=== PATIENT | male | born 1985 | race Caucasian/White ===

== ENCOUNTER 2016-07-24 19:09 | Inpatient (IN) | payer OTHER ==
[~2016-07-24] VITALS: Ht 180.3 cm; Wt 58.0 kg
[2016-07-24] MEDS ORDERED: SODIUM CHLORIDE 0.9% 1000ML 1,000 ML IV STA (19:40)
[2016-07-24] MEDS ORDERED: SODIUM CHLORIDE 0.9% 500ML 500 ML IV STA (19:40)
--- NOTE | 2016-07-24 20:02 | EMERGENCY ROOM VISIT NOTE ---
History Report prepared by Frandy: Karen Reyes Under the Supervision of: Dr. Katelyn Dave M.D. First contact with patient: 19:29 Chief Complaint: WEAKNESS Stated Complaint: COUGH,NO ENERGY,WEAK History of Present Illness The patient is a 31 year old male who presents to the Emergency Room with complaints of worsening weakness over the past several weeks. The patient notes that initially 3 weeks ago he developed head cold symptoms including post nasal drip which developed into a worse chest cold. He saw his PCP initially and was prescribed codeine cough syrup. His cough continued to worsen so he saw his PCP again and was put on an antibiotic, which he finished yesterday. Since then, he has continued to cough and bring up sputum. He also has developed chills, shortness of breath, and significantly worsened weakness. He can barely stand up over the past day or two and he states it takes him about an hour to get himself out of bed. The patient has baseline balance issues and weakness as he has a history of MS, but it is never this bad. He is unsure if he has had any fevers. The patient has not been eating much and has been trying to drink Gatorade because he has been feeling dehydrated. He self catheterizes and has not noticed any urinary symptoms. The patient typically moves around throughout the day but since he has been sick he has been fairly immobile. He developed a bedsore on his left hip since becoming ill, but it does not hurt. He has lost only a few pounds in the past week but does report losing about 30 pounds in the past year. He was diagnosed with MS 6-7 years ago. The patient does not have a history of blood clots. 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 A total of 10 systems reviewed and were otherwise negative. Past Medical & Surgical Medical Problems: (1) Cavitary lesion of lung (2) Multiple sclerosis (3) Multiple sclerosis Family History Cancer Diabetes mellitus Hypertension Lung disease Social History Smoking Status: Never Smoker Smokeless Tobacco Use: No Alcohol Use: none Housing Status: lives with family Occupation Status: unemployed Current/Historical Medications Scheduled Amantadine Hcl (Symmetrel), 100 MG PO BID Bupropion (Wellbutrin Sr), 100 MG PO QAM Bupropion (Wellbutrin Sr), 100 MG PO AFTERNOON Cholecalciferol (Vitamin D), 5,000 UNIT PO DAILY Coenzyme [id number] (Coenzyme Q10), 1 CAP PO DAILY Multivitamin (Multivitamin), 1 TAB PO DAILY Nutritional Supplements (Dhea), 1 CAP PO DAILY Oxybutynin Chloride (Oxybutynin Chloride ER), 10 MG PO BID Teriflunomide (Aubagio), 14 MG PO DAILY Trazodone Hcl (Desyrel), 150-300 MG PO HS Scheduled PRN Meclizine HCl (Meclizine 25), 25 MG PO TID PRN for Nausea or Vomiting Allergies Coded Allergies: Sulfanilamide (Verified Allergy, Severe, Neck pain; hives, 07/24/16) Clindamycin (Verified Allergy, Mild, Rash, 07/24/16) Physical Exam Vital Signs Date Time Temp Pulse Resp B/P Pulse Ox O2 Delivery O2 Flow Rate FiO2 07/24/16 21:45 97 18 105/57 97 Room Air 07/24/16 20:52 107 07/24/16 20:24 101 07/24/16 19:17 36.3 92 18 108/78 93 Room Air Physical Exam Vital signs reviewed. General: Chronically ill-appearing 31 year old male, cachectic, in no significant distress. HEENT: No scleral icterus, PERRLA, neck supple. Atraumatic. Cardiovascular: Regular rate and rhythm, no extra sounds. Pulmonary: Diminished right upper breath sounds to auscultation, normal work of breathing. Abdomen: Soft, nontender, nondistended, positive bowel sounds. Musculoskeletal: Atraumatic, no peripheral edema. Neurologic: Patient awake alert and oriented x 3, equal strength in all 4 extremities although generally weak. Cranial nerves 2 through 12 grossly intact. Skin: Warm, dry, no rash Medical Decision & Procedures ER Provider Diagnostic Interpretation: X-ray results as stated below per interpretation by me and the radiologist: CHEST ONE VIEW PORTABLE HISTORY: Short of breath. COMPARISON: None. FINDINGS: The left lung is clear. No pleural effusions. No pneumothorax. The heart is normal in size. There is a large air-fluid level within the right upper lobe consistent with a cavitary lesion. This measures 8 cm. IMPRESSION: An 8 cm right upper lobe cavitary lesion. Given the patient's age this favors an infectious process such as tuberculosis. A neoplastic process is considered less likely but not entirely excluded. Pulmonary consultation is recommended. Electronically signed by: Emmanuel Vega M.D. 07/24/2016 8:24 PM Dictated Date/Time: 07/24/2016 8:19 PM Laboratory Results 07/24/16 20:58 Red Blood Count 4.02, Mean Corpuscular Volume 85.1, Mean Corpuscular Hemoglobin 28.4, Mean Corpuscular Hemoglobin Concent 33.3, Mean Platelet Volume 9.6, Neutrophils (%) (Auto) 81.5, Lymphocytes (%) (Auto) 8.0, Monocytes (%) (Auto) 8.8, Eosinophils (%) (Auto) 1.0, Basophils (%) (Auto) 0.2, Neutrophils # (Auto) 14.04, Lymphocytes # (Auto) 1.37, Monocytes # (Auto) 1.52, Eosinophils # (Auto) 0.17, Basophils # (Auto) 0.03 07/24/16 20:58 Test 07/24/16 20:58 07/24/16 22:09 White Blood Count 17.22 K/uL (4.8-10.8) Red Blood Count 4.02 M/uL (4.7-6.1) Hemoglobin 11.4 g/dL (14.0-18.0) Hematocrit 34.2 % (42-52) Mean Corpuscular Volume 85.1 fL (80-100) Mean Corpuscular Hemoglobin 28.4 pg (25-34) Mean Corpuscular Hemoglobin Concent 33.3 g/dl (32-36) Platelet Count 371 K/uL (130-400) Mean Platelet Volume 9.6 fL (7.4-10.4) Neutrophils (%) (Auto) 81.5 % Lymphocytes (%) (Auto) 8.0 % Monocytes (%) (Auto) 8.8 % Eosinophils (%) (Auto) 1.0 % Basophils (%) (Auto) 0.2 % Neutrophils # (Auto) 14.04 K/uL (1.4-6.5) Lymphocytes # (Auto) 1.37 K/uL (1.2-3.4) Monocytes # (Auto) 1.52 K/uL (0.11-0.59) Eosinophils # (Auto) 0.17 K/uL (0-0.5) Basophils # (Auto) 0.03 K/uL (0-0.2) RDW Standard Deviation 42.2 fL (36.4-46.3) RDW Coefficient of Variation 13.6 % (11.5-14.5) Immature Granulocyte % (Auto) 0.5 % Immature Granulocyte # (Auto) 0.09 K/uL (0.00-0.02) Toxic Granulation 1+ D-Dimer 1080 ug/L FEU (0-500) Anion Gap 9.0 mmol/L (3-11) Est Creatinine Clear Calc Drug Dose 135.3 ml/min Estimated GFR () > 150.0 Estimated GFR (Non- 129.6 BUN/Creatinine Ratio 20.6 (10-20) Calcium Level 8.2 mg/dl (8.5-10.1) Magnesium Level 1.6 mg/dl (1.8-2.4) Total Bilirubin 0.6 mg/dl (0.2-1) Direct Bilirubin 0.3 mg/dl (0-0.2) Aspartate Amino Transf (AST/SGOT) 56 U/L (15-37) Alanine Aminotransferase (ALT/SGPT) 35 U/L (12-78) Alkaline Phosphatase 148 U/L (45-117) Total Creatine Kinase 639 U/L (39-308) Creatine Kinase MB 2.5 ng/ml (0.5-3.6) Creatine Kinase MB Ratio 0.4 (0-3.0) Troponin I < 0.015 ng/ml (0-0.045) Total Protein 6.4 gm/dl (6.4-8.2) Albumin 2.0 gm/dl (3.4-5.0) Lipase 130 U/L (73-393) Influenza Type A Antigen Neg for Influ A (NEG) Influenza Type B Antigen Neg for Influ B (NEG) Laboratory results per my review. Medications Administered Medications (Trade) Dose Ordered Sig/Camilo Route Start Time Stop Time Status Last Admin Dose Admin Sodium Chloride 500 ml @ 999 mls/hr Q31M STAT IV 07/24/16 19:40 07/24/16 20:10 DC 07/24/16 21:45 999 MLS/HR Sodium Chloride (Nss 1000ml) 1,000 ml @ 125 mls/hr Q8H STAT IV 07/24/16 19:40 07/25/16 03:39 07/24/16 21:45 125 MLS/HR Piperacillin Sod/ Tazobactam Sod (Zosyn Iv) 4.5 gm NOW STAT IV 07/24/16 21:21 07/24/16 21:23 DC 07/24/16 21:45 4.5 GM Levofloxacin (Levaquin / D5W) 750 mg NOW ONCE IV 07/24/16 21:30 07/24/16 21:31 DC 07/24/16 21:45 750 MG ECG Indication: weakness Rate (beats per minute): 106 Rhythm: sinus tachycardia Findings: no ectopy, other (poor quality baseline for interpretation) ED Course 1938: The patient was evaluated in room B3. A complete history and physical examination was performed. Ordered NSS 1000 ml @ 125 mls/hr IV, NSS 500 ml @ 999 mls/hr IV. 2021: I discussed the chest x-ray results with Dr. Baez - Radiology. 2031: Upon reevaluation, the patient is resting comfortably. I discussed laboratory and radiographic results with the patient. He verbalized agreement of the treatment plan. 2034: I discussed the case with Dr. Olivarez - Infectious Disease. He said that TB is pretty unlikely given our location here and that the patient has had no travel outside of the country. He recommended isolation for 24 hours and a work- up. 2041: I spoke with Dr. Chun of the [facility]. The patient will be evaluated for further management and care. 2120: Ordered Zosyn 4.5 gm IV. 2129: Ordered Levofloxacin 750 mg IV. Medical Decision Differential diagnosis: Etiologies such as sepsis, UTI, pneumonia, metabolic, electrolyte abnormalities , cardiac sources, intracerebral event, toxicologic, neurologic, as well as others were entertained. This patient was evaluated and appeared to be in no significant distress. He does appear to be chronically ill on exam. Per family members he has lost a significant amount of weight over the last year. The patient has been on antibiotics, he believes it was amoxicillin, for a cough. Chest x-ray was performed and reveals a large 8 cm right sided cavitary lesion. Per radiology there is a concern for TB given the patient's immunocompromised state. I did speak with Dr. Olivarez of infectious disease who feels that given the patient's lack of travel and location [place] that TB is less likely. He has recommended AFB smears. The patient remained on precautions. Patient was given IV Zosyn IV Levaquin and hydrated with normal saline solution. The case was discussed with Dr. Chun of the hospitalist service who will evaluate the patient for further management. Patient and family are aware of the plan and agree. Consults Time Called: -- Consulting Physician: Dr. Baez - Radiology Returned Call: 2021 I discussed the chest x-ray results with Dr. Baez - Radiology. Additional Consults: Time Called: 2029 Consulted Physician: Dr. Olivarez - Infectious Disease Returned Call: 2034 Additional Comments: I discussed the case with Dr. Olivarez - [facility]. He said that TB is pretty unlikely given our location here and that the patient has had no travel outside of the country. He recommended isolation for 24 hours and a work-up. Time Called: 2029 Consulted Physician: Dr. Chun of the [facility] Returned Call: 2041 Additional Comments: I spoke with Dr. Chun of the [facility]. The patient will be evaluated for further management and care. Impression Primary Impression: Cavitary pneumonia Additional Impressions: Multiple sclerosis, Cachexia Scribe Attestation The scribe's documentation has been prepared under my direction and personally reviewed by me in its entirety. I confirm that the note above accurately reflects all work, treatment, procedures, and medical decision making performed by me. Departure Information Dispostion Being Evaluated By Hospitalist Referrals Mani Chao M.D. (PCP) Patient Instructions A Signature Page, My [facility]
--- NOTE | 2016-07-24 20:26 | DIAGNOSTIC IMAGING REPORT ---
CHEST ONE VIEW PORTABLE HISTORY: Short of breath. COMPARISON: None. FINDINGS: The left lung is clear. No pleural effusions. No pneumothorax. The heart is normal in size. There is a large air-fluid level within the right upper lobe consistent with a cavitary lesion. This measures 8 cm. IMPRESSION: An 8 cm right upper lobe cavitary lesion. Given the patient's age this favors an infectious process such as tuberculosis. A neoplastic process is considered less likely but not entirely excluded. Pulmonary consultation is recommended. Electronically signed by: Emmanuel Vega M.D. 07/24/2016 8:24 PM Dictated Date/Time: 07/24/2016 8:19 PM
[2016-07-24] MEDS ORDERED: COENCAP8 PO (20:38)
[2016-07-24] MEDS ORDERED: AMAN100T PO (20:38)
[2016-07-24] MEDS ORDERED: [UNRECOGNIZED DRUG - CODE] PO (20:38)
[2016-07-24] MEDS ORDERED: DTRSR/10 PO (20:38)
[2016-07-24] MEDS ORDERED: MECL-91 PO (20:38)
[2016-07-24] MEDS ORDERED: BUPR100T8 PO ×2 (20:38)
[2016-07-24] MEDS ORDERED: NUTR50CA PO (20:38)
[2016-07-24] MEDS ORDERED: TRAZ1TAB52 PO (20:38)
[2016-07-24] MEDS ORDERED: MULT-506 PO (20:38)
[2016-07-24] MEDS ORDERED: CHOL1TAB42 PO (20:38)
[2016-07-24 21:18] LABS: HEMATOCRIT 34.2 % (42-52); MEAN CELL VOLUME 85.1 fL (80-100); MEAN CORPUSCULAR HEMOGLOBIN 28.4 pg (25-34); MEAN CORPUSCULAR HGB CONC 33.3 g/dl (32-36); MEAN PLATELET VOLUME 9.6 fL (7.4-10.4); PLATELET COUNT 371 K/uL (130-400); RED BLOOD COUNT 4.02 M/uL (4.7-6.1); WHITE BLOOD COUNT 17.22 K/uL (4.8-10.8)
[2016-07-24] MEDS ORDERED: PIPERACILLIN/TAZOBACTAM 4.5 GM/100ML D5W IV STA (21:21)
[2016-07-24] MEDS ORDERED: LEVAQUIN 750MG / 150ML D5W IV ONE (21:30)
[2016-07-24 21:35] LABS: ALT/SGPT 35 U/L (12-78); BLOOD UREA NITROGEN 13 mg/dl (7-18); BUN/CREATININE RATIO 20.6 (10-20); CALCIUM 8.2 mg/dl (8.5-10.1); CARBON DIOXIDE 28 mmol/L (21-32); CHLORIDE 100 mmol/L (98-107); CREATININE 0.65 mg/dl (0.60-1.40); GLUCOSE 88 mg/dl (70-99); MAGNESIUM 1.6 mg/dl (1.8-2.4); POTASSIUM 3.6 mmol/L (3.5-5.1); SODIUM 137 mmol/L (136-145)
[2016-07-24 21:40] LABS: ALKALINE PHOSPHATASE 148 U/L (45-117); AST/SGOT 56 U/L (15-37); CKMB/CK RATIO 0.4 (0-3.0)
[2016-07-24 21:44] LABS: BASO % 0.2 %; BASO ABS # 0.03 K/uL (0-0.2); COMPLETE YES; IG% 0.5 %; LYMPH ABS # 1.37 K/uL (1.2-3.4); MONO % 8.8 %; NEUT % 81.5 %; TOXIC GRANULATION 1+
[2016-07-24] MEDS ORDERED: MAGNESIUM HYDROXIDE SUSP 30 ML UDC PO PRN (21:45)
[2016-07-24] MEDS ORDERED: CASPOFUNGIN INJ 70 MG in SODIUM CHLORIDE 0.9% 250ML 250 ML IV SCH (21:45)
[2016-07-24] MEDS ORDERED: ACETAMINOPHEN 325 MG TAB PO PRN (21:45)
[2016-07-24] MEDS ORDERED: ONDANSETRON INJ 2 MG/ML 2 ML VIAL IV PRN (21:45)
[2016-07-24] MEDS ORDERED: ALUMINUM/MAGNESIUM/SIMETH (MAALOX MAX) 30 ML UDC PO PRN (21:45)
[2016-07-24] MEDS ORDERED: POLYETHYLENE (MIRALAX) 17 GM PACK PO PRN (22:00)
[2016-07-24] MEDS ORDERED: MECLIZINE HCL 25 MG TAB PO PRN (22:30)
[2016-07-24] MEDS ORDERED: BISACODYL 5 MG TABEC PO PRN (22:30)
[2016-07-24] MEDS ORDERED: OPTIRAY 320 IV PRN (22:45)
[2016-07-24] MEDS: SODIUM CHLORIDE 0.9% 1000ML 1,000 ML IV SCH (22:45)
--- NOTE | 2016-07-24 22:49 | History and Physical ---
History & Physical Date & Time of Service: Jul 24, 2016 at 22:33 Chief Complaint: Cough,No Energy,Weak Primary Care Physician: Mani Chao M.D. History of Present Illness Source: patient, family, clinic records This is a 31 year old male with PMH of MS, neurogenic bladder requiring intermittent self catheterizations - presented here secondary to productive cough for the past few days, weakness and a significant weight loss in the past year - as per the father, he has lost around 25-30 lbs. in the past year. He has been having upper respiratory problems for a few weeks now and has seen his PCP for this. He was given Augmentin for 10 days and he had finished the course of antibiotics, but the cough and sputum production persisted and worsened. He presented to the ER and had an CXR done showing a cavitary lesion in the right upper lobe. He has no travel history outside of [facility]. He denies chest pain/denies shortness of breath. Past Medical/Surgical History Medical Problems: (1) Multiple sclerosis Status: Chronic Family History Cancer Diabetes mellitus Hypertension Lung disease Social History Smoking Status: Never Smoker Smokeless Tobacco Use: No Occupational Status: unemployed Allergies Coded Allergies: Sulfanilamide (Verified Allergy, Severe, Neck pain; hives, 07/24/16) Clindamycin (Verified Allergy, Mild, Rash, 07/24/16) Home Medications Scheduled Amantadine Hcl (Symmetrel), 100 MG PO BID Bupropion (Wellbutrin Sr), 100 MG PO QAM Bupropion (Wellbutrin Sr), 100 MG PO AFTERNOON Cholecalciferol (Vitamin D), 5,000 UNIT PO DAILY Coenzyme [id number] (Coenzyme Q10), 1 CAP PO DAILY Multivitamin (Multivitamin), 1 TAB PO DAILY Nutritional Supplements (Dhea), 1 CAP PO DAILY Oxybutynin Chloride (Oxybutynin Chloride ER), 10 MG PO BID Teriflunomide (Aubagio), 14 MG PO DAILY Trazodone Hcl (Desyrel), 150-300 MG PO HS Scheduled PRN Meclizine HCl (Meclizine 25), 25 MG PO TID PRN for Nausea or Vomiting Review of Systems Constitutional: + fatigue, + weakness, + weight loss, No chills, No fever, No sweats ENT: No hearing loss Respiratory: + cough, + sputum, No dyspnea at rest, No dyspnea on exertion, No hemoptysis, No shortness of breath, No wheezing Cardiovascular: No chest pain, No edema, No palpitations Abdomen: No diarrhea, No nausea, No pain, No vomiting Musculoskeletal: No joint pain, No muscle pain Genitourinary - Male: + urinary retention (chronic) Neurologic: No memory loss Psychiatric: + anxiety, + depression symptoms (controlled with medications), + insomnia Hematologic / Lymphatic: No abnormal bleeding/bruising Integumentary: No rash Allergic / Immunologic: No environmental allergies, No seasonal allergies Physical Exam Vital Signs Date Time Temp Pulse Resp B/P Pulse Ox O2 Delivery O2 Flow Rate FiO2 07/24/16 21:45 97 18 105/57 97 Room Air 07/24/16 20:52 107 07/24/16 20:24 101 07/24/16 19:17 36.3 92 18 108/78 93 Room Air General Appearance: no apparent distress, + cachetic, + thin Head: normocephalic, atraumatic ENT: + pertinent finding (temporal wasting) Respiratory/Chest: no respiratory distress, no accessory muscle use, + decreased breath sounds Cardiovascular: regular rate, rhythm, no edema, no murmur Abdomen/GI: normal bowel sounds, non tender, soft Extremities/Musculoskelatal: no calf tenderness, normal capillary refill, no pedal edema Neurologic/Psych: no motor/sensory deficits, alert, normal mood/affect Skin: normal color Lymphatic: no adenopathy Diagnostics Laboratory Results Results Past 24 Hours Test 07/24/16 20:58 07/24/16 22:09 Range/Units White Blood Count 17.22 4.8-10.8 K/uL Red Blood Count 4.02 4.7-6.1 M/uL Hemoglobin 11.4 14.0-18.0 g/dL Hematocrit 34.2 42-52 % Mean Corpuscular Volume 85.1 80-100 fL Mean Corpuscular Hemoglobin 28.4 25-34 pg Mean Corpuscular Hemoglobin Concent 33.3 32-36 g/dl Platelet Count 371 130-400 K/uL Mean Platelet Volume 9.6 7.4-10.4 fL Neutrophils (%) (Auto) 81.5 % Lymphocytes (%) (Auto) 8.0 % Monocytes (%) (Auto) 8.8 % Eosinophils (%) (Auto) 1.0 % Basophils (%) (Auto) 0.2 % Neutrophils # (Auto) 14.04 1.4-6.5 K/uL Lymphocytes # (Auto) 1.37 1.2-3.4 K/uL Monocytes # (Auto) 1.52 0.11-0.59 K/uL Eosinophils # (Auto) 0.17 0-0.5 K/uL Basophils # (Auto) 0.03 0-0.2 K/uL RDW Standard Deviation 42.2 36.4-46.3 fL RDW Coefficient of Variation 13.6 11.5-14.5 % Immature Granulocyte % (Auto) 0.5 % Immature Granulocyte # (Auto) 0.09 0.00-0.02 K/uL Toxic Granulation 1+ D-Dimer 1080 0-500 ug/L FEU Sodium Level 137 136-145 mmol/L Potassium Level 3.6 3.5-5.1 mmol/L Chloride Level 100 98-107 mmol/L Carbon Dioxide Level 28 21-32 mmol/L Anion Gap 9.0 3-11 mmol/L Blood Urea Nitrogen 13 7-18 mg/dl Creatinine 0.65 0.60-1.40 mg/dl Est Creatinine Clear Calc Drug Dose 135.3 ml/min Estimated GFR () > 150.0 Estimated GFR (Non- 129.6 BUN/Creatinine Ratio 20.6 10-20 Random Glucose 88 70-99 mg/dl Calcium Level 8.2 8.5-10.1 mg/dl Magnesium Level 1.6 1.8-2.4 mg/dl Total Bilirubin 0.6 0.2-1 mg/dl Direct Bilirubin 0.3 0-0.2 mg/dl Aspartate Amino Transf (AST/SGOT) 56 15-37 U/L Alanine Aminotransferase (ALT/SGPT) 35 12-78 U/L Alkaline Phosphatase 148 45-117 U/L Total Creatine Kinase 639 39-308 U/L Creatine Kinase MB 2.5 0.5-3.6 ng/ml Creatine Kinase MB Ratio 0.4 0-3.0 Troponin I < 0.015 0-0.045 ng/ml Total Protein 6.4 6.4-8.2 gm/dl Albumin 2.0 3.4-5.0 gm/dl Lipase 130 73-393 U/L Microbiology Results 07/24/16 Blood Culture, Received Pending 07/24/16 Blood Culture, Received Pending Diagnostic Radiology CHEST ONE VIEW PORTABLE HISTORY: Short of breath. COMPARISON: None. FINDINGS: The left lung is clear. No pleural effusions. No pneumothorax. The heart is normal in size. There is a large air-fluid level within the right upper lobe consistent with a cavitary lesion. This measures 8 cm. IMPRESSION: An 8 cm right upper lobe cavitary lesion. Given the patient's age this favors an infectious process such as tuberculosis. A neoplastic process is considered less likely but not entirely excluded. Pulmonary consultation is recommended. Impression Assessment and Plan This is a 31 year old male with PMH of MS, neurogenic bladder requiring intermittent self catheterizations - presented here secondary to productive cough Cavitary Lung Lesion -->right upper lobe cavitary lung lesion -->patient with significant cough/sputum production for 3 weeks -->weight loss for one year -->no smoking history -->denies significant lung infections; hx. of MS -->concerning for TB - though no travel history -->+leukocytosis, +tachycardia -->added Zosyn + Levaquin -->caspofungin x 1 -->blood cultures + sputum cultures are pending -->AFB + Quantiferon gold pending -->currently in negative pressure/isolation precautions -->Pulmonary and ID consultations placed Elevated D-dimer -->with tachycardia, mild hypoxia as well -->will obtain CT chest for PE as well as further evaluation of cavitary lung lesion Neurogenic Bladder -->patient with hx. of urethral strictures -->intermittently self catheterizes -->will place Andino catheter for convenience here -->UA pending + culture pending DVT ppx -->subq lovenox FULL CODE VTE Prophylaxis VTE Risk Assessment Done? Y/N: Yes Risk Level: Moderate
[2016-07-25] VITALS: O2SAT 100
[2016-07-25] MEDS: MAGNESIUM SULFATE 1GM / D5W 1 GM in PREMIXED IN D5W 100 ML IV SCH ×2 (00:30→01:30)
[2016-07-25] MEDS: OXYBUTYNIN CHLORIDE 5 MG TABCR PO SCH ×3 (02:20→20:33)
[2016-07-25] MEDS: TRAZODONE HCL 50 MG TAB PO SCH ×2 (02:21→20:34)
[2016-07-25] MEDS: AMANTADINE HCL 100 MG CAP PO SCH ×3 (02:21→20:33)
[2016-07-25] MEDS: BuPROPion SR 100 MG TABCR PO SCH ×3 (02:22→17:34)
[2016-07-25 03:59] LABS: URINE APPEARANCE CLEAR (CLEAR); URINE COLOR DK YELLOW; URINE EPITHELIAL CELL AUTO >30 /lpf (0-5); URINE NITRITE NEG (NEG); URINE PH 5.5 (4.5-7.5); URINE SPECIFIC GRAVITY 1.041 (1.000-1.030); UROBILINOGEN POS (NEG); ZZURINE CULT IF INDIC CATH NO
[2016-07-25 04:00] LABS: MANUAL MICROSCOPIC REQUIRED? NO; REVIEW REQ? YES
[2016-07-25 04:02] LABS: URINE BILIRUBIN NEG (NEG)
[2016-07-25 04:11] LABS: URINE MUCUS PRESENT (NONE PRSENT)
[2016-07-25] MEDS: CHLORASEPTIC 1.4% SOLN 180 ML BTL MT PRN ×2 (05:12→18:43)
[2016-07-25 05:49] VITALS: BP 98/61; PULSE 98; TEMP 37.4; O2SAT 100; Ht 180.3 cm; Wt 58.0 kg
[2016-07-25 05:59] LABS: BASO % 0.3 %; BASO ABS # 0.03 K/uL (0-0.2); COMPLETE YES; EOS % 1.6 %; IG% 0.7 %; LYMPH % 14.8 %; LYMPH ABS # 1.48 K/uL (1.2-3.4); MEAN CORPUSCULAR HEMOGLOBIN 28.7 pg (25-34); MEAN CORPUSCULAR HGB CONC 33.8 g/dl (32-36); MEAN PLATELET VOLUME 9.5 fL (7.4-10.4); MONO % 13.7 %; NEUT % 68.9 %; PLATELET COUNT 317 K/uL (130-400); RED BLOOD COUNT 3.41 M/uL (4.7-6.1)
[2016-07-25 06:05] LABS: INR 1.4 (0.9-1.1); PROTHROMBIN TIME (PATIENT) 15.5 SECONDS (9.0-12.0)
[2016-07-25 06:32] LABS: BUN/CREATININE RATIO 15.8 (10-20); CALCIUM 7.5 mg/dl (8.5-10.1); CARBON DIOXIDE 25 mmol/L (21-32); CHLORIDE 106 mmol/L (98-107); CREATININE 0.53 mg/dl (0.60-1.40); GLUCOSE 87 mg/dl (70-99); MAGNESIUM 2.2 mg/dl (1.8-2.4); POTASSIUM 3.6 mmol/L (3.5-5.1); SODIUM 140 mmol/L (136-145)
[2016-07-25 06:50] LABS: BLOOD UREA NITROGEN 8 mg/dl (7-18)
--- NOTE | 2016-07-25 07:19 | DIAGNOSTIC IMAGING REPORT ---
CHEST CTA for PULMONARY ARTERIES CT DOSE: 304.41 mGy.cm HISTORY: Elevated d-dimer. Cough. TECHNIQUE: Multiaxial CT images of the chest were performed following the intravenous administration of contrast to evaluate the pulmonary arteries. Maximal intensity projection images were also obtained. COMPARISON STUDY: Chest 07/24/2016. FINDINGS: Normal caliber thoracic aorta with no evidence for dissection. Small pericardial effusion. Mild thickening at the gastroesophageal junction. No pleural effusions. There are few scattered filling defects seen within the bilateral lower lobe subsegmental pulmonary arteries and the left lower lobe segmental pulmonary arteries consistent with pulmonary embolus. The main pulmonary arteries are patent. The visualized liver, spleen, and adrenal glands are unremarkable. Mild right hilar lymphadenopathy. No significant mediastinal or left hilar lymphadenopathy. The central airways are patent. No pneumothorax. A few tiny scattered patchy ground glass densities within the left mid to lower lung zone. The large right upper lobe cavitary lesion is again noted. This contains a fluid level. This measures 10 cm in size. This demonstrates a slightly thickened and irregular wall. Multiple additional scattered patchy groundglass airspace opacities within the right lung. There are also a few nodular densities within the right upper lobe with the largest on image 176 measuring 1 cm. These are consistent with small satellite nodules. IMPRESSION: 1. A few segmental/subsegmental pulmonary emboli within the bilateral lower lobes. 2. A 10 cm cavitary lesion within the right upper lobe with an air-fluid level and scattered patchy groundglass airspace opacities within the lungs, right greater than left. There are also a few satellite nodules within the right upper lobe as described above. This most likely represents an infectious process such as tuberculosis. A neoplastic process is considered less likely given the patient's age but not entirely excluded. Recommend follow-up to complete resolution. 3. Small pericardial effusion. 4. Mild right hilar lymphadenopathy. This may be reactive. 5. Mild thickening at the gastroesophageal junction. Electronically signed by: Emmanuel Vega M.D. 07/25/2016 7:17 AM Dictated Date/Time: 07/25/2016 7:07 AM
[2016-07-25 07:55] VITALS: BP 92/55; PULSE 94; TEMP 36.7; O2SAT 96
[2016-07-25] MEDS ORDERED: COENZYME Q10 VITAMIN E PO SCH (08:00)
[2016-07-25] MEDS ORDERED: ENOXAPARIN 40 MG/0.4 ML SYR SQ SCH (08:00)
[2016-07-25] MEDS ORDERED: OXYBUTYNIN CHLORIDE 5 MG TAB PO SCH (08:00)
[2016-07-25] MEDS ORDERED: NUTRITIONAL SUPPLEMENTS PO SCH (08:00)
[2016-07-25] MEDS: DOCUSATE SODIUM 100 MG CAP PO SCH ×2 (08:08→20:33)
[2016-07-25] MEDS: CHOLECALCIFEROL 1000 INTER.UNIT TAB PO SCH (08:08)
[2016-07-25] MEDS: SENNA 8.6 MG TAB PO SCH (08:08)
[2016-07-25] MEDS: MULTIVITAMIN TAB PO SCH (08:08)
[2016-07-25] MEDS: SODIUM CHLORIDE 0.9% 1000ML 1,000 ML IV SCH ×2 (08:09→18:33)
[2016-07-25] MEDS: GUAIFENESIN 600 MG TABCR PO SCH ×2 (08:09→20:34)
--- NOTE | 2016-07-25 09:18 | PULMONARY CONSULTATION ---
DATE OF CONSULTATION: 07/25/2016 TIME: 07:50 a.m. HISTORY OF PRESENT ILLNESS: The patient was seen in room 400, bed 1. He is a 31-year-old male with a history of multiple sclerosis since age 24. He has been acutely ill for about the past month. He has been feeling very weak. At first, he had a head cold. He had some postnasal drip. Subsequently, it went into his chest. He began coughing. He has had a cough on a regular basis, productive of thick yellow sputum. He does not notice that it tastes or smells terribly bad. He has not expectorated any blood at any time. The cough does not awaken him at night. He has had some shortness of breath more than normal. He has had some chills, but no sweats. He is not aware of any fevers. He had a very low grade fever upon admission. He denies having any vomiting. He had a history of reflux in the past, but he has not had any for quite a while. He denies any regurgitation. He denies any episodes of being unconscious. He denies any significant alcohol use at all and he denies having any alcohol abuse at any time. He is not immunosuppressed as far as he knows. He denies a history of drug use. He denies blood transfusions. He denies having had any homosexual contacts. He has had diarrhea for about a week. This probably occurred after he was given some antibiotics. He did see his primary doctor, who had given him an antibiotic that may have been Augmentin. He has had severe weakness. It has been so bad that he has not been getting off of the bed or couch much at all. His appetite has decreased. He has lost weight. Reportedly, there is a 30-pound weight loss in about a year. The patient reportedly has been trying to drink Gatorade to keep hydrated because he has not been very hungry at all. He has a history of urinary problems related to MS. He self catheterizes between 6 and 8 times per day. He has not had any urinary symptoms. The patient has developed a bed sore on the left hip since he has been ill. PAST SURGICAL HISTORY: He had an urologic surgery for an urethral stricture, where they utilized some mucosa from his mouth. PAST MEDICAL HISTORY: Positive only for the MS and the complications related to MS. SOCIAL HISTORY: Tobacco never. ETOH -- rare. ALLERGIES: LISTED ALLERGIES TO SULFA, WHICH CAUSED A PRETTY SEVERE REACTION ACCORDING TO THE PATIENT. THIS WAS A RASH AND ALSO SOME PAIN IN HIS NECK. CLINDAMYCIN ALSO GAVE A MILD RASH. FAMILY HISTORY: Father living, age 63, diabetes. Mother living, age 58, COPD. One brother alive and well. OCCUPATIONAL HISTORY: He is disabled. 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 The patient denies having any family members with tuberculosis. He denies any exposure history to tuberculosis. MEDICATIONS: At home, 1. Amantadine 100 mg b.i.d. 2. Bupropion 100 mg in the morning and in the afternoon. 3. Vitamin D 1 daily. 4. CoQ10 one daily. 5. Meclizine 25 mg t.i.d. p.r.n. 6. Multivitamin. 7. Oxybutynin 10 mg b.i.d. 8. Teriflunomide 14 mg daily. 9. Trazodone 150 mg 1-2 tabs at bedtime. REVIEW OF SYSTEMS: Essentially negative except for the above-mentioned complaints. Ten systems were reviewed. PHYSICAL EXAMINATION: GENERAL: The patient is a 31-year-old male who was cooperative, alert and oriented. He was in no distress. He appears emaciated. Weight is 58 kilograms and his BMI is 17.6. His hair is very thin. HEENT: His pupils were reactive. Nares were unremarkable. Mouth exam showed some phlegm in the posterior pharynx. NECK: Palpation of the neck reveals no lymph nodes. CHEST: Showing normal expansion. The breath sounds seem diminished throughout. Some of this seemed related to the patient's weakness. Very mild rhonchi were heard in the right chest posteriorly. Respiratory rate was 20 breaths per minute. VITAL SIGNS: Heart rate was 98 beats per minute and regular. Blood pressure 98/61. Temperature today 37.4. Oxygen saturation 100% on room air. ABDOMEN: Soft. Again, he appears cachectic. Bowel sounds were well heard. There was no tenderness to palpation or masses. Andino catheter is in place. EXTREMITIES: Showed no cyanosis, clubbing or edema. All extremities were generally weak. He has some spasticity, especially of the left leg. Chest x-ray showed a large cavity, which is containing an air-fluid level in the right upper lobe and it measures 8 cm. CAT scan of the chest showed a few scattered filling defects within the lower lobe subsegmental arteries, consistent with pulmonary embolus. There is a large right upper lobe cavity, measuring 10 cm. Patchy infiltrates are also noted in the right middle lobe and right lower lobe. These appear slightly nodular. There was mild right hilar lymphadenopathy. There was mild thickening at the GE junction. CBC showed a white count of 17.22. Repeat this morning shows a white count of 10. Hemoglobin last evening was 11.4 and this morning is 9.8. Platelets are 371,000. The differential count showed 81.5 neutrophils, 8 lymphocytes, 8.8 monocytes, 1.0 eosinophils and 0.2 basophils. D-dimer was elevated at 1080. INR was 1.4. Urinalysis showed trace ketones, positive urobilinogen, 5-10 WBCs, 0-4 RBCs, and negative for bacteria. Electrolytes show sodium 140, potassium 3.6, chloride 106, and bicarbonate 25. The BUN is 8 with a creatinine of 0.53. Calcium is 7.5 and magnesium 2.2. AST was elevated at 56, ALT was normal at 35, and alkaline phosphatase was elevated at 148. CPK was elevated at 639. Flu test was negative. IMPRESSION: 1. Large fluid filled cavity, right upper lobe. 2. Acute pulmonary embolism. 3. Multiple sclerosis. 4. Elevated liver function tests. COMMENTS AND RECOMMENDATIONS: The patient has cavitary lung disease. Differential diagnosis would involve infectious disease. This would include both tuberculous and non-tuberculous. He has no history of tuberculosis or exposure to tuberculosis. There is no history of immunosuppression. Lung abscess would be another consideration. He denies swallowing dysfunction or problems with aspiration. Nonetheless, a lung abscess could have these findings. The possibility of neoplasm seems less likely in light of the patient's age. It is not entirely excluded, but I believe that is less likely. Unusual causes of cavitary lung disease such as Iman's would be less likely considering the clinical course and an absence of hematuria, etc. Complicating all of this is that the patient has pulmonary embolism, likely related to his being essentially at bed rest. Multiple sputum samples are being obtained. This should be for both routine culture as well as acid fast smear and culture. If they are entirely nondiagnostic, the patient may need bronchoscopy. In light of that possibility, I believe treating the pulmonary embolism might best be accomplished for now with intravenous heparin. That would allow stopping the heparin fairly abruptly if the procedure were necessary. He has already received a dose of levofloxacin and Zosyn. Infectious disease is consulted and we will defer to them regarding the antibiotic of choice for now. He should have venous Dopplers done of the lower extremities. Thank you very much for asking me to assist in his care. Dr. Waddell will be seeing the patient as of tomorrow.
--- NOTE | 2016-07-25 09:44 | Progress Note ---
Medicine Progress Note Date & Time of Visit: Jul 25, 2016 at 09:36. Subjective seen resting in bed, comfortable, appears somewhat weak states he is still having productive cough, yellow and thick phlegm, no hemoptysis, no dyspnea denies chest pain, palpitations, dizziness, nausea no abdominal pain, signs of bleeding appetite poor Objective Last 8 Hrs Date Time Temp Pulse Resp B/P Pulse Ox O2 Delivery O2 Flow Rate FiO2 07/25/16 07:55 36.7 94 16 92/55 96 Room Air 07/25/16 05:49 37.4 98 20 98/61 100 Room Air Physical Exam: General- oriented x 3, not in distress, cachectic, speaks in sentences with no effort Head- atraumatic Eyes-EOMI, anicteric ENT- oropharynx clear Neck- supple, no JVD, no adenopathy, no thyromegaly Lungs- clear to auscultation bilaterally Heart- normal rate, regular rhythm; no murmurs Abdomen- normal bowel sounds, soft, nontender Extremities- no pretibial edema, no calf tenderness; peripheral pulses intact Neuro- alert, oriented x 3; no gross focal deficits Skin- warm & dry Laboratory Results: Last 24 Hours Test 07/24/16 20:58 07/24/16 22:09 07/25/16 02:30 07/25/16 05:15 White Blood Count 17.22 K/uL 10.00 K/uL Red Blood Count 4.02 M/uL 3.41 M/uL Hemoglobin 11.4 g/dL 9.8 g/dL Hematocrit 34.2 % 29.0 % Mean Corpuscular Volume 85.1 fL 85.0 fL Mean Corpuscular Hemoglobin 28.4 pg 28.7 pg Mean Corpuscular Hemoglobin Concent 33.3 g/dl 33.8 g/dl Platelet Count 371 K/uL 317 K/uL Mean Platelet Volume 9.6 fL 9.5 fL Neutrophils (%) (Auto) 81.5 % 68.9 % Lymphocytes (%) (Auto) 8.0 % 14.8 % Monocytes (%) (Auto) 8.8 % 13.7 % Eosinophils (%) (Auto) 1.0 % 1.6 % Basophils (%) (Auto) 0.2 % 0.3 % Neutrophils # (Auto) 14.04 K/uL 6.89 K/uL Lymphocytes # (Auto) 1.37 K/uL 1.48 K/uL Monocytes # (Auto) 1.52 K/uL 1.37 K/uL Eosinophils # (Auto) 0.17 K/uL 0.16 K/uL Basophils # (Auto) 0.03 K/uL 0.03 K/uL RDW Standard Deviation 42.2 fL 42.2 fL RDW Coefficient of Variation 13.6 % 13.6 % Immature Granulocyte % (Auto) 0.5 % 0.7 % Immature Granulocyte # (Auto) 0.09 K/uL 0.07 K/uL Toxic Granulation 1+ D-Dimer 1080 ug/L FEU Sodium Level 137 mmol/L 140 mmol/L Potassium Level 3.6 mmol/L 3.6 mmol/L Chloride Level 100 mmol/L 106 mmol/L Carbon Dioxide Level 28 mmol/L 25 mmol/L Anion Gap 9.0 mmol/L 9.0 mmol/L Blood Urea Nitrogen 13 mg/dl 8 mg/dl Creatinine 0.65 mg/dl 0.53 mg/dl Est Creatinine Clear Calc Drug Dose 135.3 ml/min 165.7 ml/min Estimated GFR () > 150.0 > 150.0 Estimated GFR (Non- 129.6 141.0 BUN/Creatinine Ratio 20.6 15.8 Random Glucose 88 mg/dl 87 mg/dl Calcium Level 8.2 mg/dl 7.5 mg/dl Magnesium Level 1.6 mg/dl 2.2 mg/dl Total Bilirubin 0.6 mg/dl Direct Bilirubin 0.3 mg/dl Aspartate Amino Transf (AST/SGOT) 56 U/L Alanine Aminotransferase (ALT/SGPT) 35 U/L Alkaline Phosphatase 148 U/L Total Creatine Kinase 639 U/L Creatine Kinase MB 2.5 ng/ml Creatine Kinase MB Ratio 0.4 Troponin I < 0.015 ng/ml Total Protein 6.4 gm/dl Albumin 2.0 gm/dl Lipase 130 U/L Influenza Type A Antigen Neg for Influ A Influenza Type B Antigen Neg for Influ B Urine Color DK YELLOW Urine Appearance CLEAR Urine pH 5.5 Urine Specific [place] 1.041 Urine Protein NEG Urine Glucose (UA) NEG Urine Ketones TRACE Urine Occult Blood NEG Urine Nitrite NEG Urine Bilirubin NEG Urine Urobilinogen POS Urine Leukocyte Esterase SMALL Urine WBC (Auto) 5-10 /hpf Urine RBC (Auto) 0-4 /hpf Urine Hyaline Casts (Auto) 5-10 /lpf Urine Epithelial Cells (Auto) >30 /lpf Urine Bacteria (Auto) NEG Urine Renal Epithelial Cells /lpf Urine Mucus PRESENT Prothrombin Time 15.5 SECONDS Prothromb Time International Ratio 1.4 Date/Time Source Procedure Growth Status 07/25/16 02:30 Blood Acid Fast Stain Pending Received 07/25/16 02:30 Blood Mycobacterial Culture Pending Received 07/24/16 20:58 Blood Blood Culture Pending Received 07/24/16 20:02 Blood Blood Culture Pending Received 07/25/16 07:45 Sputum Expectorated Sputum Gram Stain Pending Received 07/25/16 07:45 Sputum Expectorated Sputum Sputum Culture Pending Received 07/24/16 23:00 Sputum Expectorated Sputum Gram Stain - Final Complete 07/24/16 23:00 Sputum Expectorated Sputum Sputum Culture - Final Complete Assessment & Plan This is a 31 year old male with PMH of MS, neurogenic bladder requiring intermittent self catheterizations - presented here secondary to productive cough CAVITARY LUNG LESION, POSSIBLE LUNG ABSCESS, r/o TB - 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? (taken since 2013, MS controlled) - afebrile, tachycardia improving, leukocytosis improved - blood, sputum cultures pending AFB pending - given Zosyn, Levaquin, Caspofungin - will start Vancomycin, continue Zosyn until ID evaluation Airborne precautions will consult Neurology re: possibly holding Aubagio for now - appreciate Pulm and ID input BILATERAL LOWER LOBE PULMONARY EMBOLI - risk factor: underlying illness, sedentary - Heparin IV standard dose with bolus ordered ANEMIA check anemia panel MILD INR ELEVATION check Liver US MULTIPLE SCLEROSIS controlled symptoms with Aubagio, may be causing immunocompromised state, will consult Neurology Neurogenic Bladder -->patient with hx. of urethral strictures -->intermittently self catheterizes -->will place Andino catheter for convenience here -->UA pending + culture pending CACHEXIA likely from underlying infection Nutrition consult DVT ppx will be on heparin FULL CODE Current Inpatient Medications: Current Inpatient Medications Medications (Trade) Dose Ordered Sig/Camilo Route Start Time Stop Time Status Last Admin Dose Admin Acetaminophen (Tylenol Tab) 650 mg Q4H PRN PO 07/24/16 21:45 08/23/16 21:44 Al Hydrox/Mg Hydrox/Simethicone (Maalox Max Susp) 15 ml Q4H PRN PO 07/24/16 21:45 08/23/16 21:44 Magnesium Hydroxide (Milk Of Magnesia Susp) 30 ml Q6H PRN PO 07/24/16 21:45 08/23/16 21:44 Polyethylene (Miralax Powder Packet) 17 gm DAILY PRN PO 07/24/16 22:00 08/23/16 21:59 Ondansetron HCl (Zofran Inj) 4 mg Q6H PRN IV 07/24/16 21:45 08/23/16 21:44 Amantadine HCl (Symmetrel Cap) 100 mg BID PO 07/25/16 08:00 08/24/16 08:59 07/25/16 08:08 100 MG Bupropion HCl (Wellbutrin-Sr Tab) 100 mg DAILY@1500 PO 07/25/16 15:00 08/24/16 14:59 Bupropion HCl (Wellbutrin-Sr Tab) 100 mg QAM PO 07/25/16 08:00 08/24/16 08:59 07/25/16 02:22 100 MG Meclizine HCl (Antivert Tab) 25 mg TID PRN PO 07/24/16 22:30 08/23/16 22:29 Multivitamins (Multivitamin Tab) 1 tab DAILY PO 07/25/16 08:00 08/24/16 08:59 07/25/16 08:08 1 TAB Trazodone HCl (Desyrel Tab) 150 mg HS PO 07/25/16 21:00 08/24/16 20:59 07/25/16 02:21 150 MG Cholecalciferol (Vitamin D Tab) 5,000 inter.unit DAILY PO 07/25/16 08:00 08/24/16 08:59 07/25/16 08:08 5,000 INTER.UNIT Miscellaneous Information (Order Awaiting Action) 1 ea QS N/A 07/25/16 08:00 08/24/16 07:59 Docusate Sodium (coLACE CAP) 100 mg BID PO 07/25/16 08:00 08/24/16 08:59 07/25/16 08:08 100 MG Senna (Senokot Tab) 8.6 mg QAM PO 07/25/16 08:00 08/24/16 08:59 1/8/17 08:08 8.6 MG Bisacodyl 5 mg 5 mg DAILY PRN PO 07/24/16 22:30 08/23/16 22:29 Sodium Chloride (Nss 1000ml) 1,000 ml @ 100 mls/hr Q10H IV 07/24/16 22:45 08/23/16 22:44 07/25/16 08:09 100 MLS/HR Guaifenesin (Mucinex Contr Rel Tab) 600 mg Q12H PO 07/25/16 09:00 08/24/16 08:59 07/25/16 08:09 600 MG Phenol (Chloraseptic 1.4% Rosalie) 1 sprays BID PRN MT 07/24/16 22:45 08/23/16 22:44 07/25/16 05:12 1 SPRAYS Ioversol (Optiray 320) 100 ml UD PRN IV 07/24/16 22:45 07/28/16 22:44 Enoxaparin Sodium (Lovenox Inj) 40 mg QAM SQ 07/25/16 08:00 08/24/16 08:59 07/25/16 08:08 40 MG Oxybutynin Chloride (Ditropan-Xl Tab) 10 mg BID PO 07/25/16 08:00 08/24/16 07:59 07/25/16 02:20 10 MG Miscellaneous Information (Pharmacy Consult) 1 ea NOW STAT N/A 07/25/16 09:27 07/25/16 09:28 UNV Heparin Sodium/ Dextrose 1 ea NOW STAT N/A 07/25/16 09:27 07/25/16 09:28 UNV
[2016-07-25] MEDS ORDERED: PIPERACILL/TAZOBAC CONSULT ACTIVE PRN (10:07)
[2016-07-25] MEDS ORDERED: VANCOMYCIN CONSULT ACTIVE PRN (10:15)
[2016-07-25] MEDS ORDERED: VANCOMYCIN INJ 1,450 MG in SODIUM CHLORIDE 0.9% 500ML 500 ML IV ONE (10:15)
--- NOTE | 2016-07-25 10:29 | Pharmacy Progress Note ---
Pharmacy Antibiotic Consult Date of Service: Jul 25, 2016. Pharmacy Dosing Scope Pharmacy is consulted to initiate vancomycin and zosyn IV dosing therapy, order appropriate labs and adjust drug dose/frequency. Subjective The patient is a 31 year old male admitted on Jul 24, 2016 at 21:44. Objective Height (Feet): 5 Height (Inches): 11.50 Weight (Kilograms): 58.000 Lab Results (24hrs): Laboratory Tests Test 07/24/16 20:58 07/25/16 05:15 BUN/Creatinine Ratio 20.6 15.8 Blood Urea Nitrogen 13 mg/dl 8 mg/dl Creatinine 0.65 mg/dl 0.53 mg/dl White Blood Count 17.22 K/uL 10.00 K/uL Red Blood Count 4.02 M/uL 3.41 M/uL Hemoglobin 11.4 g/dL 9.8 g/dL Hematocrit 34.2 % 29.0 % Mean Corpuscular Volume 85.1 fL 85.0 fL Mean Corpuscular Hemoglobin 28.4 pg 28.7 pg Mean Corpuscular Hemoglobin Concent 33.3 g/dl 33.8 g/dl Platelet Count 371 K/uL 317 K/uL Mean Platelet Volume 9.6 fL 9.5 fL Neutrophils (%) (Auto) 81.5 % 68.9 % Lymphocytes (%) (Auto) 8.0 % 14.8 % Monocytes (%) (Auto) 8.8 % 13.7 % Eosinophils (%) (Auto) 1.0 % 1.6 % Basophils (%) (Auto) 0.2 % 0.3 % Neutrophils # (Auto) 14.04 K/uL 6.89 K/uL Lymphocytes # (Auto) 1.37 K/uL 1.48 K/uL Monocytes # (Auto) 1.52 K/uL 1.37 K/uL Eosinophils # (Auto) 0.17 K/uL 0.16 K/uL Basophils # (Auto) 0.03 K/uL 0.03 K/uL Assessment & Plan Patient started on vancomycin and zosyn for possible lung abscess. Tachycardic improving, leukocytosis improved. ID is consulted to follow patient. In ED 07/24 received one time doses of zosyn, levaquin and caspofungin. Concern for immunosupression, hx of MS on medications at home. BC x 2 are ordered and sputum is ordered. Vancomycin: * Will give LD [place] 1450 mg (~25 mg/kg) iv x 1 * Will order MD of 900 mg (~16mg/kg) iv q 8 hrs to achieve an estimated trough ~ 15-20 mcg/ml (goal for PNA/abscess) * Estimated kinetics: t1/2~6.4 hrs, ke~0.108 hr-1 (based upon max CrCl~125 ml/ min) * Will obtain a trough prior to the 1000 dose on 07-26 to ensure therapeutic; note it will be before steady state, but want to ensure trough >15 mcg/ml Zosyn: * dosed 4.5 gm iv q 8 hrs (appropriate for CrCl >20 ml/min; actual CrCl ~165 ml/ min; went with more aggressive dosing due to nature of infection) Pharmacy will continue to follow and will adjust dose/frequency as necessary. Thank you
[2016-07-25] MEDS ORDERED: PIPERACILL/TAZOBAC IV 4.5 GM in DEXTROSE 5% 100ML IV ONE (10:30)
[2016-07-25 10:59] LABS: BASO % 0.2 %; BASO ABS # 0.02 K/uL (0-0.2); HEMATOCRIT 32.6 % (42-52); IG% 0.9 %; LYMPH % 10.1 %; LYMPH ABS # 1.02 K/uL (1.2-3.4); MEAN CELL VOLUME 86.2 fL (80-100); MEAN CORPUSCULAR HEMOGLOBIN 28.8 pg (25-34); MEAN PLATELET VOLUME 9.3 fL (7.4-10.4); NEUT % 76.8 %; PLATELET COUNT 323 K/uL (130-400); RED BLOOD COUNT 3.78 M/uL (4.7-6.1); WHITE BLOOD COUNT 10.08 K/uL (4.8-10.8)
[2016-07-25 11:01] LABS: COMPLETE YES; MEAN CORPUSCULAR HGB CONC 33.4 g/dl (32-36)
[2016-07-25 11:08] LABS: INR 1.4 (0.9-1.1); PARTIAL THROMBOPLASTIN RATIO 1.2; PROTHROMBIN TIME (PATIENT) 14.9 SECONDS (9.0-12.0)
[2016-07-25] MEDS: HEPARIN 25,000 UNIT/500ML D5W 500 ML IV PRN (11:08)
[2016-07-25] MEDS ORDERED: BOOST VANILLA PO SCH ×2 (14:00)
[2016-07-25 15:01] VITALS: BP 90/48; PULSE 101; TEMP 36.9; O2SAT 91
[2016-07-25] MEDS: PIPERACILL/TAZOBAC IV 4.5 GM in DEXTROSE 5% 100ML IV SCH ×2 (16:30→23:36)
--- NOTE | 2016-07-25 17:07 | DIAGNOSTIC IMAGING REPORT ---
ABDOMINAL ULTRASOUND, RIGHT UPPER QUADRANT HISTORY: Elevated liver function tests. COMPARISON: None. FINDINGS: Mild hepatomegaly is noted. No hepatic lesions are identified. There is no biliary ductal dilatation. There are no gallstones. The pancreas is sonographically normal although the tail is obscured by overlying bowel gas. There is no right hydronephrosis. IMPRESSION: 1. No gallstones or biliary ductal dilatation. 2. Mild hepatomegaly. Normal liver morphology. Electronically signed by: Yoni Fung M.D. 07/25/2016 5:05 PM Dictated Date/Time: 07/25/2016 5:04 PM
[2016-07-25] MEDS: BOOST PLUS VANILLA PO SCH ×2 (17:30)
[2016-07-25 17:40] LABS: PARTIAL THROMBOPLASTIN RATIO 1.5
[2016-07-25] MEDS ORDERED: HEPARIN IV BOLUS 5,000 UNIT in SYRINGE 0 ML IV SCH (18:15)
--- NOTE | 2016-07-25 18:17 | Medical Consult ---
Consultation Date of Consultation: Jul 25, 2016. Attending Physician: Danielito Acosta MD Reason for Consultation: cavitary lung lesion History of Present Illness 31-year-old male with long-standing multiple sclerosis, with neurogenic bladder requiring intermittent catheterization, apparently with nonspecific symptoms with weakness and fatigue over the last year with some weight loss, now with 3- 4 weeks of progressively worsening cough, some purulent sputum production, without any obvious response to course of oral Augmentin therapy. He came to the hospital where chest x-ray and CT scan, read by me, show evidence of right upper lobe cavitary type lesion. Sputum studies, cultures, and AFB smears are all pending. Patient currently on airborne precaution. Was started empirically on vancomycin, levofloxacin, and Zosyn. Influenza smear negative. Patient denies any significant travel or exposure history. No contact with tuberculosis. Has been on immunosuppressive therapy for his MS. Past Medical/Surgical History Medical Problems: (1) Cachexia Status: Acute (2) Cavitary pneumonia Status: Acute Medical Problems: (1) Cavitary lesion of lung (2) Multiple sclerosis (3) Multiple sclerosis Family History Cancer Diabetes mellitus Hypertension Lung disease Social History Smoking Status: Never Smoker Smokeless Tobacco Use: No Housing Status: lives with family Occupation Status: unemployed Allergies Coded Allergies: Sulfanilamide (Verified Allergy, Severe, Neck pain; hives, 07/24/16) Clindamycin (Verified Allergy, Mild, Rash, 07/24/16) Current Inpatient Medications Current Inpatient Medications Medications (Trade) Dose Ordered Sig/Acmilo Route Start Time Stop Time Status Last Admin Dose Admin Acetaminophen (Tylenol Tab) 650 mg Q4H PRN PO 07/24/16 21:45 08/23/16 21:44 Al Hydrox/Mg Hydrox/Simethicone (Maalox Max Susp) 15 ml Q4H PRN PO 07/24/16 21:45 08/23/16 21:44 Magnesium Hydroxide (Milk Of Magnesia Susp) 30 ml Q6H PRN PO 07/24/16 21:45 08/23/16 21:44 Polyethylene (Miralax Powder Packet) 17 gm DAILY PRN PO 07/24/16 22:00 08/23/16 21:59 Ondansetron HCl (Zofran Inj) 4 mg Q6H PRN IV 07/24/16 21:45 08/23/16 21:44 Amantadine HCl (Symmetrel Cap) 100 mg BID PO 07/25/16 08:00 08/24/16 08:59 07/25/16 08:08 100 MG Bupropion HCl (Wellbutrin-Sr Tab) 100 mg DAILY@1500 PO 07/25/16 15:00 08/24/16 14:59 07/25/16 17:34 100 MG Bupropion HCl (Wellbutrin-Sr Tab) 100 mg QAM PO 07/25/16 08:00 08/24/16 08:59 07/25/16 10:49 100 MG Meclizine HCl (Antivert Tab) 25 mg TID PRN PO 07/24/16 22:30 08/23/16 22:29 Multivitamins (Multivitamin Tab) 1 tab DAILY PO 07/25/16 08:00 08/24/16 08:59 07/25/16 08:08 1 TAB Trazodone HCl (Desyrel Tab) 150 mg HS PO 07/25/16 21:00 08/24/16 20:59 07/25/16 02:21 150 MG Cholecalciferol (Vitamin D Tab) 5,000 inter.unit DAILY PO 07/25/16 08:00 08/24/16 08:59 07/25/16 08:08 5,000 INTER.UNIT Miscellaneous Information (Order Awaiting Action) 1 ea QS N/A 07/25/16 08:00 08/24/16 07:59 Docusate Sodium (coLACE CAP) 100 mg BID PO 07/25/16 08:00 08/24/16 08:59 07/25/16 08:08 100 MG Senna (Senokot Tab) 8.6 mg QAM PO 07/25/16 08:00 08/24/16 08:59 07/25/16 08:08 8.6 MG Bisacodyl 5 mg 5 mg DAILY PRN PO 07/24/16 22:30 08/23/16 22:29 Sodium Chloride (Nss 1000ml) 1,000 ml @ 100 mls/hr Q10H IV 07/24/16 22:45 08/23/16 22:44 07/25/16 08:09 100 MLS/HR Guaifenesin (Mucinex Contr Rel Tab) 600 mg Q12H PO 07/25/16 09:00 08/24/16 08:59 07/25/16 08:09 600 MG Phenol (Chloraseptic 1.4% [place]) 1 sprays BID PRN MT 07/24/16 22:45 08/23/16 22:44 07/25/16 05:12 1 SPRAYS Ioversol (Optiray 320) 100 ml UD PRN IV 07/24/16 22:45 07/28/16 22:44 Oxybutynin Chloride (Ditropan-Xl Tab) 10 mg BID PO 07/25/16 08:00 08/24/16 07:59 07/25/16 10:49 10 MG Piperacillin Sod/ Tazobactam Sod 1 ea 1 ea UD PRN N/A 07/25/16 10:07 08/24/16 10:06 Piperacillin Sod/ Tazobactam Sod/ Dextrose (Zosyn Iv/D5 100ml) 120 ml @ 30 mls/hr Q8H IV 07/25/16 16:00 08/01/16 15:59 07/25/16 16:30 30 MLS/HR Vancomycin HCl 1 ea 1 ea UD PRN N/A 07/25/16 10:15 08/24/16 10:14 Vancomycin HCl 900 mg/Sodium Chloride 268 ml @ 125 mls/hr Q8H IV 07/25/16 18:00 08/01/16 17:59 Heparin Sodium/ Dextrose (Heparin 25,000 Unit/500ml D5W) 500 ml @ 26 mls/hr [id number] PRN IV 07/25/16 10:45 08/24/16 10:44 07/25/16 11:08 21 MLS/HR Enteral Nutritional Formula (Boost Plus Vanilla) 1 can TIDM PO 07/25/16 17:00 08/24/16 16:59 07/25/16 17:30 1 CAN Miscellaneous Information (Nursing Heparin Iv Rate Change) 1 ea ONE ONCE N/A 07/25/16 18:00 07/25/16 18:01 UNV Review of Systems Constitutional: + fatigue, + fever, + weakness Eyes: No problem reported ENT: No problem reported Respiratory: + cough, + shortness of breath, + sputum, No hemoptysis Cardiovascular: No problem reported Abdomen: No problem reported Musculoskeletal: No problem reported Genitourinary - Male: No problem reported Neurologic: + weakness Psychiatric: No problem reported Endocrine: No problem reported Hematologic / Lymphatic: No problem reported Integumentary: No problem reported Allergic / Immunologic: No problem reported Physical Exam Date Time Temp Pulse Resp B/P Pulse Ox O2 Delivery O2 Flow Rate FiO2 07/25/16 15:01 36.9 101 16 90/48 91 Room Air 07/25/16 11:03 Room Air 07/25/16 07:55 36.7 94 16 92/55 96 Room Air 07/25/16 05:49 37.4 98 20 98/61 100 Room Air 07/25/16 00:00 100 Room Air 07/24/16 22:49 99 18 101/57 98 07/24/16 21:45 97 18 105/57 97 Room Air 07/24/16 20:52 107 07/24/16 20:24 101 07/24/16 19:17 36.3 92 18 108/78 93 Room Air General Appearance: WD/WN, no apparent distress Head: normocephalic, atraumatic Eyes: normal inspection, sclerae normal ENT: normal ENT inspection, hearing grossly normal, pharynx normal Neck: supple, no adenopathy, thyroid normal, trachea midline Respiratory/Chest: chest non-tender, no respiratory distress, no accessory muscle use, + rhonchi (Right upper lobe) Cardiovascular: regular rate, rhythm, no gallop, no murmur Abdomen/GI: normal bowel sounds, non tender, soft, no organomegaly Back: normal inspection, no CVA tenderness Extremities/Musculoskelatal: no calf tenderness, normal capillary refill, non- tender Neurologic/Psych: alert, oriented x 3 Skin: normal color, warm/dry, no rash Lymphatic: no adenopathy Laboratory Results Date/Time Source Procedure Growth Status 07/25/16 17:20 Blood Acid Fast Stain Pending Received 07/25/16 17:20 Blood Mycobacterial Culture Pending Received 07/24/16 20:58 Blood Blood Culture Pending Received 07/24/16 20:02 Blood Blood Culture Pending Received 07/25/16 15:00 Nasal MRSA DNA Surveillance Screen - Final Specimen Negative for MRSA by DNA Probe Complete 07/25/16 07:45 Sputum Expectorated Sputum Acid Fast Stain Pending Received 07/25/16 07:45 Sputum Expectorated Sputum Mycobacterial Culture Pending Received 07/25/16 07:45 Sputum Expectorated Sputum Gram Stain - Final Resulted 07/25/16 07:45 Sputum Expectorated Sputum Sputum Culture Pending Resulted 07/24/16 23:00 Sputum Expectorated Sputum Gram Stain - Final Complete 07/24/16 23:00 Sputum Expectorated Sputum Sputum Culture - Final Complete Last 24 Hours Test 07/24/16 20:58 07/24/16 22:09 07/25/16 02:30 07/25/16 05:15 White Blood Count 17.22 K/uL 10.00 K/uL Red Blood Count 4.02 M/uL 3.41 M/uL Hemoglobin 11.4 g/dL 9.8 g/dL Hematocrit 34.2 % 29.0 % Mean Corpuscular Volume 85.1 fL 85.0 fL Mean Corpuscular Hemoglobin 28.4 pg 28.7 pg Mean Corpuscular Hemoglobin Concent 33.3 g/dl 33.8 g/dl Platelet Count 371 K/uL 317 K/uL Mean Platelet Volume 9.6 fL 9.5 fL Neutrophils (%) (Auto) 81.5 % 68.9 % Lymphocytes (%) (Auto) 8.0 % 14.8 % Monocytes (%) (Auto) 8.8 % 13.7 % Eosinophils (%) (Auto) 1.0 % 1.6 % Basophils (%) (Auto) 0.2 % 0.3 % Neutrophils # (Auto) 14.04 K/uL 6.89 K/uL Lymphocytes # (Auto) 1.37 K/uL 1.48 K/uL Monocytes # (Auto) 1.52 K/uL 1.37 K/uL Eosinophils # (Auto) 0.17 K/uL 0.16 K/uL Basophils # (Auto) 0.03 K/uL 0.03 K/uL RDW Standard Deviation 42.2 fL 42.2 fL RDW Coefficient of Variation 13.6 % 13.6 % Immature Granulocyte % (Auto) 0.5 % 0.7 % Immature Granulocyte # (Auto) 0.09 K/uL 0.07 K/uL Toxic Granulation 1+ D-Dimer 1080 ug/L FEU Sodium Level 137 mmol/L 140 mmol/L Potassium Level 3.6 mmol/L 3.6 mmol/L Chloride Level 100 mmol/L 106 mmol/L Carbon Dioxide Level 28 mmol/L 25 mmol/L Anion Gap 9.0 mmol/L 9.0 mmol/L Blood Urea Nitrogen 13 mg/dl 8 mg/dl Creatinine 0.65 mg/dl 0.53 mg/dl Est Creatinine Clear Calc Drug Dose 135.3 ml/min 165.7 ml/min Estimated GFR () > 150.0 > 150.0 Estimated GFR (Non- 129.6 141.0 BUN/Creatinine Ratio 20.6 15.8 Random Glucose 88 mg/dl 87 mg/dl Calcium Level 8.2 mg/dl 7.5 mg/dl Magnesium Level 1.6 mg/dl 2.2 mg/dl Total Bilirubin 0.6 mg/dl Direct Bilirubin 0.3 mg/dl Aspartate Amino Transf (AST/SGOT) 56 U/L Alanine Aminotransferase (ALT/SGPT) 35 U/L Alkaline Phosphatase 148 U/L Total Creatine Kinase 639 U/L Creatine Kinase MB 2.5 ng/ml Creatine Kinase MB Ratio 0.4 Troponin I < 0.015 ng/ml Total Protein 6.4 gm/dl Albumin 2.0 gm/dl Lipase 130 U/L Influenza Type A Antigen Neg for Influ A Influenza Type B Antigen Neg for Influ B Urine Color DK YELLOW Urine Appearance CLEAR Urine pH 5.5 Urine Specific [place] 1.041 Urine Protein NEG Urine Glucose (UA) NEG Urine Ketones TRACE Urine Occult Blood NEG Urine Nitrite NEG Urine Bilirubin NEG Urine Urobilinogen POS Urine Leukocyte Esterase SMALL Urine WBC (Auto) 5-10 /hpf Urine RBC (Auto) 0-4 /hpf Urine Hyaline Casts (Auto) 5-10 /lpf Urine Epithelial Cells (Auto) >30 /lpf Urine Bacteria (Auto) NEG Urine Renal Epithelial Cells /lpf Urine Mucus PRESENT Prothrombin Time 15.5 SECONDS Prothromb Time International Ratio 1.4 Test 07/25/16 10:55 07/25/16 17:20 White Blood Count 10.08 K/uL Red Blood Count 3.78 M/uL Hemoglobin 10.9 g/dL Hematocrit 32.6 % Mean Corpuscular Volume 86.2 fL Mean Corpuscular Hemoglobin 28.8 pg Mean Corpuscular Hemoglobin Concent 33.4 g/dl Platelet Count 323 K/uL Mean Platelet Volume 9.3 fL Neutrophils (%) (Auto) 76.8 % Lymphocytes (%) (Auto) 10.1 % Monocytes (%) (Auto) 11.0 % Eosinophils (%) (Auto) 1.0 % Basophils (%) (Auto) 0.2 % Neutrophils # (Auto) 7.74 K/uL Lymphocytes # (Auto) 1.02 K/uL Monocytes # (Auto) 1.11 K/uL Eosinophils # (Auto) 0.10 K/uL Basophils # (Auto) 0.02 K/uL RDW Standard Deviation 43.2 fL RDW Coefficient of Variation 13.7 % Immature Granulocyte % (Auto) 0.9 % Immature Granulocyte # (Auto) 0.09 K/uL Prothrombin Time 14.9 SECONDS Prothromb Time International Ratio 1.4 Activated Partial Thromboplast Time 31.7 SECONDS 40.2 SECONDS Partial Thromboplastin Ratio 1.2 1.5 Patient Name: REILLY SKAGGS Unit Number: [id number] Dictated: 07/25/16706 Transcribed: 07/25/16706 [employer] Printed Date/Time: [~ rep prt dt]/[~ rep prt tm] [~ rep ct labl] - [~ rep ct ivnm] [facility] [place] [address] Dictated: 07/25/16706 Transcribed: 07/25/16706 [employer] Printed Date/Time: [~ rep prt dt]/[~ rep prt tm] [~ rep ct labl] - [~ rep ct ivnm] CHEST CTA for PULMONARY ARTERIES CT DOSE: 304.41 mGy.cm HISTORY: Elevated d-dimer. Cough. TECHNIQUE: Multiaxial CT images of the chest were performed following the intravenous administration of contrast to evaluate the pulmonary arteries. Maximal intensity projection images were also obtained. COMPARISON STUDY: Chest 07/24/2016. FINDINGS: Normal caliber thoracic aorta with no evidence for dissection. Small pericardial effusion. Mild thickening at the gastroesophageal junction. No pleural effusions. There are few scattered filling defects seen within the bilateral lower lobe subsegmental pulmonary arteries and the left lower lobe segmental pulmonary arteries consistent with pulmonary embolus. The main pulmonary arteries are patent. The visualized liver, spleen, and adrenal glands are unremarkable. Mild right hilar lymphadenopathy. No significant mediastinal or left hilar lymphadenopathy. The central airways are patent. No pneumothorax. A few tiny scattered patchy ground glass densities within the left mid to lower lung zone. The large right upper lobe cavitary lesion is again noted. This contains a fluid level. This measures 10 cm in size. This demonstrates a slightly thickened and irregular wall. Multiple additional scattered patchy groundglass airspace opacities within the right lung. There are also a few nodular densities within the right upper lobe with the largest on image 176 measuring 1 cm. These are consistent with small satellite nodules. IMPRESSION: 1. A few segmental/subsegmental pulmonary emboli within the bilateral lower lobes. 2. A 10 cm cavitary lesion within the right upper lobe with an air-fluid level and scattered patchy groundglass airspace opacities within the lungs, right greater than left. There are also a few satellite nodules within the right upper lobe as described above. This most likely represents an infectious process such as tuberculosis. A neoplastic process is considered less likely given the patient's age but not entirely excluded. Recommend follow-up to complete resolution. 3. Small pericardial effusion. 4. Mild right hilar lymphadenopathy. This may be reactive. 5. Mild thickening at the gastroesophageal junction. Electronically signed by: Emmanuel Vega M.D. 07/25/2016 7:17 AM Dictated Date/Time: 07/25/2016 7:07 AM The status of this report is Signed. Draft = Not yet reviewed or approved by Radiologist. Signed = Reviewed and approved by Radiologist. <AttendingPhy>Danielito Acosta MD</AttendingPhy> <FamilyPhy>Mani Chao M.D.</FamilyPhy> <PrimaryPhy>Mani Chao M.D.</PrimaryPhy> <UnitNumber >[id number]</UnitNumber> <VisitNumber>[id number]</VisitNumber> <PatientName> REILLY SKAGGS</PatientName> <DateOfBirth>1985</DateOfBirth> <Location> C[facility]</Location> <ServiceDate>07/24/16</ServiceDate> <MNE>ESINDI</MNE> < OrderingPhy>Rayo Chun DO</OrderingPhy> <OrderingPhyMNE>f rep ord dr bryant</ OrderingPhyMNE> <DictatingPhyMNE>f rep dict dr bryant</DictatingPhyMNE> <CCListMNE> f rep ct mne</CCListMNE> <AdmittingPhyMNE>f pt admit dr bryant</AdmittingPhyMNE> < AttendingPhyMNE>f pt attend dr bryant</AttendingPhyMNE> <ConsultingPhyMNE>f pt consult dr bryant</ConsultingPhyMNE> <FamilyPhyMNE>f pt fam dr bryant</FamilyPhyMNE> <OtherPhyMNE>f pt other dr bryant</OtherPhyMNE> < PrimaryPhyMNE>f pt prim care dr bryant</PrimaryPhyMNE> <ReferringPhyMNE>f pt referring dr bryant</ReferringPhyMNE> Assessment & Plan right upper lobe cavitary lesion in patient on immunosuppressive therapy for multiple sclerosis. Extensive differential diagnosis including bacterial infections such as Staph, Pseudomonas, Klebsiella, potential aspiration pneumonia, tuberculosis, fungal infection including Aspergillus and endemic fungi, and Nocardia. Pending cultures and sensitivities, current combination of vancomycin and Zosyn appropriate. Would continue patient on isolation for now. Have ordered additional fungal serology some and antigens. Will follow.
[2016-07-25] MEDS: VANCOMYCIN INJ 900 MG in SODIUM CHLORIDE 0.9% 250ML 250 ML IV SCH (18:57)
[2016-07-25 23:50] VITALS: BP 91/51; PULSE 85; TEMP 36.9; O2SAT 92
[2016-07-26] MEDS: VANCOMYCIN INJ 900 MG in SODIUM CHLORIDE 0.9% 250ML 250 ML IV SCH ×2 (02:12→10:37)
[2016-07-26] MEDS: SODIUM CHLORIDE 0.9% 1000ML 1,000 ML IV SCH ×3 (05:17→23:35)
--- NOTE | 2016-07-26 07:12 | PROGRESS NOTE ---
DATE: 07/25/2016 I just received a notification of consult on Yves and made a brief visit to his room. He is a 31-year-old man with known MS, followed by Ema Thacker at [facility] in [place] and apparently has never seen either Dr. Donald or myself or Dr. Menon. He is on Aubagio and has been on it for 2 years. He now presents with cough and an apparent cavitary lesion and there is a question of whether he has been immunocompromised significantly by the Aubagio but as yet as I understand there is no official diagnosis on the chart, although tuberculosis is in the running. At this time, we are going to check with Ema Thacker regarding what studies have been done in the past and I concur with probably holding the Aubagio at present until the workup is complete and making a decision about continuing long-term after we know the official diagnosis. Shannan Alvarez will be by to see him tomorrow as will I after she looks him over, but for now, the decision regarding Aubagio long-term is on the back burner. MTDJacob
[2016-07-26] MEDS: MULTIVITAMIN TAB PO SCH (07:55)
[2016-07-26] MEDS: DOCUSATE SODIUM 100 MG CAP PO SCH ×2 (07:55→20:11)
[2016-07-26] MEDS: PIPERACILL/TAZOBAC IV 4.5 GM in DEXTROSE 5% 100ML IV SCH ×3 (07:55→23:36)
[2016-07-26] MEDS: OXYBUTYNIN CHLORIDE 5 MG TABCR PO SCH ×2 (07:55→20:12)
[2016-07-26] MEDS: AMANTADINE HCL 100 MG CAP PO SCH ×2 (07:56→20:12)
[2016-07-26] MEDS: SENNA 8.6 MG TAB PO SCH (07:56)
[2016-07-26] MEDS: BuPROPion SR 100 MG TABCR PO SCH ×2 (07:56→17:09)
[2016-07-26] MEDS: CHOLECALCIFEROL 1000 INTER.UNIT TAB PO SCH (07:56)
[2016-07-26] MEDS: GUAIFENESIN 600 MG TABCR PO SCH ×2 (07:57→20:13)
[2016-07-26 08:01] LABS: BASO % 0.3 %; BASO ABS # 0.02 K/uL (0-0.2); HEMATOCRIT 26.9 % (42-52); IG% 0.7 %; LYMPH % 15.7 %; LYMPH ABS # 1.09 K/uL (1.2-3.4); MEAN CELL VOLUME 86.8 fL (80-100); MEAN CORPUSCULAR HEMOGLOBIN 28.7 pg (25-34); MEAN CORPUSCULAR HGB CONC 33.1 g/dl (32-36); MEAN PLATELET VOLUME 9.4 fL (7.4-10.4); MONO % 11.3 %; PLATELET COUNT 269 K/uL (130-400); WHITE BLOOD COUNT 6.93 K/uL (4.8-10.8)
[2016-07-26] MEDS: BOOST PLUS VANILLA PO SCH ×6 (08:04→17:09)
[2016-07-26 08:15] LABS: INR 1.3 (0.9-1.1); PARTIAL THROMBOPLASTIN RATIO 1.9
[2016-07-26] MEDS: HEPARIN 25,000 UNIT/500ML D5W 500 ML IV PRN (08:15)
[2016-07-26 08:20] LABS: COMPLETE YES
[2016-07-26 08:25] VITALS: BP 102/64; PULSE 62; TEMP 36.7; O2SAT 96
[2016-07-26 08:32] LABS: FERRITIN 627.3 ng/ml (8.0-388.0)
[2016-07-26] MEDS ORDERED: VANCOMYCIN TROUGH ONE (09:30)
[2016-07-26 09:46] LABS: BLOOD UREA NITROGEN 5 mg/dl (7-18); BUN/CREATININE RATIO 9.6 (10-20); CALCIUM 7.7 mg/dl (8.5-10.1); CARBON DIOXIDE 26 mmol/L (21-32); CHLORIDE 111 mmol/L (98-107); CREATININE 0.54 mg/dl (0.60-1.40); GLUCOSE 80 mg/dl (70-99); POTASSIUM 3.6 mmol/L (3.5-5.1); SODIUM 145 mmol/L (136-145)
--- NOTE | 2016-07-26 11:14 | Pulmonology Progress Note ---
Pulmonary Progress Note Date of Service Jul 26, 2016. Attending Dr. Hayder Waddell Subjective Patient still fatigued and notes mucous obstruction/difficulty clearing but little coughing and no notable fevers or chills at this time. He does note mild increase in his pulmonary functioning with the mild decrease in his dyspnea on exertion Objective Severely cachectic male able to complete full sentences while lying in bed no signs of increased respiratory/work of breathing. Vital signs: Reviewed and stable RESP: Decreased breath sounds minimal rhonchi appreciated right hemithorax posterior with increased rhonchi apical anterior the right hemithorax Cardiac: S1-S2 no notable murmurs rubs or gallops. Extremities: No signs of septic emboli ENT: Oropharynx within normal limits Influenza A/influenza B: Negative QuantiFERON Gold, pending Expectorated sputum (07/25/16) staph aureus/sensitivities pending AFB: AFB stain negative/cultures pending Assessment & Plan 1) pulmonary: Patient has a large necrotizing lesion of the right upper lobe with cavity wall at almost 8 mm as well as multiple nodules in the right lower, diffuse tree-in-bud and groundglass nodules diffusely along the right hemithorax. Highly suggestive of infectious etiology. Currently being treated with vancomycin/Zosyn. Agree with these initial interventions as well as isolation for ruling out TB. At this time we'll send off for serum fungal evaluation as well as expectorated sputum for CHARLI stain. Data Medications: Current Inpatient Medications Medications (Trade) Dose Ordered Sig/Camilo Route Start Time Stop Time Status Last Admin Dose Admin Acetaminophen (Tylenol Tab) 650 mg Q4H PRN PO 07/24/16 21:45 08/23/16 21:44 07/25/16 20:51 650 MG Al Hydrox/Mg Hydrox/Simethicone (Maalox Max Susp) 15 ml Q4H PRN PO 07/24/16 21:45 08/23/16 21:44 Magnesium Hydroxide (Milk Of Magnesia Susp) 30 ml Q6H PRN PO 07/24/16 21:45 08/23/16 21:44 Polyethylene (Miralax Powder Packet) 17 gm DAILY PRN PO 07/24/16 22:00 08/23/16 21:59 Ondansetron HCl (Zofran Inj) 4 mg Q6H PRN IV 07/24/16 21:45 08/23/16 21:44 Amantadine HCl (Symmetrel Cap) 100 mg BID PO 07/25/16 08:00 08/24/16 08:59 07/26/16 07:56 100 MG Bupropion HCl (Wellbutrin-Sr Tab) 100 mg DAILY@1500 PO 07/25/16 15:00 08/24/16 14:59 07/25/16 17:34 100 MG Bupropion HCl (Wellbutrin-Sr Tab) 100 mg QAM PO 07/25/16 08:00 08/24/16 08:59 07/26/16 07:56 100 MG Meclizine HCl (Antivert Tab) 25 mg TID PRN PO 07/24/16 22:30 08/23/16 22:29 Multivitamins (Multivitamin Tab) 1 tab DAILY PO 07/25/16 08:00 08/24/16 08:59 07/26/16 07:55 1 TAB Trazodone HCl (Desyrel Tab) 150 mg HS PO 07/25/16 21:00 08/24/16 20:59 07/25/16 20:34 150 MG Cholecalciferol (Vitamin D Tab) 5,000 inter.unit DAILY PO 07/25/16 08:00 08/24/16 08:59 07/26/16 07:56 5,000 INTER.UNIT Miscellaneous Information (Order Awaiting Action) 1 ea QS N/A 07/25/16 08:00 08/24/16 07:59 Docusate Sodium (coLACE CAP) 100 mg BID PO 07/25/16 08:00 08/24/16 08:59 07/26/16 07:55 100 MG Senna (Senokot Tab) 8.6 mg QAM PO 07/25/16 08:00 08/24/16 08:59 07/26/16 07:56 8.6 MG Bisacodyl 5 mg 5 mg DAILY PRN PO 07/24/16 22:30 08/23/16 22:29 Sodium Chloride (Nss 1000ml) 1,000 ml @ 100 mls/hr Q10H IV 07/24/16 22:45 08/23/16 22:44 07/26/16 05:17 100 MLS/HR Guaifenesin (Mucinex Contr Rel Tab) 600 mg Q12H PO 07/25/16 09:00 08/24/16 08:59 07/26/16 07:57 600 MG Phenol (Chloraseptic 1.4% [place]) 1 sprays BID PRN MT 07/24/16 22:45 08/23/16 22:44 07/25/16 18:43 1 SPRAYS Ioversol (Optiray 320) 100 ml UD PRN IV 07/24/16 22:45 07/28/16 22:44 Oxybutynin Chloride (Ditropan-Xl Tab) 10 mg BID PO 07/25/16 08:00 08/24/16 07:59 07/26/16 07:55 10 MG Piperacillin Sod/ Tazobactam Sod 1 ea 1 ea UD PRN N/A 07/25/16 10:07 08/24/16 10:06 Piperacillin Sod/ Tazobactam Sod/ Dextrose (Zosyn Iv/D5 100ml) 120 ml @ 30 mls/hr Q8H IV 07/25/16 16:00 08/01/16 15:59 07/26/16 07:55 30 MLS/HR Vancomycin HCl 1 ea 1 ea UD PRN N/A 07/25/16 10:15 08/24/16 10:14 Vancomycin HCl 900 mg/Sodium Chloride 268 ml @ 125 mls/hr Q8H IV 07/25/16 18:00 08/01/16 17:59 07/26/16 10:37 125 MLS/HR Heparin Sodium/ Dextrose (Heparin 25,000 Unit/500ml D5W) 500 ml @ 26 mls/hr [id number] PRN IV 07/25/16 10:45 08/24/16 10:44 07/26/16 08:15 26 MLS/HR Enteral Nutritional Formula (Boost Plus Vanilla) 1 can TIDM PO 07/25/16 17:00 08/24/16 16:59 07/26/16 08:04 1 CAN I & O: 24-Hour Column 07/26/16 08:00 Intake Total 3939 ml Output Total 2100 ml Balance 1839 ml Vital Signs: Date Time Temp Pulse Resp B/P Pulse Ox O2 Delivery O2 Flow Rate FiO2 07/26/16 10:12 Room Air 07/26/16 08:25 36.7 62 16 102/64 96 Room Air 07/26/16 00:00 Room Air 07/25/16 23:50 36.9 85 20 91/51 92 Room Air 07/25/16 16:30 Room Air 07/25/16 15:01 36.9 101 16 90/48 91 Room Air Laboratory Results: Last 24 Hours Test 07/25/16 17:20 07/25/16 20:53 07/26/16 00:33 07/26/16 07:39 Activated Partial Thromboplast Time 40.2 SECONDS 52.3 SECONDS 48.4 SECONDS Partial Thromboplastin Ratio 1.5 2.0 1.9 White Blood Count 6.93 K/uL Red Blood Count 3.10 M/uL Hemoglobin 8.9 g/dL Hematocrit 26.9 % Mean Corpuscular Volume 86.8 fL Mean Corpuscular Hemoglobin 28.7 pg Mean Corpuscular Hemoglobin Concent 33.1 g/dl Platelet Count 269 K/uL Mean Platelet Volume 9.4 fL Neutrophils (%) (Auto) 70.0 % Lymphocytes (%) (Auto) 15.7 % Monocytes (%) (Auto) 11.3 % Eosinophils (%) (Auto) 2.0 % Basophils (%) (Auto) 0.3 % Neutrophils # (Auto) 4.85 K/uL Lymphocytes # (Auto) 1.09 K/uL Monocytes # (Auto) 0.78 K/uL Eosinophils # (Auto) 0.14 K/uL Basophils # (Auto) 0.02 K/uL RDW Standard Deviation 44.4 fL RDW Coefficient of Variation 14.0 % Immature Granulocyte % (Auto) 0.7 % Immature Granulocyte # (Auto) 0.05 K/uL Red Blood Cell Morphology Unremarkable Prothrombin Time 14.0 SECONDS Prothromb Time International Ratio 1.3 Sodium Level 145 mmol/L Potassium Level 3.6 mmol/L Chloride Level 111 mmol/L Carbon Dioxide Level 26 mmol/L Anion Gap 8.0 mmol/L Blood Urea Nitrogen 5 mg/dl Creatinine 0.54 mg/dl Est Creatinine Clear Calc Drug Dose 162.6 ml/min Estimated GFR () > 150.0 Estimated GFR (Non- 139.9 BUN/Creatinine Ratio 9.6 Random Glucose 80 mg/dl Calcium Level 7.7 mg/dl Iron Level 15 mcg/dl Total Iron Binding Capacity 82 mcg/dl Transferrin 68 mg/dl Transferrin % Saturation 16 % Ferritin 627.3 ng/ml Vitamin B12 Level 1190 pg/mL Folate 8.19 ng/mL Test 07/26/16 09:14 Vancomycin Level Trough 14.1 mcg/ml
--- NOTE | 2016-07-26 12:34 | Pharmacy Progress Note ---
Pharmacy Antibiotic Prog Note Date of Service: Jul 26, 2016. Subjective: The patient is currently receiving vancomycin 900mg IV q8h and pip/tazo 4.5g IV q8h. The patient is currently on day #3 of vancomycin IV and pip/tazo IV therapies. Objective: Height (Feet): 5 Height (Inches): 11.00 Weight (Kilograms): 58.000 Levels: Item Value Date Time Vancomycin Level Trough 14.1 mcg/ml 07/26/16 0914 Lab Results (24hrs): Laboratory Tests Test 07/26/16 07:39 BUN/Creatinine Ratio 9.6 Blood Urea Nitrogen 5 mg/dl Creatinine 0.54 mg/dl White Blood Count 6.93 K/uL Red Blood Count 3.10 M/uL Hemoglobin 8.9 g/dL Hematocrit 26.9 % Mean Corpuscular Volume 86.8 fL Mean Corpuscular Hemoglobin 28.7 pg Mean Corpuscular Hemoglobin Concent 33.1 g/dl Platelet Count 269 K/uL Mean Platelet Volume 9.4 fL Neutrophils (%) (Auto) 70.0 % Lymphocytes (%) (Auto) 15.7 % Monocytes (%) (Auto) 11.3 % Eosinophils (%) (Auto) 2.0 % Basophils (%) (Auto) 0.3 % Neutrophils # (Auto) 4.85 K/uL Lymphocytes # (Auto) 1.09 K/uL Monocytes # (Auto) 0.78 K/uL Eosinophils # (Auto) 0.14 K/uL Basophils # (Auto) 0.02 K/uL Micro Results: Item Value Date Time Blood Culture - Preliminary Resulted 07/24/16 2002 Blood NO GROWTH TO DATE. Blood Culture - Preliminary Resulted 07/24/16 2058 Blood NO GROWTH TO DATE. Gram Stain - Final Complete 07/24/16 2300 Sputum Expectorated Sputum Gram Stain - Final Resulted 07/25/16 0745 Sputum Expectorated Sputum Acid Fast Stain - Final Resulted 07/25/16 0745 Sputum Expectorated Sputum MRSA DNA Surveillance Screen - Final Complete 07/25/16 1500 Nasal Specimen Negative for MRSA by DNA Probe Acid Fast Stain Received 07/25/16 1720 Blood Pending Assessment & Plan: ASSESSMENT: * Patient is a 31 year-old male admitted with a lung abscess/pneumonia. * Pharmacy was consulted to dose the vancomycin IV and pip/tazo IV therapies. * Goal trough for vancomycin is 15-20mcg/ml. * Calculated half-life to be 5hrs and Vd to be 0.86L/kg. * ID was consulted on the patient. * Sputum grew Staph aureus with sensitivities to follow despite MRSA nasal swab being negative. BCsx2 show NGTD, PLAN: VANCOMYCIN: * Patient is on 900mg IV q8hr (~16mg/kg). * Steady-state trough came back at 14.1mcg/ml, which is slightly subtherapeutic. * Will slightly increase dose to 1000mg IV q8hr (~17mg/kg). * Will get a trough level on 07/27 @0930 before the 3rd maintenance dose. * Once the level comes back, will adjust the dosing regimen accordingly. PIP/TAZO: * Will continue the patient on the maintenance dosing of 4.5g IV q8h of pip/ tazo due to nature of infection and because CrCl is >20ml/min. Pharmacy will continue to follow and will adjust dose/frequency as necessary. Thank you
--- NOTE | 2016-07-26 13:18 | Clinical Documentation Query ---
QUERY 1 OF 3 CLINICAL DOCUMENTATION QUERY , In your clinical opinion is this patient being managed for: ( ) Pneumonia due to Staphylococcus aureus ( ) Other explanation of clinical findings (Please Explain) ( ) Unable to determine (Please Define) ( x ) Need to Discuss ( ) Not Agree The medical record reflects the following clinical findings, treatment, and risk factors. Clinical Indicators: 31 yo male presenting with cough and yellow sputum production associated with chills, dyspnea and weakness. Prelim Sputum cx with many S aureus. Final culture is still pending. Documented as having a cavitary lung lesion. Treatment: IV zosyn, IV vancomycin, IV fluids, ID consult, Risk Factors: immunocompromised QUERY 2 OF 3 In your clinical opinion is this patient being managed for: ( x ) Severe protein-calorie malnutrition; chronic ( ) Other explanation of clinical findings (Please Explain) ( ) Unable to determine (Please Define) ( ) Need to Discuss ( ) Not Agree The medical record reflects the following clinical findings, treatment, and risk factors. Clinical Indicators: Dietary consult indicates pt has had a 30 lb wt loss (19%). Described as being cachectic, thin, with temporal wasting and also a documented stage II pressure ulcer. Treatment: dietary consult, boost plus TID, daily wts, I/O, daily MVI Risk Factors: MS Energy intake: <75% of estimated energy requirement for > 1 month Wt loss: >5% in 1 month, > 7.5% in 3 months, >10% in 6 months, >20% in 1 year Body fat: severe loss of SQ fat from the orbits, triceps or fat overlying the ribs Muscle mass: severe muscle wasting at the temples, clavicles, shoulders, interosseous spaces, scapula, thigh, calf Fluid accumulation: severe localized or generalized edema of the extremities, vulva, scrotum-wt loss may be masked by edema Otr Driver strength: measurably decreased per the devices standards QUERY 3 OF 3 In your clinical opinion is this patient being managed for: ( x ) L hip Pressure ulcer, stage 2, POA ( ) Other explanation of clinical findings (Please Explain) ( ) Unable to determine (Please Define) ( ) Need to Discuss ( ) Not Agree The medical record reflects the following clinical findings, treatment, and risk factors. Clinical Indicators: WOCN consult noted for "wound". Physician progress notes do not reflect that pt has a wound. Treatment: WOCN consult aquacel AG and optifoam dressing QOD Risk Factors: MS, increased weakness with significant decrease in activity level Please clarify and document your clinical opinion in the progress notes and discharge summary. Terms such as "probable", "suspected", "likely", "questionable", "possible", or "still to be ruled out" are acceptable. IF IN AGREEMENT, YOU MUST DOCUMENT ABOVE DIAGNOSTIC STATEMENT IN DAILY PROGRESS NOTES AND DISCHARGE SUMMARY. This document is not part of the patient's record. Thank You, Cait Agrawal, RN [phone]
--- NOTE | 2016-07-26 14:40 | Neurology Consultation ---
Neurology Consultation Date of Consultation: Jul 26, 2016. Attending Physician: Danielito Acosta MD Primary Care Physician: Mani Chao M.D. Reason for Consultation: MS with pulmonary lesion History of Present Illness Yves is a 31 year old male with PMH of MS, neurogenic bladder requiring intermittent self catheterizations, who has been treated by PCP for productive cough for the past few days, weakness and a significant weight loss in the past year. He has been having upper respiratory problems for a few weeks now and has seen his PCP for this. He was given Augmentin for 10 days and he had finished the course of antibiotics, but the cough and sputum production persisted and worsened. He denies any travel out of the country or sick exposure. He states he has had 2 episodes of exacerbation of his MS in the past. The first one left him with weakness in his legs and the second one with vision changes and balance issues. At baseline he walks with a walker. He sees neurology in [place] for his MS and was on Copaxone previously and in the last 2 years has been taking Aubagio. denies fevers, night sweats, headache, decreased vision, falls, abdominal pain, Lhermitte sign or pain in neck with movement . +weakness , cough, sputum production. Past Medical/Surgical History Medical Problems: (1) Cachexia Status: Acute (2) Cavitary pneumonia Status: Acute Social History Smokeless Tobacco Use: No Housing Status: lives with family Occupation Status: unemployed Allergies Coded Allergies: Sulfanilamide (Verified Allergy, Severe, Neck pain; hives, 07/24/16) Clindamycin (Verified Allergy, Mild, Rash, 07/24/16) Current Inpatient Medications Current Inpatient Medications Medications (Trade) Dose Ordered Sig/Camilo Route Start Time Stop Time Status Last Admin Dose Admin Acetaminophen (Tylenol Tab) 650 mg Q4H PRN PO 07/24/16 21:45 08/23/16 21:44 07/25/16 20:51 650 MG Al Hydrox/Mg Hydrox/Simethicone (Maalox Max Susp) 15 ml Q4H PRN PO 07/24/16 21:45 08/23/16 21:44 Magnesium Hydroxide (Milk Of Magnesia Susp) 30 ml Q6H PRN PO 07/24/16 21:45 08/23/16 21:44 Polyethylene (Miralax Powder Packet) 17 gm DAILY PRN PO 07/24/16 22:00 08/23/16 21:59 Ondansetron HCl (Zofran Inj) 4 mg Q6H PRN IV 07/24/16 21:45 08/23/16 21:44 Amantadine HCl (Symmetrel Cap) 100 mg BID PO 07/25/16 08:00 08/24/16 08:59 07/26/16 07:56 100 MG Bupropion HCl (Wellbutrin-Sr Tab) 100 mg DAILY@1500 PO 07/25/16 15:00 08/24/16 14:59 07/25/16 17:34 100 MG Bupropion HCl (Wellbutrin-Sr Tab) 100 mg QAM PO 07/25/16 08:00 08/24/16 08:59 07/26/16 07:56 100 MG Meclizine HCl (Antivert Tab) 25 mg TID PRN PO 07/24/16 22:30 08/23/16 22:29 Multivitamins (Multivitamin Tab) 1 tab DAILY PO 07/25/16 08:00 08/24/16 08:59 07/26/16 07:55 1 TAB Trazodone HCl (Desyrel Tab) 150 mg HS PO 07/25/16 21:00 08/24/16 20:59 07/25/16 20:34 150 MG Cholecalciferol (Vitamin D Tab) 5,000 inter.unit DAILY PO 07/25/16 08:00 08/24/16 08:59 07/26/16 07:56 5,000 INTER.UNIT Miscellaneous Information (Order Awaiting Action) 1 ea QS N/A 07/25/16 08:00 08/24/16 07:59 Docusate Sodium (coLACE CAP) 100 mg BID PO 07/25/16 08:00 08/24/16 08:59 07/26/16 07:55 100 MG Senna (Senokot Tab) 8.6 mg QAM PO 07/25/16 08:00 08/24/16 08:59 07/26/16 07:56 8.6 MG Bisacodyl 5 mg 5 mg DAILY PRN PO 07/24/16 22:30 08/23/16 22:29 Sodium Chloride (Nss 1000ml) 1,000 ml @ 100 mls/hr Q10H IV 07/24/16 22:45 08/23/16 22:44 07/26/16 05:17 100 MLS/HR Guaifenesin (Mucinex Contr Rel Tab) 600 mg Q12H PO 07/25/16 09:00 08/24/16 08:59 07/26/16 07:57 600 MG Phenol (Chloraseptic 1.4% Notrees) 1 sprays BID PRN MT 07/24/16 22:45 08/23/16 22:44 07/25/16 18:43 1 SPRAYS Ioversol (Optiray 320) 100 ml UD PRN IV 07/24/16 22:45 07/28/16 22:44 Oxybutynin Chloride (Ditropan-Xl Tab) 10 mg BID PO 07/25/16 08:00 08/24/16 07:59 07/26/16 07:55 10 MG Piperacillin Sod/ Tazobactam Sod 1 ea 1 ea UD PRN N/A 07/25/16 10:07 08/24/16 10:06 Piperacillin Sod/ Tazobactam Sod/ Dextrose (Zosyn Iv/D5 100ml) 120 ml @ 30 mls/hr Q8H IV 07/25/16 16:00 08/01/16 15:59 07/26/16 07:55 30 MLS/HR Vancomycin HCl 1 ea 1 ea UD PRN N/A 07/25/16 10:15 08/24/16 10:14 Heparin Sodium/ Dextrose (Heparin 25,000 Unit/500ml D5W) 500 ml @ 26 mls/hr [id number] PRN IV 07/25/16 10:45 08/24/16 10:44 07/26/16 08:15 26 MLS/HR Enteral Nutritional Formula 1 can 1 can TIDM PO 07/25/16 17:00 08/24/16 16:59 07/26/16 08:04 1 CAN Vancomycin HCl/ Sodium Chloride (Vancomycin Inj/ Nss 250ml) 270 ml @ 125 mls/hr Q8H IV 07/26/16 18:00 08/01/16 17:59 Physical Exam Vital Signs (Past 24 Hrs): Date Time Temp Pulse Resp B/P Pulse Ox O2 Delivery O2 Flow Rate FiO2 07/26/16 10:12 Room Air 07/26/16 08:25 36.7 62 16 102/64 96 Room Air 07/26/16 00:00 Room Air 07/25/16 23:50 36.9 85 20 91/51 92 Room Air 07/25/16 16:30 Room Air 07/25/16 15:01 36.9 101 16 90/48 91 Room Air Physical Exam: Constitutional: appearance pale frail Ears, Nose, Mouth and Throat: mucous membranes moist, no injection and skin normal, eyes normal Cardiovascular: normal S-1 and S-2 and regular rate and rhythm Respiratory: decreased BS right UL Musculoskeletal: no peripheral edema and good distal pulses Skin: no stigmata of neurocutaneous disease noted and normal and intact Eyes: extraocular muscles intact (EOMI) and pupils equal, round and reactive to light (PERRL) unable to visualize optic disc NEUROLOGIC EXAMINATION: Mental status: Alert and interactive Oriented to person Speech fluent with no evidence of aphasia, dysarthric Cranial Nerves smile and eye brow raise symmetric, tongue midline Reflexes: LLE clonus non sustained Sensory: light touch Gait/Stance: Posture normal. 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93 K/uL (4.8-10.8) Red Blood Count 3.10 M/uL (4.7-6.1) Hemoglobin 8.9 g/dL (14.0-18.0) Hematocrit 26.9 % (42-52) Mean Corpuscular Volume 86.8 fL (80-100) Mean Corpuscular Hemoglobin 28.7 pg (25-34) Mean Corpuscular Hemoglobin Concent 33.1 g/dl (32-36) Platelet Count 269 K/uL (130-400) Mean Platelet Volume 9.4 fL (7.4-10.4) Neutrophils (%) (Auto) 70.0 % Lymphocytes (%) (Auto) 15.7 % Monocytes (%) (Auto) 11.3 % Eosinophils (%) (Auto) 2.0 % Basophils (%) (Auto) 0.3 % Neutrophils # (Auto) 4.85 K/uL (1.4-6.5) Lymphocytes # (Auto) 1.09 K/uL (1.2-3.4) Monocytes # (Auto) 0.78 K/uL (0.11-0.59) Eosinophils # (Auto) 0.14 K/uL (0-0.5) Basophils # (Auto) 0.02 K/uL (0-0.2) RDW Standard Deviation 44.4 fL (36.4-46.3) RDW Coefficient of Variation 14.0 % (11.5-14.5) Immature Granulocyte % (Auto) 0.7 % Immature Granulocyte # (Auto) 0.05 K/uL (0.00-0.02) Red Blood Cell Morphology Unremarkable Prothrombin Time 14.0 SECONDS (9.0-12.0) Prothromb Time International Ratio 1.3 (0.9-1.1) Activated Partial Thromboplast Time 48.4 SECONDS (21.0-31.0) Partial Thromboplastin Ratio 1.9 Anion Gap 8.0 mmol/L (3-11) Est Creatinine Clear Calc Drug Dose 162.6 ml/min Estimated GFR () > 150.0 Estimated GFR (Non- 139.9 BUN/Creatinine Ratio 9.6 (10-20) Calcium Level 7.7 mg/dl (8.5-10.1) Iron Level 15 mcg/dl (35-175) Total Iron Binding Capacity 82 mcg/dl (250-450) Transferrin 68 mg/dl (200-360) Transferrin % Saturation 16 % (20-50) Ferritin 627.3 ng/ml (8.0-388.0) Vitamin B12 Level 1190 pg/mL (211-911) Folate 8.19 ng/mL (>5.38) Vancomycin Level Trough 14.1 mcg/ml (SEE COMMENT) Test 07/26/16 13:50 Date/Time Source Procedure Growth Status 07/25/16 15:00 Nasal MRSA DNA Surveillance Screen - Final Specimen Negative for MRSA by DNA Probe Complete Imaging CTA thoracic chest-A few segmental/subsegmental pulmonary emboli within the bilateral lower lobes. A 10 cm cavitary lesion within the right upper lobe with an air-fluid level and scattered patchy groundglass airspace opacities within the lungs, right greater than left. There are also a few satellite nodules within the right upper lobe as described above. This most likely represents an infectious process such as tuberculosis. A neoplastic process is considered less likely given the patient's age but not entirely excluded. Recommend follow-up to complete resolution. Small pericardial effusion. Mild right hilar lymphadenopathy. This may be reactive. Mild thickening at the gastroesophageal junction. Impression 31 year old with MS and cavernous lung lesion Plan 1. Aubagio -discussed with neurology in [place] that follow Yves. He is to stop for now and will restart at a later date. no need to reverse 2. pulmonary for evaluation of lesion 3. ID for treatment of lesion 4. nutritionally depleted and significant weight loss - nutrition for recommendations 5. continue to straight cath for urinary retention issues-chronic 6. call with questions concerns will be available as needed 7. echo pending read 8. sign off for now I have seen and discussed above patient with Dr Cedric Clark, neurology Agree with the above Patient seen and previously the situation was reviewd with [facility] Neurology/MS [facility] Stop Aubagio for now as the likelihood of its contributing significantly to his immunosuppression is low but not zero and there is no need for an accelerated elimination program here unless the elevation of the LFTs is felt to be secondary to it ( probability very low as he has been on it for over two years and lfts in [facility] were normal ) If cultures etc do show tb then the situation may be different and a cholestyramine. activated charcoal accelerated elimination program may be considered ( see Aubagio web site for details ) We will sign off for now as the ms is clinically stable but feel free to reconsult in the event cultures esther shoe evidenced for tb Cedric Clark MD
[2016-07-26 14:57] VITALS: BP 101/62; PULSE 63; TEMP 36.6; O2SAT 90
[2016-07-26 16:05] VITALS: O2SAT 90
[2016-07-26] MEDS: VANCOMYCIN INJ 1,000 MG in SODIUM CHLORIDE 0.9% 250ML 250 ML IV SCH (17:09)
--- NOTE | 2016-07-26 19:12 | Infectious Disease Progress Nt ---
Progress Note Date of Service Jul 26, 2016. Subjective Pt evaluation today including: conversation w/ patient, physical exam, chart review, lab review, review of studies, conversation w/ behavioral health consultant, review of inpatient medication list cough and sputum production improved. Remains afebrile. Hemodynamically stable. Sputum culture growing Staph aureus. All other cultures negative, AFB smears negative. All Other Systems: Reviewed and Negative Medications Current Inpatient Medications Medications (Trade) Dose Ordered Sig/Camilo Route Start Time Stop Time Status Last Admin Dose Admin Acetaminophen (Tylenol Tab) 650 mg Q4H PRN PO 07/24/16 21:45 08/23/16 21:44 07/25/16 20:51 650 MG Al Hydrox/Mg Hydrox/Simethicone (Maalox Max Susp) 15 ml Q4H PRN PO 07/24/16 21:45 08/23/16 21:44 Magnesium Hydroxide (Milk Of Magnesia Susp) 30 ml Q6H PRN PO 07/24/16 21:45 08/23/16 21:44 Polyethylene (Miralax Powder Packet) 17 gm DAILY PRN PO 07/24/16 22:00 08/23/16 21:59 Ondansetron HCl (Zofran Inj) 4 mg Q6H PRN IV 07/24/16 21:45 08/23/16 21:44 Amantadine HCl (Symmetrel Cap) 100 mg BID PO 07/25/16 08:00 08/24/16 08:59 07/26/16 07:56 100 MG Bupropion HCl (Wellbutrin-Sr Tab) 100 mg DAILY@1500 PO 07/25/16 15:00 08/24/16 14:59 07/26/16 17:09 100 MG Bupropion HCl (Wellbutrin-Sr Tab) 100 mg QAM PO 07/25/16 08:00 08/24/16 08:59 07/26/16 07:56 100 MG Meclizine HCl (Antivert Tab) 25 mg TID PRN PO 07/24/16 22:30 08/23/16 22:29 Multivitamins (Multivitamin Tab) 1 tab DAILY PO 07/25/16 08:00 08/24/16 08:59 07/26/16 07:55 1 TAB Trazodone HCl (Desyrel Tab) 150 mg HS PO 07/25/16 21:00 08/24/16 20:59 07/25/16 20:34 150 MG Cholecalciferol (Vitamin D Tab) 5,000 inter.unit DAILY PO 07/25/16 08:00 08/24/16 08:59 07/26/16 07:56 5,000 INTER.UNIT Miscellaneous Information (Order Awaiting Action) 1 ea QS N/A 07/25/16 08:00 08/24/16 07:59 Docusate Sodium (coLACE CAP) 100 mg BID PO 07/25/16 08:00 08/24/16 08:59 07/26/16 07:55 100 MG Senna (Senokot Tab) 8.6 mg QAM PO 07/25/16 08:00 08/24/16 08:59 07/26/16 07:56 8.6 MG Bisacodyl 5 mg 5 mg DAILY PRN PO 07/24/16 22:30 08/23/16 22:29 Sodium Chloride (Nss 1000ml) 1,000 ml @ 100 mls/hr Q10H IV 07/24/16 22:45 08/23/16 22:44 07/26/16 05:17 100 MLS/HR Guaifenesin (Mucinex Contr Rel Tab) 600 mg Q12H PO 07/25/16 09:00 08/24/16 08:59 07/26/16 07:57 600 MG Phenol (Chloraseptic 1.4% Hecker) 1 sprays BID PRN MT 07/24/16 22:45 08/23/16 22:44 07/25/16 18:43 1 SPRAYS Ioversol (Optiray 320) 100 ml UD PRN IV 07/24/16 22:45 07/28/16 22:44 Oxybutynin Chloride (Ditropan-Xl Tab) 10 mg BID PO 07/25/16 08:00 08/24/16 07:59 07/26/16 07:55 10 MG Piperacillin Sod/ Tazobactam Sod 1 ea 1 ea UD PRN N/A 07/25/16 10:07 08/24/16 10:06 Piperacillin Sod/ Tazobactam Sod/ Dextrose (Zosyn Iv/D5 100ml) 120 ml @ 30 mls/hr Q8H IV 07/25/16 16:00 08/01/16 15:59 07/26/16 17:08 30 MLS/HR Vancomycin HCl 1 ea 1 ea UD PRN N/A 07/25/16 10:15 08/24/16 10:14 Heparin Sodium/ Dextrose (Heparin 25,000 Unit/500ml D5W) 500 ml @ 26 mls/hr [id number] PRN IV 07/25/16 10:45 08/24/16 10:44 07/26/16 08:15 26 MLS/HR Enteral Nutritional Formula 1 can 1 can TIDM PO 07/25/16 17:00 08/24/16 16:59 07/26/16 17:09 1 CAN Vancomycin HCl/ Sodium Chloride (Vancomycin Inj/ Nss 250ml) 270 ml @ 125 mls/hr Q8H IV 07/26/16 18:00 08/01/16 17:59 07/26/16 17:09 125 MLS/HR Objective Vital Signs Date Time Temp Pulse Resp B/P Pulse Ox O2 Delivery O2 Flow Rate FiO2 07/26/16 14:57 36.6 63 16 101/62 90 Room Air 07/26/16 10:12 Room Air 07/26/16 08:25 36.7 62 16 102/64 96 Room Air 07/26/16 00:00 Room Air 07/25/16 23:50 36.9 85 20 91/51 92 Room Air Physical Exam General Appearance: WD/WN, no apparent distress Eyes: normal inspection, EOMI, sclerae normal ENT: normal ENT inspection, pharynx normal Neck: supple, no adenopathy, trachea midline Respiratory/Chest: chest non-tender, no respiratory distress, no accessory muscle use, + rhonchi Cardiovascular: regular rate, rhythm, no gallop, no murmur Abdomen: normal bowel sounds, non tender, soft, no organomegaly Extremities: non-tender, no calf tenderness Neurologic/Psychiatric: alert, oriented x 3 Skin: normal color, warm/dry, no rash Lymphatic: no adenopathy Laboratory Results Last 24 Hours Test 07/25/16 20:53 07/26/16 00:33 07/26/16 07:39 07/26/16 09:14 Activated Partial Thromboplast Time 52.3 SECONDS 48.4 SECONDS Partial Thromboplastin Ratio 2.0 1.9 White Blood Count 6.93 K/uL Red Blood Count 3.10 M/uL Hemoglobin 8.9 g/dL Hematocrit 26.9 % Mean Corpuscular Volume 86.8 fL Mean Corpuscular Hemoglobin 28.7 pg Mean Corpuscular Hemoglobin Concent 33.1 g/dl Platelet Count 269 K/uL Mean Platelet Volume 9.4 fL Neutrophils (%) (Auto) 70.0 % Lymphocytes (%) (Auto) 15.7 % Monocytes (%) (Auto) 11.3 % Eosinophils (%) (Auto) 2.0 % Basophils (%) (Auto) 0.3 % Neutrophils # (Auto) 4.85 K/uL Lymphocytes # (Auto) 1.09 K/uL Monocytes # (Auto) 0.78 K/uL Eosinophils # (Auto) 0.14 K/uL Basophils # (Auto) 0.02 K/uL RDW Standard Deviation 44.4 fL RDW Coefficient of Variation 14.0 % Immature Granulocyte % (Auto) 0.7 % Immature Granulocyte # (Auto) 0.05 K/uL Red Blood Cell Morphology Unremarkable Prothrombin Time 14.0 SECONDS Prothromb Time International Ratio 1.3 Sodium Level 145 mmol/L Potassium Level 3.6 mmol/L Chloride Level 111 mmol/L Carbon Dioxide Level 26 mmol/L Anion Gap 8.0 mmol/L Blood Urea Nitrogen 5 mg/dl Creatinine 0.54 mg/dl Est Creatinine Clear Calc Drug Dose 162.6 ml/min Estimated GFR () > 150.0 Estimated GFR (Non- 139.9 BUN/Creatinine Ratio 9.6 Random Glucose 80 mg/dl Calcium Level 7.7 mg/dl Iron Level 15 mcg/dl Total Iron Binding Capacity 82 mcg/dl Transferrin 68 mg/dl Transferrin % Saturation 16 % Ferritin 627.3 ng/ml Vitamin B12 Level 1190 pg/mL Folate 8.19 ng/mL Vancomycin Level Trough 14.1 mcg/ml Test 07/26/16 12:05 07/26/16 13:50 07/26/16 14:23 Assessment and Plan right upper lobe cavitary lesion in patient on immunosuppressive therapy for multiple sclerosis. Has extensive differential diagnoses as discussed. Sputum with Staph aureus, certainly an important cause of cavitary pneumonia, rufina. associated with viral respiratory infection. Continue present antibiotics pending sensitivities.
[2016-07-26] MEDS: TRAZODONE HCL 50 MG TAB PO SCH (20:11)
--- NOTE | 2016-07-26 21:10 | Progress Note ---
Medicine Progress Note Date & Time of Visit: Jul 26, 2016 at 21:04. Subjective patient seen using laptop comfortable states he feels somewhat better today still with pain on inspiration occasional productive cough no other symptoms Objective Last 8 Hrs Date Time Temp Pulse Resp B/P Pulse Ox O2 Delivery O2 Flow Rate FiO2 07/26/16 16:05 90 Room Air 07/26/16 14:57 36.6 63 16 101/62 90 Room Air Physical Exam: General- oriented x 3, not in distress, cachectic, speaks in sentences with no effort Eyes anicteric Neck- no JVD Lungs- clear breath sounds bilaterally Heart- normal rate, regular rhythm; no murmurs Abdomen- normal bowel sounds, soft, nontender Extremities- no pretibial edema, no calf tenderness; peripheral pulses intact Neuro- alert, oriented x 3; no gross focal deficits Skin- warm & dry Laboratory Results: Last 24 Hours Test 07/26/16 00:33 07/26/16 07:39 07/26/16 09:14 07/26/16 12:05 Activated Partial Thromboplast Time 52.3 SECONDS 48.4 SECONDS Partial Thromboplastin Ratio 2.0 1.9 White Blood Count 6.93 K/uL Red Blood Count 3.10 M/uL Hemoglobin 8.9 g/dL Hematocrit 26.9 % Mean Corpuscular Volume 86.8 fL Mean Corpuscular Hemoglobin 28.7 pg Mean Corpuscular Hemoglobin Concent 33.1 g/dl Platelet Count 269 K/uL Mean Platelet Volume 9.4 fL Neutrophils (%) (Auto) 70.0 % Lymphocytes (%) (Auto) 15.7 % Monocytes (%) (Auto) 11.3 % Eosinophils (%) (Auto) 2.0 % Basophils (%) (Auto) 0.3 % Neutrophils # (Auto) 4.85 K/uL Lymphocytes # (Auto) 1.09 K/uL Monocytes # (Auto) 0.78 K/uL Eosinophils # (Auto) 0.14 K/uL Basophils # (Auto) 0.02 K/uL RDW Standard Deviation 44.4 fL RDW Coefficient of Variation 14.0 % Immature Granulocyte % (Auto) 0.7 % Immature Granulocyte # (Auto) 0.05 K/uL Red Blood Cell Morphology Unremarkable Prothrombin Time 14.0 SECONDS Prothromb Time International Ratio 1.3 Sodium Level 145 mmol/L Potassium Level 3.6 mmol/L Chloride Level 111 mmol/L Carbon Dioxide Level 26 mmol/L Anion Gap 8.0 mmol/L Blood Urea Nitrogen 5 mg/dl Creatinine 0.54 mg/dl Est Creatinine Clear Calc Drug Dose 162.6 ml/min Estimated GFR () > 150.0 Estimated GFR (Non- 139.9 BUN/Creatinine Ratio 9.6 Random Glucose 80 mg/dl Calcium Level 7.7 mg/dl Iron Level 15 mcg/dl Total Iron Binding Capacity 82 mcg/dl Transferrin 68 mg/dl Transferrin % Saturation 16 % Ferritin 627.3 ng/ml Vitamin B12 Level 1190 pg/mL Folate 8.19 ng/mL Vancomycin Level Trough 14.1 mcg/ml Test 07/26/16 13:50 07/26/16 14:23 Assessment & Plan This is a 31 year old male with PMH of MS, neurogenic bladder requiring intermittent self catheterizations - presented here secondary to productive cough CAVITARY LUNG LESION, POSSIBLE LUNG ABSCESS, r/o TB, 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 monitor MULTIPLE SCLEROSIS controlled symptoms with Aubagio, may be causing immunocompromised state Neurology consulted, recommend to hold Aubagio for now Neurogenic Bladder -->patient with hx. of urethral strictures -->intermittently self catheterizes -- continue Andino CACHEXIA likely from underlying infection Nutrition consult DVT ppx heparin FULL CODE Disposition pending lives with family attempted to call patient's father for update but not available Current Inpatient Medications: Current Inpatient Medications Medications (Trade) Dose Ordered Sig/Camilo Route Start Time Stop Time Status Last Admin Dose Admin Acetaminophen (Tylenol Tab) 650 mg Q4H PRN PO 07/24/16 21:45 08/23/16 21:44 07/25/16 20:51 650 MG Al Hydrox/Mg Hydrox/Simethicone (Maalox Max Susp) 15 ml Q4H PRN PO 07/24/16 21:45 08/23/16 21:44 Magnesium Hydroxide (Milk Of Magnesia Susp) 30 ml Q6H PRN PO 07/24/16 21:45 08/23/16 21:44 Polyethylene (Miralax Powder Packet) 17 gm DAILY PRN PO 07/24/16 22:00 08/23/16 21:59 07/26/16 20:10 17 GM Ondansetron HCl (Zofran Inj) 4 mg Q6H PRN IV 07/24/16 21:45 08/23/16 21:44 Amantadine HCl (Symmetrel Cap) 100 mg BID PO 07/25/16 08:00 08/24/16 08:59 07/26/16 20:12 100 MG Bupropion HCl (Wellbutrin-Sr Tab) 100 mg DAILY@1500 PO 07/25/16 15:00 08/24/16 14:59 07/26/16 17:09 100 MG Bupropion HCl (Wellbutrin-Sr Tab) 100 mg QAM PO 07/25/16 08:00 08/24/16 08:59 07/26/16 07:56 100 MG Meclizine HCl (Antivert Tab) 25 mg TID PRN PO 07/24/16 22:30 08/23/16 22:29 Multivitamins (Multivitamin Tab) 1 tab DAILY PO 07/25/16 08:00 08/24/16 08:59 07/26/16 07:55 1 TAB Trazodone HCl (Desyrel Tab) 150 mg HS PO 07/25/16 21:00 08/24/16 20:59 07/26/16 20:11 150 MG Cholecalciferol (Vitamin D Tab) 5,000 inter.unit DAILY PO 07/25/16 08:00 08/24/16 08:59 07/26/16 07:56 5,000 INTER.UNIT Miscellaneous Information (Order Awaiting Action) 1 ea QS N/A 07/25/16 08:00 08/24/16 07:59 Docusate Sodium (coLACE CAP) 100 mg BID PO 07/25/16 08:00 08/24/16 08:59 1/9/17 20:11 100 MG Senna (Senokot Tab) 8.6 mg QAM PO 07/25/16 08:00 08/24/16 08:59 07/26/16 07:56 8.6 MG Bisacodyl 5 mg 5 mg DAILY PRN PO 07/24/16 22:30 08/23/16 22:29 07/26/16 20:10 5 MG Sodium Chloride (Nss 1000ml) 1,000 ml @ 100 mls/hr Q10H IV 07/24/16 22:45 08/23/16 22:44 07/26/16 05:17 100 MLS/HR Guaifenesin (Mucinex Contr Rel Tab) 600 mg Q12H PO 07/25/16 09:00 08/24/16 08:59 07/26/16 20:13 600 MG Phenol (Chloraseptic 1.4% [place]) 1 sprays BID PRN MT 07/24/16 22:45 08/23/16 22:44 07/25/16 18:43 1 SPRAYS Ioversol (Optiray 320) 100 ml UD PRN IV 07/24/16 22:45 07/28/16 22:44 Oxybutynin Chloride (Ditropan-Xl Tab) 10 mg BID PO 07/25/16 08:00 08/24/16 07:59 07/26/16 20:12 10 MG Piperacillin Sod/ Tazobactam Sod 1 ea 1 ea UD PRN N/A 07/25/16 10:07 08/24/16 10:06 Piperacillin Sod/ Tazobactam Sod/ Dextrose (Zosyn Iv/D5 100ml) 120 ml @ 30 mls/hr Q8H IV 07/25/16 16:00 08/01/16 15:59 07/26/16 17:08 30 MLS/HR Vancomycin HCl 1 ea 1 ea UD PRN N/A 07/25/16 10:15 08/24/16 10:14 Heparin Sodium/ Dextrose (Heparin 25,000 Unit/500ml D5W) 500 ml @ 26 mls/hr [id number] PRN IV 07/25/16 10:45 08/24/16 10:44 07/26/16 08:15 26 MLS/HR Enteral Nutritional Formula 1 can 1 can TIDM PO 1/8/17 17:00 08/24/16 16:59 07/26/16 17:09 1 CAN Vancomycin HCl/ Sodium Chloride (Vancomycin Inj/ Nss 250ml) 270 ml @ 125 mls/hr Q8H IV 07/26/16 18:00 08/01/16 17:59 07/26/16 17:09 125 MLS/HR
[2016-07-27 00:28] VITALS: BP 92/55; PULSE 81; TEMP 37.5; O2SAT 94
[2016-07-27] MEDS: VANCOMYCIN INJ 1,000 MG in SODIUM CHLORIDE 0.9% 250ML 250 ML IV SCH ×2 (02:12→10:17)
[2016-07-27 04:10] VITALS: TEMP 37.1
[2016-07-27] MEDS: HEPARIN 25,000 UNIT/500ML D5W 500 ML IV PRN (04:16)
[2016-07-27 07:46] VITALS: BP 99/61; PULSE 65; TEMP 36.9; O2SAT 95
[2016-07-27 08:00] VITALS: O2SAT 95
[2016-07-27 08:15] LABS: BASO % 0.6 %; BASO ABS # 0.04 K/uL (0-0.2); EOS % 3.4 %; HEMATOCRIT 25.7 % (42-52); IG% 0.9 %; LYMPH % 21.6 %; LYMPH ABS # 1.41 K/uL (1.2-3.4); MEAN CELL VOLUME 86.8 fL (80-100); MEAN CORPUSCULAR HEMOGLOBIN 29.1 pg (25-34); MEAN CORPUSCULAR HGB CONC 33.5 g/dl (32-36); MEAN PLATELET VOLUME 9.1 fL (7.4-10.4); MONO % 14.4 %; NEUT % 59.1 %; PLATELET COUNT 276 K/uL (130-400); RED BLOOD COUNT 2.96 M/uL (4.7-6.1); WHITE BLOOD COUNT 6.52 K/uL (4.8-10.8)
[2016-07-27] MEDS: PIPERACILL/TAZOBAC IV 4.5 GM in DEXTROSE 5% 100ML IV SCH (08:16)
[2016-07-27] MEDS: SENNA 8.6 MG TAB PO SCH (08:17)
[2016-07-27] MEDS: BuPROPion SR 100 MG TABCR PO SCH ×2 (08:17→16:21)
[2016-07-27] MEDS: MULTIVITAMIN TAB PO SCH (08:17)
[2016-07-27] MEDS: AMANTADINE HCL 100 MG CAP PO SCH ×2 (08:17→21:50)
[2016-07-27] MEDS: GUAIFENESIN 600 MG TABCR PO SCH ×2 (08:17→21:50)
[2016-07-27] MEDS: OXYBUTYNIN CHLORIDE 5 MG TABCR PO SCH ×2 (08:17→21:49)
[2016-07-27] MEDS: DOCUSATE SODIUM 100 MG CAP PO SCH ×2 (08:17→21:48)
[2016-07-27] MEDS: BOOST PLUS VANILLA PO SCH ×6 (08:17→19:00)
[2016-07-27] MEDS: CHOLECALCIFEROL 1000 INTER.UNIT TAB PO SCH (08:18)
[2016-07-27 08:29] LABS: PARTIAL THROMBOPLASTIN RATIO 1.9
[2016-07-27 08:31] LABS: ANISOCYTOSIS PRESENT; COMPLETE YES; HYPOCHROMIA PRESENT; POIKILOCYTOSIS PRESENT
[2016-07-27 08:39] LABS: BLOOD UREA NITROGEN 4 mg/dl (7-18); BUN/CREATININE RATIO 8.3 (10-20); CALCIUM 7.5 mg/dl (8.5-10.1); CARBON DIOXIDE 24 mmol/L (21-32); CHLORIDE 112 mmol/L (98-107); CREATININE 0.46 mg/dl (0.60-1.40); GLUCOSE 86 mg/dl (70-99); POTASSIUM 3.7 mmol/L (3.5-5.1); SODIUM 144 mmol/L (136-145)
--- NOTE | 2016-07-27 09:01 | ECHOCARDIOGRAM REPORT ---
*NOTICE TO RECEIVING LIBERTARIAN AGENCY This information is strictly Confidential and protected under [place] law. [place] law prohibits you from making any further disclosure of this information unless further disclosure is expressly permitted by the written consent of the person to whom it pertains or is authorized by law. A general authorization for the release of medical or other information is not sufficient for this purpose. Hospital accepts no responsibility if the information is made available to any other person, INCLUDING THE PATIENT. Interpretation Summary * Name: REILLY SKAGGS Study Date: 07/26/2016 02:55 PM BP: 101/62 mmHg * Patient Location: C.4E\S\E400\S\1 HR: 79 * : 1985 (M/d/yyyy) Gender: Male Height: 71 in * Age: 31 yrs Ethnicity: CA Weight: 127 lb * Ordering Physician: Hayder Waddell * Referring Physician: Self, Referred * Performed By: Jeni Kaufman RDCS * * Reason For Study: ENDOCARDITIS * BSA: 1.7 m2 * History: ENDOCARDITIS * There is no evidence of a mass or vegetation. This does not rule out endocarditis. 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 * Left ventricular systolic function is normal. * Ejection Fraction = 50-55%. * The right ventricle is mildly dilated. * The right ventricular systolic function is mildly reduced. * There is no evidence of pulmonary hypertension. The PA systolic pressure is less than 36 mmHg. * There is no evidence of a mass or vegetation. This does not rule out endocarditis. Procedure Details * A complete two-dimensional transthoracic echocardiogram was performed (2D, M-mode, Doppler and color flow Doppler). Left Ventricle * The left ventricle is normal in size. * There is global thinning of the left ventricular ca. * Ejection Fraction = 50-55%. * Left ventricular systolic function is normal. Right Ventricle * The right ventricle is mildly dilated. * There is normal right ventricular wall thickness. * The right ventricular systolic function is mildly reduced. Atria * The left atrial size is normal. * Right atrial size is normal. * The interatrial septum is intact with no evidence for an atrial septal defect. Mitral Valve * The mitral valve is normal in structure and function. * There is no vegetation seen on the mitral valve. * There is no mitral valve stenosis. * There is no mitral regurgitation noted. Tricuspid Valve * The tricuspid valve is normal in structure and function. * There is no tricuspid valve vegetation. * There is trace tricuspid regurgitation. Aortic Valve * The aortic valve is normal in structure and function. * There is no aortic valvular vegetation. * No aortic regurgitation is present. Pulmonic Valve * The pulmonic valve is not well seen, but is grossly normal. * There is no pulmonic valvular regurgitation. Great Vessels * The aortic root is normal size. * No obvious dissection could be visualized. * The pulmonary artery is normal size. Pericardium/Pleural * There is no pericardial effusion. Great Vessels * There is no evidence of pulmonary hypertension. The PA systolic pressure is less than 36 mmHg. MMode 2D Measurements and Calculations IVSd 0.74 cm IVSs 1.0 cm LVIDd 3.9 cm LVIDs 2.8 cm LVPWd 1.2 cm LVPWs 1.8 cm IVS/LVPW 0.60 FS 29.0 % EDV(Teich) 67.4 ml ESV(Teich) 29.4 ml EF(Teich) 56.3 % EDV(cubed) 61.0 ml ESV(cubed) 21.9 ml EF(cubed) 64.1 % % IVS thick 38.4 % % LVPW thick 49.6 % LV mass(C)d 121.2 grams LV mass(C)dI 69.7 grams/m\S\2 LV mass(C)s 133.3 grams LV mass(C)sI 76.7 grams/m\S\2 SV(Teich) 37.9 ml SI(Teich) 21.8 ml/m\S\2 SV(cubed) 39.1 ml SI(cubed) 22.5 ml/m\S\2 Ao root diam 3.3 cm Ao root area 8.3 cm\S\2 LA dimension 2.6 cm LA/Ao 0.80 LVAd ap4 30.6 cm\S\2 LVLd ap4 8.6 cm EDV(MOD-sp4) 90.5 ml EDV(sp4-el) 92.9 ml LVAs ap4 19.9 cm\S\2 LVLs ap4 7.2 cm ESV(MOD-sp4) 45.6 ml ESV(sp4-el) 46.5 ml EF(MOD-sp4) 49.6 % EF(sp4-el) 50.0 % LVAd ap2 31.6 cm\S\2 LVLd ap2 8.4 cm EDV(MOD-sp2) 97.4 ml EDV(sp2-el) 100.9 ml LVAs ap2 18.6 cm\S\2 LVLs ap2 6.4 cm ESV(MOD-sp2) 45.7 ml ESV(sp2-el) 45.8 ml EF(MOD-sp2) 53.1 % EF(sp2-el) 54.6 % LVLd %diff -2.28 % EDV(MOD-bp) 93.9 ml LVLs %diff -13.14 % ESV(MOD-bp) 48.2 ml EF(MOD-bp) 48.7 % SV(MOD-sp4) 44.8 ml SI(MOD-sp4) 25.8 ml/m\S\2 SV(MOD-sp2) 51.8 ml SI(MOD-sp2) 29.8 ml/m\S\2 SV(MOD-bp) 45.7 ml SI(MOD-bp) 26.3 ml/m\S\2 SV(sp4-el) 46.4 ml SI(sp4-el) 26.7 ml/m\S\2 SV(sp2-el) 55.0 ml SI(sp2-el) 31.7 ml/m\S\2 Doppler Measurements and Calculations MV E max felix 89.2 cm/sec MV dec time 0.23 sec Ao V2 max 107.7 cm/sec Ao max PG 4.6 mmHg Ao max PG (full) 1.0 mmHg LV V1 max PG 3.6 mmHg LV V1 max 95.1 cm/sec TR max felix 226.2 cm/sec
[2016-07-27] MEDS ORDERED: VANCOMYCIN TROUGH ONE (09:30)
[2016-07-27] MEDS: SODIUM CHLORIDE 0.9% 1000ML 1,000 ML IV SCH ×2 (10:17→21:53)
--- NOTE | 2016-07-27 15:23 | Pulmonology Progress Note ---
Pulmonary Progress Note Date of Service Jul 27, 2016. Attending Dr. Hayder Waddell Subjective Patient feels like he has more energy today. He still notes continued yellow sputum production but denies fever or chills Objective Severely cachectic male able to complete full sentences while lying in bed no signs of increased respiratory/work of breathing. Vital signs: Reviewed and stable RESP: No breath sounds appreciated right upper anterior hemithorax otherwise within normal limits Cardiac: S1-S2 no notable murmurs rubs or gallops. ENT: Oropharynx within normal limits Sputum 07/25/2016: MSSA Sputum 07/25/2016: Final acid-fast culture pending QuantiFERON Gold, pending Cocci antibody: Pending Histoplasmosis antibody: Pending Galactomannan: Pending CTA 07/25/2016: Sagittal and axial recuperations performed. Suggest that large necrotizing cavity in the right upper lobe does not cross the major fissure. Echocardiogram: 07/27/16: Via transthoracic echocardiogram no signs or evidence at this time of mass/vegetation Assessment & Plan 31-year-old immunosuppressives male with right upper lobe cavitating lesion: 1) Pulmonary: Should note the patient not only has right upper lobe cavitary lesion with fluid collection but also multiple groundglass nodules in the right lower lobe and right middle lobe as well. Patient has grown out MSSA on his sputum 07/25/2016 which would be consistent with his current pulmonary findings. It also is reassuring that his current echocardiogram showed no signs of vegetation but it was limited as it was a transthoracic and not transesophageal. I will leave manipulation of the antibiotics to the infectious disease team at this time. Fungal urine and serum studies are currently pending as well as sputum CHARLI stain. QuantiFERON Gold is pending as well as final AFB cultures. Data Medications: Current Inpatient Medications Medications (Trade) Dose Ordered Sig/Camilo Route Start Time Stop Time Status Last Admin Dose Admin Acetaminophen (Tylenol Tab) 650 mg Q4H PRN PO 07/24/16 21:45 08/23/16 21:44 07/25/16 20:51 650 MG Al Hydrox/Mg Hydrox/Simethicone (Maalox Max Susp) 15 ml Q4H PRN PO 07/24/16 21:45 08/23/16 21:44 Magnesium Hydroxide (Milk Of Magnesia Susp) 30 ml Q6H PRN PO 07/24/16 21:45 08/23/16 21:44 Polyethylene (Miralax Powder Packet) 17 gm DAILY PRN PO 07/24/16 22:00 08/23/16 21:59 07/26/16 20:10 17 GM Ondansetron HCl (Zofran Inj) 4 mg Q6H PRN IV 07/24/16 21:45 08/23/16 21:44 Amantadine HCl (Symmetrel Cap) 100 mg BID PO 07/25/16 08:00 08/24/16 08:59 07/27/16 08:17 100 MG Bupropion HCl (Wellbutrin-Sr Tab) 100 mg DAILY@1500 PO 07/25/16 15:00 08/24/16 14:59 07/26/16 17:09 100 MG Bupropion HCl (Wellbutrin-Sr Tab) 100 mg QAM PO 07/25/16 08:00 08/24/16 08:59 07/27/16 08:17 100 MG Meclizine HCl (Antivert Tab) 25 mg TID PRN PO 07/24/16 22:30 08/23/16 22:29 Multivitamins (Multivitamin Tab) 1 tab DAILY PO 07/25/16 08:00 08/24/16 08:59 07/27/16 08:17 1 TAB Trazodone HCl (Desyrel Tab) 150 mg HS PO 07/25/16 21:00 08/24/16 20:59 07/26/16 20:11 150 MG Cholecalciferol (Vitamin D Tab) 5,000 inter.unit DAILY PO 07/25/16 08:00 08/24/16 08:59 07/27/16 08:18 5,000 INTER.UNIT Miscellaneous Information (Order Awaiting Action) 1 ea QS N/A 07/25/16 08:00 08/24/16 07:59 Docusate Sodium (coLACE CAP) 100 mg BID PO 07/25/16 08:00 08/24/16 08:59 07/27/16 08:17 100 MG Senna (Senokot Tab) 8.6 mg QAM PO 07/25/16 08:00 08/24/16 08:59 07/27/16 08:17 8.6 MG Bisacodyl 5 mg 5 mg DAILY PRN PO 07/24/16 22:30 2/6/17 22:29 07/26/16 20:10 5 MG Sodium Chloride (Nss 1000ml) 1,000 ml @ 100 mls/hr Q10H IV 07/24/16 22:45 08/23/16 22:44 07/27/16 10:17 100 MLS/HR Guaifenesin (Mucinex Contr Rel Tab) 600 mg Q12H PO 07/25/16 09:00 08/24/16 08:59 07/27/16 08:17 600 MG Phenol (Chloraseptic 1.4% [place]) 1 sprays BID PRN MT 07/24/16 22:45 08/23/16 22:44 07/25/16 18:43 1 SPRAYS Ioversol (Optiray 320) 100 ml UD PRN IV 07/24/16 22:45 07/28/16 22:44 Oxybutynin Chloride (Ditropan-Xl Tab) 10 mg BID PO 07/25/16 08:00 08/24/16 07:59 07/27/16 08:17 10 MG Piperacillin Sod/ Tazobactam Sod 1 ea 1 ea UD PRN N/A 07/25/16 10:07 08/24/16 10:06 Heparin Sodium/ Dextrose (Heparin 25,000 Unit/500ml D5W) 500 ml @ 26 mls/hr [id number] PRN IV 07/25/16 10:45 08/24/16 10:44 07/27/16 04:16 26 MLS/HR Enteral Nutritional Formula 1 can 1 can TIDM PO 07/25/16 17:00 08/24/16 16:59 07/27/16 11:25 1 CAN Piperacillin Sod/ Tazobactam Sod/ Dextrose (Zosyn Iv/D5 100ml) 115 ml @ 28.75 mls/ hr Q8H IV 07/27/16 16:00 07/31/16 23:59 I & O: 24-Hour Column 07/27/16 08:00 Intake Total 4399 ml Output Total 2075 ml Balance 2324 ml Vital Signs: Date Time Temp Pulse Resp B/P Pulse Ox O2 Delivery O2 Flow Rate FiO2 07/27/16 08:00 95 Room Air 07/27/16 07:46 36.9 65 18 99/61 95 Room Air 07/27/16 04:10 37.1 07/27/16 00:28 37.5 81 18 92/55 94 Room Air 07/27/16 00:00 Room Air 07/26/16 16:05 90 Room Air Laboratory Results: Last 24 Hours Test 07/27/16 07:56 07/27/16 09:23 White Blood Count 6.52 K/uL Red Blood Count 2.96 M/uL Hemoglobin 8.6 g/dL Hematocrit 25.7 % Mean Corpuscular Volume 86.8 fL Mean Corpuscular Hemoglobin 29.1 pg Mean Corpuscular Hemoglobin Concent 33.5 g/dl Platelet Count 276 K/uL Mean Platelet Volume 9.1 fL Neutrophils (%) (Auto) 59.1 % Lymphocytes (%) (Auto) 21.6 % Monocytes (%) (Auto) 14.4 % Eosinophils (%) (Auto) 3.4 % Basophils (%) (Auto) 0.6 % Neutrophils # (Auto) 3.85 K/uL Lymphocytes # (Auto) 1.41 K/uL Monocytes # (Auto) 0.94 K/uL Eosinophils # (Auto) 0.22 K/uL Basophils # (Auto) 0.04 K/uL RDW Standard Deviation 44.7 fL RDW Coefficient of Variation 14.2 % Immature Granulocyte % (Auto) 0.9 % Immature Granulocyte # (Auto) 0.06 K/uL Hypochromasia PRESENT Poikilocytosis PRESENT Anisocytosis PRESENT Activated Partial Thromboplast Time 48.1 SECONDS Partial Thromboplastin Ratio 1.9 Sodium Level 144 mmol/L Potassium Level 3.7 mmol/L Chloride Level 112 mmol/L Carbon Dioxide Level 24 mmol/L Anion Gap 8.0 mmol/L Blood Urea Nitrogen 4 mg/dl Creatinine 0.46 mg/dl Est Creatinine Clear Calc Drug Dose 190.9 ml/min Estimated GFR () > 150.0 Estimated GFR (Non- 149.4 BUN/Creatinine Ratio 8.3 Random Glucose 86 mg/dl Calcium Level 7.5 mg/dl Vancomycin Level Trough 13.6 mcg/ml
[2016-07-27 15:39] VITALS: BP 97/62; PULSE 69; TEMP 36.8; O2SAT 95
[2016-07-27] MEDS: PIPERACILL/TAZOBAC IV 3.375 GM in DEXTROSE 5% 100ML 100 ML IV SCH (16:20)
--- NOTE | 2016-07-27 19:19 | Infectious Disease Progress Nt ---
Progress Note Date of Service Jul 27, 2016. Subjective Pt evaluation today including: conversation w/ patient, physical exam, chart review, lab review, review of studies, conversation w/ weight loss consultant, review of inpatient medication list Still with cough but improving. No fever. Hemodynamically stable. Cultures growing staph. All Other Systems: Reviewed and Negative Medications Current Inpatient Medications Medications (Trade) Dose Ordered Sig/Camilo Route Start Time Stop Time Status Last Admin Dose Admin Acetaminophen (Tylenol Tab) 650 mg Q4H PRN PO 07/24/16 21:45 08/23/16 21:44 07/25/16 20:51 650 MG Al Hydrox/Mg Hydrox/Simethicone (Maalox Max Susp) 15 ml Q4H PRN PO 07/24/16 21:45 08/23/16 21:44 Magnesium Hydroxide (Milk Of Magnesia Susp) 30 ml Q6H PRN PO 07/24/16 21:45 08/23/16 21:44 Polyethylene (Miralax Powder Packet) 17 gm DAILY PRN PO 07/24/16 22:00 08/23/16 21:59 07/26/16 20:10 17 GM Ondansetron HCl (Zofran Inj) 4 mg Q6H PRN IV 07/24/16 21:45 08/23/16 21:44 Amantadine HCl (Symmetrel Cap) 100 mg BID PO 07/25/16 08:00 08/24/16 08:59 07/27/16 08:17 100 MG Bupropion HCl (Wellbutrin-Sr Tab) 100 mg DAILY@1500 PO 07/25/16 15:00 08/24/16 14:59 07/27/16 16:21 100 MG Bupropion HCl (Wellbutrin-Sr Tab) 100 mg QAM PO 07/25/16 08:00 08/24/16 08:59 07/27/16 08:17 100 MG Meclizine HCl (Antivert Tab) 25 mg TID PRN PO 07/24/16 22:30 08/23/16 22:29 Multivitamins (Multivitamin Tab) 1 tab DAILY PO 07/25/16 08:00 08/24/16 08:59 07/27/16 08:17 1 TAB Trazodone HCl (Desyrel Tab) 150 mg HS PO 07/25/16 21:00 08/24/16 20:59 07/26/16 20:11 150 MG Cholecalciferol (Vitamin D Tab) 5,000 inter.unit DAILY PO 07/25/16 08:00 08/24/16 08:59 07/27/16 08:18 5,000 INTER.UNIT Miscellaneous Information (Order Awaiting Action) 1 ea QS N/A 07/25/16 08:00 08/24/16 07:59 Docusate Sodium (coLACE CAP) 100 mg BID PO 07/25/16 08:00 08/24/16 08:59 07/27/16 08:17 100 MG Senna (Senokot Tab) 8.6 mg QAM PO 07/25/16 08:00 08/24/16 08:59 07/27/16 08:17 8.6 MG Bisacodyl 5 mg 5 mg DAILY PRN PO 07/24/16 22:30 08/23/16 22:29 07/26/16 20:10 5 MG Sodium Chloride (Nss 1000ml) 1,000 ml @ 100 mls/hr Q10H IV 07/24/16 22:45 08/23/16 22:44 07/27/16 10:17 100 MLS/HR Guaifenesin (Mucinex Contr Rel Tab) 600 mg Q12H PO 07/25/16 09:00 08/24/16 08:59 07/27/16 08:17 600 MG Phenol (Chloraseptic 1.4% [place]) 1 sprays BID PRN MT 07/24/16 22:45 08/23/16 22:44 07/25/16 18:43 1 SPRAYS Ioversol (Optiray 320) 100 ml UD PRN IV 07/24/16 22:45 07/28/16 22:44 Oxybutynin Chloride (Ditropan-Xl Tab) 10 mg BID PO 07/25/16 08:00 08/24/16 07:59 07/27/16 08:17 10 MG Piperacillin Sod/ Tazobactam Sod 1 ea 1 ea UD PRN N/A 07/25/16 10:07 08/24/16 10:06 Heparin Sodium/ Dextrose (Heparin 25,000 Unit/500ml D5W) 500 ml @ 26 mls/hr [id number] PRN IV 07/25/16 10:45 08/24/16 10:44 07/27/16 04:16 26 MLS/HR Enteral Nutritional Formula 1 can 1 can TIDM PO 07/25/16 17:00 08/24/16 16:59 07/27/16 11:25 1 CAN Piperacillin Sod/ Tazobactam Sod/ Dextrose (Zosyn Iv/D5 100ml) 115 ml @ 28.75 mls/ hr Q8H IV 07/27/16 16:00 07/31/16 23:59 07/27/16 16:20 28.75 MLS/HR Objective Vital Signs Date Time Temp Pulse Resp B/P Pulse Ox O2 Delivery O2 Flow Rate FiO2 07/27/16 16:00 Room Air 07/27/16 15:39 36.8 69 18 97/62 95 Room Air 07/27/16 08:00 95 Room Air 07/27/16 07:46 36.9 65 18 99/61 95 Room Air 07/27/16 04:10 37.1 07/27/16 00:28 37.5 81 18 92/55 94 Room Air 07/27/16 00:00 Room Air Physical Exam General Appearance: WD/WN, no apparent distress Eyes: normal inspection, sclerae normal ENT: normal ENT inspection, pharynx normal Neck: supple, no adenopathy, trachea midline Respiratory/Chest: chest non-tender ( you feel better), no respiratory distress , no accessory muscle use, + rales ( right upper lobe) Cardiovascular: regular rate, rhythm, no gallop, no murmur Abdomen: normal bowel sounds, non tender, soft, no organomegaly Extremities: non-tender, no calf tenderness Neurologic/Psychiatric: alert, oriented x 3 Skin: normal color, warm/dry, no rash Lymphatic: no adenopathy Laboratory Results Last 24 Hours Test 07/27/16 07:56 07/27/16 09:23 White Blood Count 6.52 K/uL Red Blood Count 2.96 M/uL Hemoglobin 8.6 g/dL Hematocrit 25.7 % Mean Corpuscular Volume 86.8 fL Mean Corpuscular Hemoglobin 29.1 pg Mean Corpuscular Hemoglobin Concent 33.5 g/dl Platelet Count 276 K/uL Mean Platelet Volume 9.1 fL Neutrophils (%) (Auto) 59.1 % Lymphocytes (%) (Auto) 21.6 % Monocytes (%) (Auto) 14.4 % Eosinophils (%) (Auto) 3.4 % Basophils (%) (Auto) 0.6 % Neutrophils # (Auto) 3.85 K/uL Lymphocytes # (Auto) 1.41 K/uL Monocytes # (Auto) 0.94 K/uL Eosinophils # (Auto) 0.22 K/uL Basophils # (Auto) 0.04 K/uL RDW Standard Deviation 44.7 fL RDW Coefficient of Variation 14.2 % Immature Granulocyte % (Auto) 0.9 % Immature Granulocyte # (Auto) 0.06 K/uL Hypochromasia PRESENT Poikilocytosis PRESENT Anisocytosis PRESENT Activated Partial Thromboplast Time 48.1 SECONDS Partial Thromboplastin Ratio 1.9 Sodium Level 144 mmol/L Potassium Level 3.7 mmol/L Chloride Level 112 mmol/L Carbon Dioxide Level 24 mmol/L Anion Gap 8.0 mmol/L Blood Urea Nitrogen 4 mg/dl Creatinine 0.46 mg/dl Est Creatinine Clear Calc Drug Dose 190.9 ml/min Estimated GFR () > 150.0 Estimated GFR (Non- 149.4 BUN/Creatinine Ratio 8.3 Random Glucose 86 mg/dl Calcium Level 7.5 mg/dl Vancomycin Level Trough 13.6 mcg/ml Assessment and Plan right upper lobe cavitary lesion in patient on immunosuppressive therapy for multiple sclerosis. sputum cultures growing methicillin sensitive Staph aureus , certainly could be cause cavitary lesion. Not clear whether this was responsible for other lung findings. For now, patient will be continued on IV Zosyn, with length of IV antibiotics to be determined by clinical response. We will follow.
--- NOTE | 2016-07-27 19:23 | Progress Note ---
Medicine Progress Note Date & Time of Visit: Jul 27, 2016 at 19:23. Subjective Patient continues to cough, mostly non-productive with occasional sputum. No overnight events noted. No new complaints. Patient requests any procedures to hasten his recovery from pneumonia. Patient's father Navdeep rain. Objective Last 8 Hrs Date Time Temp Pulse Resp B/P Pulse Ox O2 Delivery O2 Flow Rate FiO2 07/27/16 16:00 Room Air 07/27/16 15:39 36.8 69 18 97/62 95 Room Air Physical Exam: GENERAL: Patient is in no acute distress. Appears cachectic HEENT: No acute trauma, normocephalic, mucous membranes moist, no nasal congestion, no scleral icterus. NECK: No stridor, trachea is midline. LUNGS: Diminished bilaterally, coarse rhonchi, breath sounds equal. HEART: Without murmurs gallops or rubs, regular rate and rhythm. ABDOMEN: Soft, nontender, bowel sounds positive EXTREMITIES: No cyanosis or edema NEUROLOGIC: Oriented x 3, no acute motor or sensory deficits, no focal weakness. SKIN: No rash, no jaundice, no diaphoresis. Laboratory Results: Last 24 Hours Test 07/27/16 07:56 07/27/16 09:23 White Blood Count 6.52 K/uL Red Blood Count 2.96 M/uL Hemoglobin 8.6 g/dL Hematocrit 25.7 % Mean Corpuscular Volume 86.8 fL Mean Corpuscular Hemoglobin 29.1 pg Mean Corpuscular Hemoglobin Concent 33.5 g/dl Platelet Count 276 K/uL Mean Platelet Volume 9.1 fL Neutrophils (%) (Auto) 59.1 % Lymphocytes (%) (Auto) 21.6 % Monocytes (%) (Auto) 14.4 % Eosinophils (%) (Auto) 3.4 % Basophils (%) (Auto) 0.6 % Neutrophils # (Auto) 3.85 K/uL Lymphocytes # (Auto) 1.41 K/uL Monocytes # (Auto) 0.94 K/uL Eosinophils # (Auto) 0.22 K/uL Basophils # (Auto) 0.04 K/uL RDW Standard Deviation 44.7 fL RDW Coefficient of Variation 14.2 % Immature Granulocyte % (Auto) 0.9 % Immature Granulocyte # (Auto) 0.06 K/uL Hypochromasia PRESENT Poikilocytosis PRESENT Anisocytosis PRESENT Activated Partial Thromboplast Time 48.1 SECONDS Partial Thromboplastin Ratio 1.9 Sodium Level 144 mmol/L Potassium Level 3.7 mmol/L Chloride Level 112 mmol/L Carbon Dioxide Level 24 mmol/L Anion Gap 8.0 mmol/L Blood Urea Nitrogen 4 mg/dl Creatinine 0.46 mg/dl Est Creatinine Clear Calc Drug Dose 190.9 ml/min Estimated GFR () > 150.0 Estimated GFR (Non- 149.4 BUN/Creatinine Ratio 8.3 Random Glucose 86 mg/dl Calcium Level 7.5 mg/dl Vancomycin Level Trough 13.6 mcg/ml Assessment & Plan CAVITARY LUNG LESION, POSSIBLE LUNG ABSCESS, AND WORKUP TO RULE OUT TB -risk factors include 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 (taken since 2013, [place] controlled) -remains afebrile -sputum culture: MSSA -unclear etiology of pneumonia, whether this is from MSSA alone, or if there is concomitant fungal or TB infection -blood cultures: pending -AFB sputum negative x1 -Quantiferon gold pending -Serologic tests for Fungal infection pending -was on Vanco and Zosyn IV, due to staph being MSSA, vanco was stopped -maintain airborne precautions for now -Aubagio held for now -ID and Pulm consulted, appreciate recommendations BILATERAL LOWER LOBE PULMONARY EMBOLI: -risk factors: underlying illness, sedentary -on IV Heparin -add warfarin when ok with pulmonary ANEMIA: -has low iron, was started on Iron supplement -monitor -no bleeding noted MILD INR ELEVATION: -Liver US: no abnormalities -question if from Aubagio -monitor MULTIPLE SCLEROSIS: -controlled symptoms with Aubagio, but may be causing immunocompromised status -Neurology consulted, recommend to hold Aubagio for now 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 of urethral strictures -intermittently self catheterizes -continue Andino for now CACHEXIA/PROTEIN CALORIE MALNUTRITION: -likely from underlying infection -Nutrition consulted -BMI: 17.8 Current Inpatient Medications: Current Inpatient Medications Medications (Trade) Dose Ordered Sig/Camilo Route Start Time Stop Time Status Last Admin Dose Admin Acetaminophen (Tylenol Tab) 650 mg Q4H PRN PO 07/24/16 21:45 08/23/16 21:44 07/25/16 20:51 650 MG Al Hydrox/Mg Hydrox/Simethicone (Maalox Max Susp) 15 ml Q4H PRN PO 07/24/16 21:45 08/23/16 21:44 Magnesium Hydroxide (Milk Of Magnesia Susp) 30 ml Q6H PRN PO 07/24/16 21:45 08/23/16 21:44 Polyethylene (Miralax Powder Packet) 17 gm DAILY PRN PO 07/24/16 22:00 08/23/16 21:59 07/26/16 20:10 17 GM Ondansetron HCl (Zofran Inj) 4 mg Q6H PRN IV 07/24/16 21:45 08/23/16 21:44 Amantadine HCl (Symmetrel Cap) 100 mg BID PO 07/25/16 08:00 08/24/16 08:59 07/27/16 08:17 100 MG Bupropion HCl (Wellbutrin-Sr Tab) 100 mg DAILY@1500 PO 07/25/16 15:00 08/24/16 14:59 07/27/16 16:21 100 MG Bupropion HCl (Wellbutrin-Sr Tab) 100 mg QAM PO 07/25/16 08:00 08/24/16 08:59 07/27/16 08:17 100 MG Meclizine HCl (Antivert Tab) 25 mg TID PRN PO 07/24/16 22:30 08/23/16 22:29 Multivitamins (Multivitamin Tab) 1 tab DAILY PO 07/25/16 08:00 08/24/16 08:59 07/27/16 08:17 1 TAB Trazodone HCl (Desyrel Tab) 150 mg HS PO 07/25/16 21:00 08/24/16 20:59 07/26/16 20:11 150 MG Cholecalciferol (Vitamin D Tab) 5,000 inter.unit DAILY PO 07/25/16 08:00 08/24/16 08:59 07/27/16 08:18 5,000 INTER.UNIT Miscellaneous Information (Order Awaiting Action) 1 ea QS N/A 07/25/16 08:00 08/24/16 07:59 Docusate Sodium (coLACE CAP) 100 mg BID PO 07/25/16 08:00 08/24/16 08:59 07/27/16 08:17 100 MG Senna (Senokot Tab) 8.6 mg QAM PO 07/25/16 08:00 08/24/16 08:59 07/27/16 08:17 8.6 MG Bisacodyl 5 mg 5 mg DAILY PRN PO 07/24/16 22:30 08/23/16 22:29 07/26/16 20:10 5 MG Sodium Chloride (Nss 1000ml) 1,000 ml @ 100 mls/hr Q10H IV 07/24/16 22:45 08/23/16 22:44 07/27/16 10:17 100 MLS/HR Guaifenesin (Mucinex Contr Rel Tab) 600 mg Q12H PO 07/25/16 09:00 08/24/16 08:59 07/27/16 08:17 600 MG Phenol (Chloraseptic 1.4% [place]) 1 sprays BID PRN MT 07/24/16 22:45 08/23/16 22:44 07/25/16 18:43 1 SPRAYS Ioversol (Optiray 320) 100 ml UD PRN IV 07/24/16 22:45 07/28/16 22:44 Oxybutynin Chloride (Ditropan-Xl Tab) 10 mg BID PO 07/25/16 08:00 08/24/16 07:59 07/27/16 08:17 10 MG Piperacillin Sod/ Tazobactam Sod 1 ea 1 ea UD PRN N/A 07/25/16 10:07 08/24/16 10:06 Heparin Sodium/ Dextrose (Heparin 25,000 Unit/500ml D5W) 500 ml @ 26 mls/hr [id number] PRN IV 07/25/16 10:45 08/24/16 10:44 07/27/16 04:16 26 MLS/HR Enteral Nutritional Formula 1 can 1 can TIDM PO 07/25/16 17:00 08/24/16 16:59 07/27/16 11:25 1 CAN Piperacillin Sod/ Tazobactam Sod/ Dextrose (Zosyn Iv/D5 100ml) 115 ml @ 28.75 mls/ hr Q8H IV 07/27/16 16:00 07/31/16 23:59 07/27/16 16:20 28.75 MLS/HR
[2016-07-27 23:59] VITALS: BP 105/63; PULSE 72; TEMP 36.9; O2SAT 95
[2016-07-28] MEDS: TRAZODONE HCL 50 MG TAB PO SCH ×2 (00:09→22:13)
[2016-07-28] MEDS: PIPERACILL/TAZOBAC IV 3.375 GM in DEXTROSE 5% 100ML 100 ML IV SCH ×3 (00:17→17:35)
[2016-07-28] MEDS: HEPARIN 25,000 UNIT/500ML D5W 500 ML IV PRN ×3 (01:33→18:00)
[2016-07-28 06:15] LABS: BASO % 0.6 %; BASO ABS # 0.04 K/uL (0-0.2); EOS % 4.2 %; HEMATOCRIT 26.5 % (42-52); IG% 1.3 %; LYMPH % 25.6 %; LYMPH ABS # 1.58 K/uL (1.2-3.4); MEAN CORPUSCULAR HEMOGLOBIN 27.9 pg (25-34); MEAN CORPUSCULAR HGB CONC 32.5 g/dl (32-36); MEAN PLATELET VOLUME 9.3 fL (7.4-10.4); MONO % 15.7 %; NEUT % 52.6 %; PLATELET COUNT 297 K/uL (130-400); RED BLOOD COUNT 3.08 M/uL (4.7-6.1); WHITE BLOOD COUNT 6.16 K/uL (4.8-10.8)
[2016-07-28 06:23] LABS: PARTIAL THROMBOPLASTIN RATIO 1.6
[2016-07-28] MEDS ORDERED: HEPARIN IV BOLUS 2,000 UNIT in SYRINGE 0 ML IV STA (06:32)
[2016-07-28 06:40] LABS: COMPLETE YES
[2016-07-28] MEDS: SODIUM CHLORIDE 0.9% 1000ML 1,000 ML IV SCH ×2 (06:41→17:35)
[2016-07-28 06:51] LABS: BLOOD UREA NITROGEN 5 mg/dl (7-18); BUN/CREATININE RATIO 10.9 (10-20); CARBON DIOXIDE 26 mmol/L (21-32); CHLORIDE 109 mmol/L (98-107); CREATININE 0.46 mg/dl (0.60-1.40); GLUCOSE 91 mg/dl (70-99); POTASSIUM 3.9 mmol/L (3.5-5.1); SODIUM 145 mmol/L (136-145)
[2016-07-28 07:48] VITALS: BP 108/55; PULSE 56; TEMP 36.4; O2SAT 93
[2016-07-28] MEDS: BOOST PLUS VANILLA PO SCH ×6 (08:14→17:35)
[2016-07-28] MEDS: DOCUSATE SODIUM 100 MG CAP PO SCH ×2 (08:14→22:10)
[2016-07-28] MEDS: MULTIVITAMIN TAB PO SCH (08:15)
[2016-07-28] MEDS: OXYBUTYNIN CHLORIDE 5 MG TABCR PO SCH ×2 (08:15→22:11)
[2016-07-28] MEDS: GUAIFENESIN 600 MG TABCR PO SCH ×2 (08:15→22:11)
[2016-07-28] MEDS: AMANTADINE HCL 100 MG CAP PO SCH ×2 (08:15→22:10)
[2016-07-28] MEDS: SENNA 8.6 MG TAB PO SCH (08:15)
[2016-07-28] MEDS: CHOLECALCIFEROL 1000 INTER.UNIT TAB PO SCH (08:15)
[2016-07-28] MEDS: BuPROPion SR 100 MG TABCR PO SCH ×2 (08:15→14:29)
[2016-07-28 09:05] LABS: QUANTIFERON NIL 0.05 IU/ML
[2016-07-28 12:41] LABS: PARTIAL THROMBOPLASTIN RATIO 1.5
[2016-07-28] MEDS ORDERED: HEPARIN IV BOLUS 5,000 UNIT in SYRINGE 0 ML IV ONE (13:45)
--- NOTE | 2016-07-28 13:48 | Pulmonology Progress Note ---
Pulmonary Progress Note Date of Service Jul 28, 2016. Attending Dr. Hayder Waddell Subjective Patient is doing well today with no active pulmonary complaints and decreasing sputum production. Objective Notably cachectic male showing no signs of increased work of breathing. Vital signs: Reviewed and stable RESP: No breath sounds appreciated right upper anterior hemithorax otherwise within normal limits Cardiac: S1-S2 no notable murmurs rubs or gallops. Skin: Healing left hip ulcer Sputum 07/25/2016: MSSA Sputum 07/25/2016: Final acid-fast culture pending QuantiFERON Gold: Negative CTA 07/25/2016: Sagittal and axial recuperations performed. Suggest that large necrotizing cavity in the right upper lobe does not cross the major fissure. Echocardiogram: 07/27/16: Via transthoracic echocardiogram no signs or evidence at this time of mass/vegetation SPUTUM: 07/26/2016 1. NO MALIGNANT CELLS SEEN. 2. NO FUNGAL OR MYCOBACTERIAL ORGANISMS IDENTIFIED ON SPECIAL STAINS. 3. ABUNDANT ACUTE INFLAMMATORY CELLS PRESENT. 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 I would like to obtain 2 more AFB sputum's on the then the for definitive rule out of atypical mycobacterial organisms. Fungal urine and serum studies are currently pending as well as sputum CHARLI stain. QuantiFERON Gold: Negative 2) Isolation: QuantiFERON is back in notably negative and as the patient had a positive mitogen test I believe at this time we can remove the patient from isolation. Data Medications: Current Inpatient Medications Medications (Trade) Dose Ordered Sig/Camilo Route Start Time Stop Time Status Last Admin Dose Admin Acetaminophen (Tylenol Tab) 650 mg Q4H PRN PO 07/24/16 21:45 08/23/16 21:44 07/25/16 20:51 650 MG Al Hydrox/Mg Hydrox/Simethicone (Maalox Max Susp) 15 ml Q4H PRN PO 07/24/16 21:45 08/23/16 21:44 Magnesium Hydroxide (Milk Of Magnesia Susp) 30 ml Q6H PRN PO 07/24/16 21:45 08/23/16 21:44 Polyethylene (Miralax Powder Packet) 17 gm DAILY PRN PO 07/24/16 22:00 08/23/16 21:59 07/26/16 20:10 17 GM Ondansetron HCl (Zofran Inj) 4 mg Q6H PRN IV 07/24/16 21:45 08/23/16 21:44 Amantadine HCl (Symmetrel Cap) 100 mg BID PO 07/25/16 08:00 08/24/16 08:59 07/28/16 08:15 100 MG Bupropion HCl (Wellbutrin-Sr Tab) 100 mg DAILY@1500 PO 07/25/16 15:00 08/24/16 14:59 07/27/16 16:21 100 MG Bupropion HCl (Wellbutrin-Sr Tab) 100 mg QAM PO 07/25/16 08:00 08/24/16 08:59 07/28/16 08:15 100 MG Meclizine HCl (Antivert Tab) 25 mg TID PRN PO 07/24/16 22:30 08/23/16 22:29 Multivitamins (Multivitamin Tab) 1 tab DAILY PO 07/25/16 08:00 08/24/16 08:59 07/28/16 08:15 1 TAB Trazodone HCl (Desyrel Tab) 150 mg HS PO 07/25/16 21:00 08/24/16 20:59 07/28/16 00:09 150 MG Cholecalciferol (Vitamin D Tab) 5,000 inter.unit DAILY PO 07/25/16 08:00 08/24/16 08:59 07/28/16 08:15 5,000 INTER.UNIT Miscellaneous Information (Order Awaiting Action) 1 ea QS N/A 07/25/16 08:00 08/24/16 07:59 Docusate Sodium (coLACE CAP) 100 mg BID PO 07/25/16 08:00 08/24/16 08:59 07/28/16 08:14 100 MG Senna (Senokot Tab) 8.6 mg QAM PO 07/25/16 08:00 08/24/16 08:59 07/28/16 08:15 8.6 MG Bisacodyl 5 mg 5 mg DAILY PRN PO 07/24/16 22:30 08/23/16 22:29 07/26/16 20:10 5 MG Sodium Chloride (Nss 1000ml) 1,000 ml @ 100 mls/hr Q10H IV 07/24/16 22:45 08/23/16 22:44 07/28/16 06:41 100 MLS/HR Guaifenesin (Mucinex Contr Rel Tab) 600 mg Q12H PO 07/25/16 09:00 08/24/16 08:59 07/28/16 08:15 600 MG Phenol (Chloraseptic 1.4% [place]) 1 sprays BID PRN MT 07/24/16 22:45 08/23/16 22:44 07/25/16 18:43 1 SPRAYS Ioversol (Optiray 320) 100 ml UD PRN IV 07/24/16 22:45 07/28/16 22:44 Oxybutynin Chloride (Ditropan-Xl Tab) 10 mg BID PO 07/25/16 08:00 08/24/16 07:59 07/28/16 08:15 10 MG Piperacillin Sod/ Tazobactam Sod 1 ea 1 ea UD PRN N/A 07/25/16 10:07 08/24/16 10:06 Heparin Sodium/ Dextrose (Heparin 25,000 Unit/500ml D5W) 500 ml @ 28 mls/hr [id number] PRN IV 07/25/16 10:45 08/24/16 10:44 07/28/16 06:42 28 MLS/HR Enteral Nutritional Formula 1 can 1 can TIDM PO 07/25/16 17:00 08/24/16 16:59 07/28/16 12:00 1 CAN Piperacillin Sod/ Tazobactam Sod/ Dextrose (Zosyn Iv/D5 100ml) 115 ml @ 28.75 mls/ hr Q8H IV 07/27/16 16:00 07/31/16 23:59 07/28/16 08:14 28.75 MLS/HR Miscellaneous Information (Nursing Heparin Iv Rate Change) 1 ea ONE ONCE N/A 07/28/16 13:30 07/28/16 13:31 UNV I & O: 24-Hour Column 07/28/16 08:00 Intake Total 5030 ml Output Total 3150 ml Balance 1880 ml Vital Signs: Date Time Temp Pulse Resp B/P Pulse Ox O2 Delivery O2 Flow Rate FiO2 07/28/16 08:38 Room Air 07/28/16 07:48 36.4 56 18 108/55 93 07/28/16 01:26 Room Air 07/27/16 23:59 36.9 72 20 105/63 95 Room Air 07/27/16 16:00 Room Air 07/27/16 15:39 36.8 69 18 97/62 95 Room Air Laboratory Results: Last 24 Hours Test 07/28/16 05:16 07/28/16 12:17 White Blood Count 6.16 K/uL Red Blood Count 3.08 M/uL Hemoglobin 8.6 g/dL Hematocrit 26.5 % Mean Corpuscular Volume 86.0 fL Mean Corpuscular Hemoglobin 27.9 pg Mean Corpuscular Hemoglobin Concent 32.5 g/dl Platelet Count 297 K/uL Mean Platelet Volume 9.3 fL Neutrophils (%) (Auto) 52.6 % Lymphocytes (%) (Auto) 25.6 % Monocytes (%) (Auto) 15.7 % Eosinophils (%) (Auto) 4.2 % Basophils (%) (Auto) 0.6 % Neutrophils # (Auto) 3.23 K/uL Lymphocytes # (Auto) 1.58 K/uL Monocytes # (Auto) 0.97 K/uL Eosinophils # (Auto) 0.26 K/uL Basophils # (Auto) 0.04 K/uL RDW Standard Deviation 44.5 fL RDW Coefficient of Variation 14.3 % Immature Granulocyte % (Auto) 1.3 % Immature Granulocyte # (Auto) 0.08 K/uL Red Blood Cell Morphology Unremarkable Activated Partial Thromboplast Time 42.2 SECONDS 39.9 SECONDS Partial Thromboplastin Ratio 1.6 1.5 Sodium Level 145 mmol/L Potassium Level 3.9 mmol/L Chloride Level 109 mmol/L Carbon Dioxide Level 26 mmol/L Anion Gap 10.0 mmol/L Blood Urea Nitrogen 5 mg/dl Creatinine 0.46 mg/dl Est Creatinine Clear Calc Drug Dose 190.9 ml/min Estimated GFR () > 150.0 Estimated GFR (Non- 149.4 BUN/Creatinine Ratio 10.9 Random Glucose 91 mg/dl Calcium Level 8.0 mg/dl
[2016-07-28 14:34] VITALS: BP 104/63; PULSE 75; TEMP 38.9; O2SAT 94
[2016-07-28 14:57] VITALS: TEMP 36.6
[2016-07-28 16:05] VITALS: O2SAT 90
--- NOTE | 2016-07-28 18:35 | Progress Note ---
Medicine Progress Note Date & Time of Visit: Jul 28, 2016 at 18:35. Subjective Patient reports feeling a little better overall. No overnight events noted. Still coughing, occasionally productive. Appetite is better overall. No other complaints noted at this time. No bowel issues. Still has fallon cath. Objective Last 8 Hrs Date Time Temp Pulse Resp B/P Pulse Ox O2 Delivery O2 Flow Rate FiO2 07/28/16 14:57 36.6 07/28/16 14:34 38.9 75 20 104/63 94 Physical Exam: GENERAL: Patient is in no acute distress. Appears cachectic HEENT: No acute trauma, normocephalic, mucous membranes moist, no nasal congestion, no scleral icterus. NECK: No stridor, trachea is midline. LUNGS: Diminished bilaterally, coarse rhonchi, breath sounds equal. HEART: Without murmurs gallops or rubs, regular rate and rhythm. ABDOMEN: Soft, nontender, bowel sounds positive EXTREMITIES: No cyanosis or edema NEUROLOGIC: Oriented x 3, no acute motor or sensory deficits, no focal weakness. SKIN: No rash, no jaundice, no diaphoresis. Laboratory Results: Last 24 Hours Test 07/28/16 05:16 07/28/16 12:17 White Blood Count 6.16 K/uL Red Blood Count 3.08 M/uL Hemoglobin 8.6 g/dL Hematocrit 26.5 % Mean Corpuscular Volume 86.0 fL Mean Corpuscular Hemoglobin 27.9 pg Mean Corpuscular Hemoglobin Concent 32.5 g/dl Platelet Count 297 K/uL Mean Platelet Volume 9.3 fL Neutrophils (%) (Auto) 52.6 % Lymphocytes (%) (Auto) 25.6 % Monocytes (%) (Auto) 15.7 % Eosinophils (%) (Auto) 4.2 % Basophils (%) (Auto) 0.6 % Neutrophils # (Auto) 3.23 K/uL Lymphocytes # (Auto) 1.58 K/uL Monocytes # (Auto) 0.97 K/uL Eosinophils # (Auto) 0.26 K/uL Basophils # (Auto) 0.04 K/uL RDW Standard Deviation 44.5 fL RDW Coefficient of Variation 14.3 % Immature Granulocyte % (Auto) 1.3 % Immature Granulocyte # (Auto) 0.08 K/uL Red Blood Cell Morphology Unremarkable Activated Partial Thromboplast Time 42.2 SECONDS 39.9 SECONDS Partial Thromboplastin Ratio 1.6 1.5 Sodium Level 145 mmol/L Potassium Level 3.9 mmol/L Chloride Level 109 mmol/L Carbon Dioxide Level 26 mmol/L Anion Gap 10.0 mmol/L Blood Urea Nitrogen 5 mg/dl Creatinine 0.46 mg/dl Est Creatinine Clear Calc Drug Dose 190.9 ml/min Estimated GFR () > 150.0 Estimated GFR (Non- 149.4 BUN/Creatinine Ratio 10.9 Random Glucose 91 mg/dl Calcium Level 8.0 mg/dl Assessment & Plan CAVITARY LUNG LESION, POSSIBLE LUNG ABSCESS, AND WORKUP TO RULE OUT TB -risk factors include 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 (taken since 2013, [place] controlled) -remains afebrile -sputum culture: MSSA -unclear etiology of pneumonia, appears this is likely from MSSA alone, and work up for concomitant fungal infection in process -blood cultures: pending -AFB sputum negative x1, 2 additional sputums have been ordered to rule out TB -Quantiferon gold negative -Serologic tests for Fungal infection still pending -was on Vanco and Zosyn IV, due to staph being MSSA, vanco was stopped -now off airborne precautions -Aubagio held for now -ID and Pulm consulted, appreciate recommendations BILATERAL LOWER LOBE PULMONARY EMBOLI: -risk factors: underlying illness, sedentary -on IV Heparin -add warfarin when ok with pulmonary ANEMIA: -has low iron, was started on Iron supplement -monitor -no bleeding noted MILD INR ELEVATION: -Liver US: no abnormalities -question if from Aubagio -monitor MULTIPLE SCLEROSIS: -controlled symptoms with Aubagio, but may be causing immunocompromised status -Neurology consulted, recommend to hold Aubagio for now 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 of urethral strictures -intermittently self catheterizes -continue Fallon for now CACHEXIA/PROTEIN CALORIE MALNUTRITION: -likely from underlying infection -Nutrition consulted -BMI: 17.8 Current Inpatient Medications: Current Inpatient Medications Medications (Trade) Dose Ordered Sig/Camilo Route Start Time Stop Time Status Last Admin Dose Admin Acetaminophen (Tylenol Tab) 650 mg Q4H PRN PO 07/24/16 21:45 08/23/16 21:44 07/25/16 20:51 650 MG Al Hydrox/Mg Hydrox/Simethicone (Maalox Max Susp) 15 ml Q4H PRN PO 07/24/16 21:45 08/23/16 21:44 Magnesium Hydroxide (Milk Of Magnesia Susp) 30 ml Q6H PRN PO 07/24/16 21:45 08/23/16 21:44 Polyethylene (Miralax Powder Packet) 17 gm DAILY PRN PO 07/24/16 22:00 08/23/16 21:59 07/26/16 20:10 17 GM Ondansetron HCl (Zofran Inj) 4 mg Q6H PRN IV 07/24/16 21:45 08/23/16 21:44 Amantadine HCl (Symmetrel Cap) 100 mg BID PO 07/25/16 08:00 08/24/16 08:59 07/28/16 08:15 100 MG Bupropion HCl (Wellbutrin-Sr Tab) 100 mg DAILY@1500 PO 07/25/16 15:00 08/24/16 14:59 07/28/16 14:29 100 MG Bupropion HCl (Wellbutrin-Sr Tab) 100 mg QAM PO 07/25/16 08:00 08/24/16 08:59 07/28/16 08:15 100 MG Meclizine HCl (Antivert Tab) 25 mg TID PRN PO 07/24/16 22:30 08/23/16 22:29 Multivitamins (Multivitamin Tab) 1 tab DAILY PO 07/25/16 08:00 08/24/16 08:59 07/28/16 08:15 1 TAB Trazodone HCl (Desyrel Tab) 150 mg HS PO 07/25/16 21:00 08/24/16 20:59 07/28/16 00:09 150 MG Cholecalciferol (Vitamin D Tab) 5,000 inter.unit DAILY PO 07/25/16 08:00 08/24/16 08:59 07/28/16 08:15 5,000 INTER.UNIT Miscellaneous Information (Order Awaiting Action) 1 ea QS N/A 07/25/16 08:00 08/24/16 07:59 Docusate Sodium (coLACE CAP) 100 mg BID PO 07/25/16 08:00 08/24/16 08:59 07/28/16 08:14 100 MG Senna (Senokot Tab) 8.6 mg QAM PO 07/25/16 08:00 08/24/16 08:59 07/28/16 08:15 8.6 MG Bisacodyl 5 mg 5 mg DAILY PRN PO 07/24/16 22:30 08/23/16 22:29 07/26/16 20:10 5 MG Sodium Chloride (Nss 1000ml) 1,000 ml @ 100 mls/hr Q10H IV 07/24/16 22:45 08/23/16 22:44 07/28/16 17:35 100 MLS/HR Guaifenesin (Mucinex Contr Rel Tab) 600 mg Q12H PO 07/25/16 09:00 08/24/16 08:59 07/28/16 08:15 600 MG Phenol (Chloraseptic 1.4% [place]) 1 sprays BID PRN MT 07/24/16 22:45 08/23/16 22:44 07/25/16 18:43 1 SPRAYS Ioversol (Optiray 320) 100 ml UD PRN IV 07/24/16 22:45 07/28/16 22:44 Oxybutynin Chloride (Ditropan-Xl Tab) 10 mg BID PO 07/25/16 08:00 08/24/16 07:59 07/28/16 08:15 10 MG Piperacillin Sod/ Tazobactam Sod 1 ea 1 ea UD PRN N/A 07/25/16 10:07 08/24/16 10:06 Heparin Sodium/ Dextrose (Heparin 25,000 Unit/500ml D5W) 500 ml @ 33 mls/hr [id number] PRN IV 07/25/16 10:45 08/24/16 10:44 07/28/16 18:00 33 MLS/HR Enteral Nutritional Formula 1 can 1 can TIDM PO 07/25/16 17:00 08/24/16 16:59 07/28/16 17:35 1 CAN Piperacillin Sod/ Tazobactam Sod/ Dextrose (Zosyn Iv/D5 100ml) 115 ml @ 28.75 mls/ hr Q8H IV 07/27/16 16:00 07/31/16 23:59 07/28/16 17:35 28.75 MLS/HR
--- NOTE | 2016-07-28 19:51 | Infectious Disease Progress Nt ---
Progress Note Date of Service Jul 28, 2016. Subjective Pt evaluation today including: conversation w/ patient, physical exam, chart review, lab review, review of studies, conversation w/ organizational development consultant, review of inpatient medication list patient with less cough and shortness of breath. No fever. Tolerating antibiotics without apparent difficulty. Cultures growing methicillin sensitive Staph aureus. All Other Systems: Reviewed and Negative Medications Current Inpatient Medications Medications (Trade) Dose Ordered Sig/Camilo Route Start Time Stop Time Status Last Admin Dose Admin Acetaminophen (Tylenol Tab) 650 mg Q4H PRN PO 07/24/16 21:45 08/23/16 21:44 07/25/16 20:51 650 MG Al Hydrox/Mg Hydrox/Simethicone (Maalox Max Susp) 15 ml Q4H PRN PO 07/24/16 21:45 08/23/16 21:44 Magnesium Hydroxide (Milk Of Magnesia Susp) 30 ml Q6H PRN PO 07/24/16 21:45 08/23/16 21:44 Polyethylene (Miralax Powder Packet) 17 gm DAILY PRN PO 07/24/16 22:00 08/23/16 21:59 07/26/16 20:10 17 GM Ondansetron HCl (Zofran Inj) 4 mg Q6H PRN IV 07/24/16 21:45 08/23/16 21:44 Amantadine HCl (Symmetrel Cap) 100 mg BID PO 07/25/16 08:00 08/24/16 08:59 07/28/16 08:15 100 MG Bupropion HCl (Wellbutrin-Sr Tab) 100 mg DAILY@1500 PO 07/25/16 15:00 08/24/16 14:59 07/28/16 14:29 100 MG Bupropion HCl (Wellbutrin-Sr Tab) 100 mg QAM PO 07/25/16 08:00 08/24/16 08:59 07/28/16 08:15 100 MG Meclizine HCl (Antivert Tab) 25 mg TID PRN PO 07/24/16 22:30 08/23/16 22:29 Multivitamins (Multivitamin Tab) 1 tab DAILY PO 07/25/16 08:00 08/24/16 08:59 07/28/16 08:15 1 TAB Trazodone HCl (Desyrel Tab) 150 mg HS PO 07/25/16 21:00 08/24/16 20:59 07/28/16 00:09 150 MG Cholecalciferol (Vitamin D Tab) 5,000 inter.unit DAILY PO 07/25/16 08:00 08/24/16 08:59 07/28/16 08:15 5,000 INTER.UNIT Miscellaneous Information (Order Awaiting Action) 1 ea QS N/A 07/25/16 08:00 08/24/16 07:59 Docusate Sodium (coLACE CAP) 100 mg BID PO 07/25/16 08:00 08/24/16 08:59 07/28/16 08:14 100 MG Senna (Senokot Tab) 8.6 mg QAM PO 07/25/16 08:00 08/24/16 08:59 07/28/16 08:15 8.6 MG Bisacodyl 5 mg 5 mg DAILY PRN PO 07/24/16 22:30 08/23/16 22:29 07/26/16 20:10 5 MG Sodium Chloride (Nss 1000ml) 1,000 ml @ 100 mls/hr Q10H IV 07/24/16 22:45 08/23/16 22:44 07/28/16 17:35 100 MLS/HR Guaifenesin (Mucinex Contr Rel Tab) 600 mg Q12H PO 07/25/16 09:00 08/24/16 08:59 07/28/16 08:15 600 MG Phenol (Chloraseptic 1.4% [place]) 1 sprays BID PRN MT 07/24/16 22:45 08/23/16 22:44 07/25/16 18:43 1 SPRAYS Ioversol (Optiray 320) 100 ml UD PRN IV 07/24/16 22:45 07/28/16 22:44 Oxybutynin Chloride (Ditropan-Xl Tab) 10 mg BID PO 07/25/16 08:00 08/24/16 07:59 07/28/16 08:15 10 MG Piperacillin Sod/ Tazobactam Sod 1 ea 1 ea UD PRN N/A 07/25/16 10:07 08/24/16 10:06 Heparin Sodium/ Dextrose (Heparin 25,000 Unit/500ml D5W) 500 ml @ 33 mls/hr [id number] PRN IV 1/8/17 10:45 08/24/16 10:44 07/28/16 18:00 33 MLS/HR Enteral Nutritional Formula 1 can 1 can TIDM PO 07/25/16 17:00 08/24/16 16:59 07/28/16 17:35 1 CAN Piperacillin Sod/ Tazobactam Sod/ Dextrose (Zosyn Iv/D5 100ml) 115 ml @ 28.75 mls/ hr Q8H IV 07/27/16 16:00 07/31/16 23:59 07/28/16 17:35 28.75 MLS/HR Objective Vital Signs Date Time Temp Pulse Resp B/P Pulse Ox O2 Delivery O2 Flow Rate FiO2 07/28/16 16:05 90 Room Air 07/28/16 14:57 36.6 07/28/16 14:34 38.9 75 20 104/63 94 07/28/16 08:38 Room Air 07/28/16 07:48 36.4 56 18 108/55 93 07/28/16 01:26 Room Air 07/27/16 23:59 36.9 72 20 105/63 95 Room Air Physical Exam General Appearance: WD/WN, no apparent distress Eyes: normal inspection, sclerae normal ENT: normal ENT inspection, hearing grossly normal, pharynx normal Neck: supple, no adenopathy, trachea midline Respiratory/Chest: chest non-tender, no respiratory distress, no accessory muscle use, + rhonchi Cardiovascular: regular rate, rhythm, no gallop, no murmur Abdomen: normal bowel sounds, non tender, soft, no organomegaly Extremities: non-tender, no calf tenderness Neurologic/Psychiatric: alert, oriented x 3 Skin: normal color, warm/dry, no rash Lymphatic: no adenopathy Laboratory Results Last 24 Hours Test 07/28/16 05:16 07/28/16 12:17 White Blood Count 6.16 K/uL Red Blood Count 3.08 M/uL Hemoglobin 8.6 g/dL Hematocrit 26.5 % Mean Corpuscular Volume 86.0 fL Mean Corpuscular Hemoglobin 27.9 pg Mean Corpuscular Hemoglobin Concent 32.5 g/dl Platelet Count 297 K/uL Mean Platelet Volume 9.3 fL Neutrophils (%) (Auto) 52.6 % Lymphocytes (%) (Auto) 25.6 % Monocytes (%) (Auto) 15.7 % Eosinophils (%) (Auto) 4.2 % Basophils (%) (Auto) 0.6 % Neutrophils # (Auto) 3.23 K/uL Lymphocytes # (Auto) 1.58 K/uL Monocytes # (Auto) 0.97 K/uL Eosinophils # (Auto) 0.26 K/uL Basophils # (Auto) 0.04 K/uL RDW Standard Deviation 44.5 fL RDW Coefficient of Variation 14.3 % Immature Granulocyte % (Auto) 1.3 % Immature Granulocyte # (Auto) 0.08 K/uL Red Blood Cell Morphology Unremarkable Activated Partial Thromboplast Time 42.2 SECONDS 39.9 SECONDS Partial Thromboplastin Ratio 1.6 1.5 Sodium Level 145 mmol/L Potassium Level 3.9 mmol/L Chloride Level 109 mmol/L Carbon Dioxide Level 26 mmol/L Anion Gap 10.0 mmol/L Blood Urea Nitrogen 5 mg/dl Creatinine 0.46 mg/dl Est Creatinine Clear Calc Drug Dose 190.9 ml/min Estimated GFR () > 150.0 Estimated GFR (Non- 149.4 BUN/Creatinine Ratio 10.9 Random Glucose 91 mg/dl Calcium Level 8.0 mg/dl Assessment and Plan right upper lobe cavitary lesion in patient on immunosuppressive therapy for multiple sclerosis. sputum cultures growing methicillin sensitive Staph aureus , certainly could be cause cavitary lesion. Patient currently on IV Zosyn, likely can transition to oral antibiotics such as with dicloxacillin 500 mg q.i.d. in next day or so. Will discuss further with all involved.
[2016-07-28 21:33] LABS: PARTIAL THROMBOPLASTIN RATIO 2.3
[2016-07-28 23:51] VITALS: BP 102/63; PULSE 65; TEMP 36.9; O2SAT 96
[2016-07-29] MEDS: PIPERACILL/TAZOBAC IV 3.375 GM in DEXTROSE 5% 100ML 100 ML IV SCH ×3 (00:12→16:46)
[2016-07-29] MEDS: SODIUM CHLORIDE 0.9% 1000ML 1,000 ML IV SCH ×3 (03:14→21:51)
[2016-07-29 06:18] LABS: BASO % 0.7 %; BASO ABS # 0.04 K/uL (0-0.2); COMPLETE YES; HEMATOCRIT 27.7 % (42-52); IG% 1.7 %; LYMPH ABS # 1.67 K/uL (1.2-3.4); MEAN CELL VOLUME 88.5 fL (80-100); MEAN CORPUSCULAR HEMOGLOBIN 29.4 pg (25-34); MEAN CORPUSCULAR HGB CONC 33.2 g/dl (32-36); MEAN PLATELET VOLUME 9.3 fL (7.4-10.4); MONO % 16.5 %; NEUT % 47.1 %; PLATELET COUNT 294 K/uL (130-400); RED BLOOD COUNT 3.13 M/uL (4.7-6.1); WHITE BLOOD COUNT 5.75 K/uL (4.8-10.8)
[2016-07-29 06:36] LABS: PARTIAL THROMBOPLASTIN RATIO 2.1
[2016-07-29 06:42] LABS: BLOOD UREA NITROGEN 4 mg/dl (7-18); BUN/CREATININE RATIO 7.3 (10-20); CALCIUM 8.2 mg/dl (8.5-10.1); CARBON DIOXIDE 29 mmol/L (21-32); CHLORIDE 109 mmol/L (98-107); CREATININE 0.48 mg/dl (0.60-1.40); GLUCOSE 79 mg/dl (70-99); POTASSIUM 3.9 mmol/L (3.5-5.1); SODIUM 145 mmol/L (136-145)
[2016-07-29 07:42] VITALS: BP 99/63; PULSE 60; TEMP 37; O2SAT 98
[2016-07-29] MEDS: OXYBUTYNIN CHLORIDE 5 MG TABCR PO SCH ×2 (07:52→21:47)
[2016-07-29] MEDS: BOOST PLUS VANILLA PO SCH ×6 (07:52→16:46)
[2016-07-29] MEDS: DOCUSATE SODIUM 100 MG CAP PO SCH ×2 (07:52→21:47)
[2016-07-29] MEDS: CHOLECALCIFEROL 1000 INTER.UNIT TAB PO SCH (07:53)
[2016-07-29] MEDS: MULTIVITAMIN TAB PO SCH (07:53)
[2016-07-29] MEDS: AMANTADINE HCL 100 MG CAP PO SCH ×2 (07:53→21:51)
[2016-07-29] MEDS: SENNA 8.6 MG TAB PO SCH (07:53)
[2016-07-29] MEDS: BuPROPion SR 100 MG TABCR PO SCH ×2 (07:53→14:12)
[2016-07-29] MEDS: GUAIFENESIN 600 MG TABCR PO SCH ×2 (07:54→21:50)
[2016-07-29] MEDS: HEPARIN 25,000 UNIT/500ML D5W 500 ML IV PRN (09:31)
--- NOTE | 2016-07-29 09:48 | Pulmonology Progress Note ---
Pulmonary Progress Note Date of Service Jul 29, 2016. Attending Nadira Subjective Continued cough producive of yellow sputum. No hemoptysis. Cough does not wake from sleep. + discomfort with deep breaths. No Chest pain. Continues poor PO intake but making efforts to drink liquids. Objective 31-yo male hospital day # 6 admitted with large RUL cavitary lung lesion/MSSA sputum, and small bilateral subsegmental pulmonary emboli. PMHx: Multiple sclerosis (Dx 24-yo), neurogenic bladder, malnutrition. 31-yo male admitted to [facility] 07/24/16 with several week history of URI, cough, dyspnea and weakness. CXR 07/24/16 suggestive of RUL cavitary lesion. CTA: 07/24/16 : few segmental bilateral pulmonary emboli, 10cm Cavitary lesion with air-fluid level in the RUL with patchy ground glass bilaterally. Mild right hilar lymphadenopathy. Labs notable for leukocytosis and elevated LFTs and UTI. ID consulted and patient began empiric vancomycin, levofloxacin, and pip-tazo. Echocardiogram 07/26/16: EF 50-55%, mild RV dilation, NO evidence of mass or valvular vegetation. Today: - 90-98%: RA - Afebrile, HD stable - WBC: 5.75, Hgb/Hct: 9.2/27.7, plts: 294, Cr: 0.48 - Pip-tazo day # - Fungitell: negative - Coccidioides, histoplasma, TB: neg - Influenza: neg - Sputum 07/25: MSSA, no fungal or AFB noted - UA: +, no culture Physical Exam: Constitutional: Chronically ill / pale completion, young cachectic male lying in hospital bed working on lap-top computer. No acute distress. Head: + facial symmetry, EOMi, PERRLA, pale conjunctiva Respiratory: Non-labored respirations. Rales right base. No wheeze or rhonchi. CV: RRR, no MRG. Warm and perfused peripherally Abdomen: Soft, active bowel sounds : fallon catheter draining yellow translucent urine MSK/Extremiteis: Moving and developed symmetrically. Muscle wasting. NO peripheral edema. Neurologic: A&O x 3. Good data recall. Appropriate affect. Assessment & Plan 31-year-old immunosuppressives male with right upper lobe cavitating lesion, sputum + MSSA and bilateral PE 1. RUL cavitary lesion with sputum + MSSA: - Antibiotic coverage per ID - Consider repeat UA with culture post cath removal prior to discharge - Swallow evaluation - Flutter Valve TID to aid in expectoration - Follow-up with Pulmonary in [place] with plan to repeat non-contrasted CT of the chest post completion of antibiotic, he may need excision by thoracic surgery depending on clinical and radiographic response. 2. Bilateral provoked PE: - Continue anticoagulation - Heparin Gtt then would transition to long-term AC for x 3-months - minimum per anticoagulation clinic Pulm to sign off at this time but will follow patient post discharge or as needed this hospital stay Case discussed with Dr. Waddell Data Medications: Current Inpatient Medications Medications (Trade) Dose Ordered Sig/Camilo Route Start Time Stop Time Status Last Admin Dose Admin Acetaminophen (Tylenol Tab) 650 mg Q4H PRN PO 07/24/16 21:45 08/23/16 21:44 07/25/16 20:51 650 MG Al Hydrox/Mg Hydrox/Simethicone (Maalox Max Susp) 15 ml Q4H PRN PO 07/24/16 21:45 08/23/16 21:44 Magnesium Hydroxide (Milk Of Magnesia Susp) 30 ml Q6H PRN PO 07/24/16 21:45 08/23/16 21:44 Polyethylene (Miralax Powder Packet) 17 gm DAILY PRN PO 07/24/16 22:00 08/23/16 21:59 07/26/16 20:10 17 GM Ondansetron HCl (Zofran Inj) 4 mg Q6H PRN IV 07/24/16 21:45 08/23/16 21:44 Amantadine HCl (Symmetrel Cap) 100 mg BID PO 07/25/16 08:00 08/24/16 08:59 07/29/16 07:53 100 MG Bupropion HCl (Wellbutrin-Sr Tab) 100 mg DAILY@1500 PO 07/25/16 15:00 08/24/16 14:59 07/28/16 14:29 100 MG Bupropion HCl (Wellbutrin-Sr Tab) 100 mg QAM PO 07/25/16 08:00 08/24/16 08:59 07/29/16 07:53 100 MG Meclizine HCl (Antivert Tab) 25 mg TID PRN PO 07/24/16 22:30 08/23/16 22:29 Multivitamins (Multivitamin Tab) 1 tab DAILY PO 07/25/16 08:00 08/24/16 08:59 07/29/16 07:53 1 TAB Trazodone HCl (Desyrel Tab) 150 mg HS PO 07/25/16 21:00 08/24/16 20:59 07/28/16 22:13 150 MG Cholecalciferol (Vitamin D Tab) 5,000 inter.unit DAILY PO 07/25/16 08:00 08/24/16 08:59 07/29/16 07:53 5,000 INTER.UNIT Miscellaneous Information (Order Awaiting Action) 1 ea QS N/A 07/25/16 08:00 08/24/16 07:59 Docusate Sodium (coLACE CAP) 100 mg BID PO 07/25/16 08:00 08/24/16 08:59 07/29/16 07:52 100 MG Senna (Senokot Tab) 8.6 mg QAM PO 07/25/16 08:00 08/24/16 08:59 07/29/16 07:53 8.6 MG Bisacodyl 5 mg 5 mg DAILY PRN PO 07/24/16 22:30 08/23/16 22:29 07/26/16 20:10 5 MG Sodium Chloride (Nss 1000ml) 1,000 ml @ 100 mls/hr Q10H IV 07/24/16 22:45 08/23/16 22:44 07/29/16 03:14 100 MLS/HR Guaifenesin (Mucinex Contr Rel Tab) 600 mg Q12H PO 07/25/16 09:00 08/24/16 08:59 07/29/16 07:54 600 MG Phenol (Chloraseptic 1.4% [place]) 1 sprays BID PRN MT 07/24/16 22:45 08/23/16 22:44 07/25/16 18:43 1 SPRAYS Oxybutynin Chloride (Ditropan-Xl Tab) 10 mg BID PO 07/25/16 08:00 08/24/16 07:59 07/29/16 07:52 10 MG Piperacillin Sod/ Tazobactam Sod 1 ea 1 ea UD PRN N/A 07/25/16 10:07 08/24/16 10:06 Heparin Sodium/ Dextrose (Heparin 25,000 Unit/500ml D5W) 500 ml @ 33 mls/hr [id number] PRN IV 07/25/16 10:45 08/24/16 10:44 07/29/16 09:31 33 MLS/HR Enteral Nutritional Formula 1 can 1 can TIDM PO 07/25/16 17:00 08/24/16 16:59 07/29/16 07:52 1 CAN Piperacillin Sod/ Tazobactam Sod/ Dextrose (Zosyn Iv/D5 100ml) 115 ml @ 28.75 mls/ hr Q8H IV 07/27/16 16:00 07/31/16 23:59 07/29/16 07:52 28.75 MLS/HR I & O: 24-Hour Column 07/29/16 07:59 Intake Total 4512 ml Output Total 5950 ml Balance -1438 ml Vital Signs: Date Time Temp Pulse Resp B/P Pulse Ox O2 Delivery O2 Flow Rate FiO2 07/29/16 07:42 37.0 60 18 99/63 98 Room Air 07/29/16 00:00 Room Air 07/28/16 23:51 36.9 65 16 102/63 96 Room Air 07/28/16 16:05 90 Room Air 07/28/16 14:57 36.6 07/28/16 14:34 38.9 75 20 104/63 94 Laboratory Results: Last 24 Hours Test 07/28/16 12:17 07/28/16 20:45 07/29/16 05:20 Activated Partial Thromboplast Time 39.9 SECONDS 59.2 SECONDS 54.3 SECONDS Partial Thromboplastin Ratio 1.5 2.3 2.1 White Blood Count 5.75 K/uL Red Blood Count 3.13 M/uL Hemoglobin 9.2 g/dL Hematocrit 27.7 % Mean Corpuscular Volume 88.5 fL Mean Corpuscular Hemoglobin 29.4 pg Mean Corpuscular Hemoglobin Concent 33.2 g/dl Platelet Count 294 K/uL Mean Platelet Volume 9.3 fL Neutrophils (%) (Auto) 47.1 % Lymphocytes (%) (Auto) 29.0 % Monocytes (%) (Auto) 16.5 % Eosinophils (%) (Auto) 5.0 % Basophils (%) (Auto) 0.7 % Neutrophils # (Auto) 2.70 K/uL Lymphocytes # (Auto) 1.67 K/uL Monocytes # (Auto) 0.95 K/uL Eosinophils # (Auto) 0.29 K/uL Basophils # (Auto) 0.04 K/uL RDW Standard Deviation 46.7 fL RDW Coefficient of Variation 14.7 % Immature Granulocyte % (Auto) 1.7 % Immature Granulocyte # (Auto) 0.10 K/uL Sodium Level 145 mmol/L Potassium Level 3.9 mmol/L Chloride Level 109 mmol/L Carbon Dioxide Level 29 mmol/L Anion Gap 7.0 mmol/L Blood Urea Nitrogen 4 mg/dl Creatinine 0.48 mg/dl Est Creatinine Clear Calc Drug Dose 182.9 ml/min Estimated GFR () > 150.0 Estimated GFR (Non- 146.8 BUN/Creatinine Ratio 7.3 Random Glucose 79 mg/dl Calcium Level 8.2 mg/dl
[2016-07-29 15:39] VITALS: BP 98/64; PULSE 68; TEMP 37; O2SAT 98
[2016-07-29 16:15] VITALS: O2SAT 90
--- NOTE | 2016-07-29 19:46 | Progress Note ---
Medicine Progress Note Date & Time of Visit: Jul 29, 2016 at 19:46. Subjective Patient reports feeling better overall, states he is less weak and coughing is less frequent and less productive but still present. Appetite is slowly improving. No overnight events noted. No new complaints. Objective Last 8 Hrs Date Time Temp Pulse Resp B/P Pulse Ox O2 Delivery O2 Flow Rate FiO2 07/29/16 15:39 37.0 68 18 98/64 98 Room Air Physical Exam: GENERAL: Patient is in no acute distress. Appears cachectic HEENT: No acute trauma, normocephalic, mucous membranes moist, no nasal congestion, no scleral icterus. NECK: No stridor, trachea is midline. LUNGS: Diminished bilaterally, few rhonchi, breath sounds equal. HEART: Without murmurs gallops or rubs, regular rate and rhythm. ABDOMEN: Soft, nontender, bowel sounds positive EXTREMITIES: No cyanosis or edema NEUROLOGIC: Oriented x 3, no acute motor or sensory deficits, no focal weakness. SKIN: No rash, no jaundice, no diaphoresis. Laboratory Results: Last 24 Hours Test 07/28/16 20:45 07/29/16 05:20 Activated Partial Thromboplast Time 59.2 SECONDS 54.3 SECONDS Partial Thromboplastin Ratio 2.3 2.1 White Blood Count 5.75 K/uL Red Blood Count 3.13 M/uL Hemoglobin 9.2 g/dL Hematocrit 27.7 % Mean Corpuscular Volume 88.5 fL Mean Corpuscular Hemoglobin 29.4 pg Mean Corpuscular Hemoglobin Concent 33.2 g/dl Platelet Count 294 K/uL Mean Platelet Volume 9.3 fL Neutrophils (%) (Auto) 47.1 % Lymphocytes (%) (Auto) 29.0 % Monocytes (%) (Auto) 16.5 % Eosinophils (%) (Auto) 5.0 % Basophils (%) (Auto) 0.7 % Neutrophils # (Auto) 2.70 K/uL Lymphocytes # (Auto) 1.67 K/uL Monocytes # (Auto) 0.95 K/uL Eosinophils # (Auto) 0.29 K/uL Basophils # (Auto) 0.04 K/uL RDW Standard Deviation 46.7 fL RDW Coefficient of Variation 14.7 % Immature Granulocyte % (Auto) 1.7 % Immature Granulocyte # (Auto) 0.10 K/uL Sodium Level 145 mmol/L Potassium Level 3.9 mmol/L Chloride Level 109 mmol/L Carbon Dioxide Level 29 mmol/L Anion Gap 7.0 mmol/L Blood Urea Nitrogen 4 mg/dl Creatinine 0.48 mg/dl Est Creatinine Clear Calc Drug Dose 182.9 ml/min Estimated GFR () > 150.0 Estimated GFR (Non- 146.8 BUN/Creatinine Ratio 7.3 Random Glucose 79 mg/dl Calcium Level 8.2 mg/dl Date/Time Source Procedure Growth Status 07/29/16 17:53 Sputum Expectorated Sputum Acid Fast Stain Pending Received 07/29/16 17:53 Sputum Expectorated Sputum Mycobacterial Culture Pending Received 07/29/16 17:52 Sputum Expectorated Sputum Acid Fast Stain Pending Chas Batch 07/29/16 17:52 Sputum Expectorated Sputum Mycobacterial Culture Pending Chas Batch Assessment & Plan CAVITARY LUNG LESION, POSSIBLE LUNG ABSCESS, AND WORKUP TO RULE OUT TB -risk factors include 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 (taken since 2013, [place] controlled) -remains afebrile -sputum culture: MSSA -unclear etiology of pneumonia, appears this is likely from MSSA alone, and work up for concomitant fungal infection in process -blood cultures: negative thus far -AFB sputum negative x1, 2 additional sputums have been ordered to rule out TB -Quantiferon gold negative -Serologic tests for Fungal infection still pending -was on Vanco and Zosyn IV, due to staph being MSSA, vanco was stopped -now off airborne precautions -Aubagio held for now -ID and Pulm consulted, appreciate recommendations BILATERAL LOWER LOBE PULMONARY EMBOLI: -risk factors: underlying illness, sedentary -on IV Heparin -per Pulm recs, should discuss anticoagulation choices with [facility] to determine which agent would be most appropriate ANEMIA: -has low iron, was started on Iron supplement -monitor -no bleeding noted MILD INR ELEVATION: -Liver US: no abnormalities -question if from Aubagio -monitor MULTIPLE SCLEROSIS: -controlled symptoms with Aubagio, but may be causing immunocompromised status -Neurology consulted, recommend to hold Aubagio for now 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 of urethral strictures -intermittently self catheterizes -continue Andino for now CACHEXIA/PROTEIN CALORIE MALNUTRITION: -likely from underlying infection -Nutrition consulted -BMI: 17.8 Current Inpatient Medications: Current Inpatient Medications Medications (Trade) Dose Ordered Sig/Camilo Route Start Time Stop Time Status Last Admin Dose Admin Acetaminophen (Tylenol Tab) 650 mg Q4H PRN PO 07/24/16 21:45 08/23/16 21:44 07/25/16 20:51 650 MG Al Hydrox/Mg Hydrox/Simethicone (Maalox Max Susp) 15 ml Q4H PRN PO 07/24/16 21:45 08/23/16 21:44 Magnesium Hydroxide (Milk Of Magnesia Susp) 30 ml Q6H PRN PO 07/24/16 21:45 08/23/16 21:44 Polyethylene (Miralax Powder Packet) 17 gm DAILY PRN PO 07/24/16 22:00 08/23/16 21:59 07/26/16 20:10 17 GM Ondansetron HCl (Zofran Inj) 4 mg Q6H PRN IV 07/24/16 21:45 08/23/16 21:44 Amantadine HCl (Symmetrel Cap) 100 mg BID PO 07/25/16 08:00 08/24/16 08:59 07/29/16 07:53 100 MG Bupropion HCl (Wellbutrin-Sr Tab) 100 mg DAILY@1500 PO 07/25/16 15:00 08/24/16 14:59 07/29/16 14:12 100 MG Bupropion HCl (Wellbutrin-Sr Tab) 100 mg QAM PO 07/25/16 08:00 08/24/16 08:59 07/29/16 07:53 100 MG Meclizine HCl (Antivert Tab) 25 mg TID PRN PO 07/24/16 22:30 08/23/16 22:29 Multivitamins (Multivitamin Tab) 1 tab DAILY PO 07/25/16 08:00 08/24/16 08:59 07/29/16 07:53 1 TAB Trazodone HCl (Desyrel Tab) 150 mg HS PO 07/25/16 21:00 08/24/16 20:59 07/28/16 22:13 150 MG Cholecalciferol (Vitamin D Tab) 5,000 inter.unit DAILY PO 07/25/16 08:00 08/24/16 08:59 07/29/16 07:53 5,000 INTER.UNIT Miscellaneous Information (Order Awaiting Action) 1 ea QS N/A 07/25/16 08:00 08/24/16 07:59 Docusate Sodium (coLACE CAP) 100 mg BID PO 07/25/16 08:00 08/24/16 08:59 07/29/16 07:52 100 MG Senna (Senokot Tab) 8.6 mg QAM PO 07/25/16 08:00 08/24/16 08:59 07/29/16 07:53 8.6 MG Bisacodyl 5 mg 5 mg DAILY PRN PO 07/24/16 22:30 08/23/16 22:29 07/26/16 20:10 5 MG Sodium Chloride (Nss 1000ml) 1,000 ml @ 100 mls/hr Q10H IV 07/24/16 22:45 08/23/16 22:44 07/29/16 12:23 100 MLS/HR Guaifenesin (Mucinex Contr Rel Tab) 600 mg Q12H PO 07/25/16 09:00 08/24/16 08:59 07/29/16 07:54 600 MG Phenol (Chloraseptic 1.4% [place]) 1 sprays BID PRN MT 07/24/16 22:45 08/23/16 22:44 07/25/16 18:43 1 SPRAYS Oxybutynin Chloride (Ditropan-Xl Tab) 10 mg BID PO 07/25/16 08:00 08/24/16 07:59 07/29/16 07:52 10 MG Piperacillin Sod/ Tazobactam Sod 1 ea 1 ea UD PRN N/A 07/25/16 10:07 08/24/16 10:06 Heparin Sodium/ Dextrose (Heparin 25,000 Unit/500ml D5W) 500 ml @ 33 mls/hr [id number] PRN IV 07/25/16 10:45 08/24/16 10:44 07/29/16 09:31 33 MLS/HR Enteral Nutritional Formula 1 can 1 can TIDM PO 07/25/16 17:00 08/24/16 16:59 07/29/16 16:46 1 CAN Piperacillin Sod/ Tazobactam Sod/ Dextrose (Zosyn Iv/D5 100ml) 115 ml @ 28.75 mls/ hr Q8H IV 07/27/16 16:00 1/14/17 23:59 07/29/16 16:46 28.75 MLS/HR
--- NOTE | 2016-07-29 20:10 | Infectious Disease Progress Nt ---
Progress Note Date of Service Jul 29, 2016. Subjective Pt evaluation today including: conversation w/ patient, physical exam, chart review, lab review, review of studies, conversation w/ senior professional services consultant, review of inpatient medication list Overall patient feeling better. Cough is less, still with purulent sputum. No fever. No other new complaints. All Other Systems: Reviewed and Negative Medications Current Inpatient Medications Medications (Trade) Dose Ordered Sig/Camilo Route Start Time Stop Time Status Last Admin Dose Admin Acetaminophen (Tylenol Tab) 650 mg Q4H PRN PO 07/24/16 21:45 08/23/16 21:44 07/25/16 20:51 650 MG Al Hydrox/Mg Hydrox/Simethicone (Maalox Max Susp) 15 ml Q4H PRN PO 07/24/16 21:45 08/23/16 21:44 Magnesium Hydroxide (Milk Of Magnesia Susp) 30 ml Q6H PRN PO 07/24/16 21:45 08/23/16 21:44 Polyethylene (Miralax Powder Packet) 17 gm DAILY PRN PO 07/24/16 22:00 08/23/16 21:59 07/26/16 20:10 17 GM Ondansetron HCl (Zofran Inj) 4 mg Q6H PRN IV 07/24/16 21:45 08/23/16 21:44 Amantadine HCl (Symmetrel Cap) 100 mg BID PO 07/25/16 08:00 08/24/16 08:59 07/29/16 07:53 100 MG Bupropion HCl (Wellbutrin-Sr Tab) 100 mg DAILY@1500 PO 07/25/16 15:00 08/24/16 14:59 07/29/16 14:12 100 MG Bupropion HCl (Wellbutrin-Sr Tab) 100 mg QAM PO 07/25/16 08:00 08/24/16 08:59 07/29/16 07:53 100 MG Meclizine HCl (Antivert Tab) 25 mg TID PRN PO 07/24/16 22:30 08/23/16 22:29 Multivitamins (Multivitamin Tab) 1 tab DAILY PO 07/25/16 08:00 08/24/16 08:59 07/29/16 07:53 1 TAB Trazodone HCl (Desyrel Tab) 150 mg HS PO 07/25/16 21:00 08/24/16 20:59 07/28/16 22:13 150 MG Cholecalciferol (Vitamin D Tab) 5,000 inter.unit DAILY PO 07/25/16 08:00 08/24/16 08:59 07/29/16 07:53 5,000 INTER.UNIT Miscellaneous Information (Order Awaiting Action) 1 ea QS N/A 07/25/16 08:00 08/24/16 07:59 Docusate Sodium (coLACE CAP) 100 mg BID PO 07/25/16 08:00 08/24/16 08:59 07/29/16 07:52 100 MG Senna (Senokot Tab) 8.6 mg QAM PO 07/25/16 08:00 08/24/16 08:59 07/29/16 07:53 8.6 MG Bisacodyl 5 mg 5 mg DAILY PRN PO 07/24/16 22:30 08/23/16 22:29 07/26/16 20:10 5 MG Sodium Chloride (Nss 1000ml) 1,000 ml @ 100 mls/hr Q10H IV 07/24/16 22:45 08/23/16 22:44 07/29/16 12:23 100 MLS/HR Guaifenesin (Mucinex Contr Rel Tab) 600 mg Q12H PO 07/25/16 09:00 08/24/16 08:59 07/29/16 07:54 600 MG Phenol (Chloraseptic 1.4% [place]) 1 sprays BID PRN MT 07/24/16 22:45 08/23/16 22:44 07/25/16 18:43 1 SPRAYS Oxybutynin Chloride (Ditropan-Xl Tab) 10 mg BID PO 07/25/16 08:00 08/24/16 07:59 07/29/16 07:52 10 MG Piperacillin Sod/ Tazobactam Sod 1 ea 1 ea UD PRN N/A 07/25/16 10:07 08/24/16 10:06 Heparin Sodium/ Dextrose (Heparin 25,000 Unit/500ml D5W) 500 ml @ 33 mls/hr [id number] PRN IV 07/25/16 10:45 08/24/16 10:44 07/29/16 09:31 33 MLS/HR Enteral Nutritional Formula 1 can 1 can TIDM PO 07/25/16 17:00 08/24/16 16:59 07/29/16 16:46 1 CAN Piperacillin Sod/ Tazobactam Sod/ Dextrose (Zosyn Iv/D5 100ml) 115 ml @ 28.75 mls/ hr Q8H IV 07/27/16 16:00 07/31/16 23:59 07/29/16 16:46 28.75 MLS/HR Objective Vital Signs Date Time Temp Pulse Resp B/P Pulse Ox O2 Delivery O2 Flow Rate FiO2 07/29/16 15:39 37.0 68 18 98/64 98 Room Air 07/29/16 10:13 Room Air 07/29/16 07:42 37.0 60 18 99/63 98 Room Air 07/29/16 00:00 Room Air 07/28/16 23:51 36.9 65 16 102/63 96 Room Air Physical Exam General Appearance: WD/WN, no apparent distress Eyes: normal inspection, sclerae normal ENT: normal ENT inspection, pharynx normal Neck: supple, no adenopathy, trachea midline Respiratory/Chest: chest non-tender, lungs clear, normal breath sounds, no respiratory distress Cardiovascular: regular rate, rhythm, no gallop, no murmur Abdomen: normal bowel sounds, non tender, soft, no organomegaly Extremities: non-tender, normal capillary refill Neurologic/Psychiatric: alert, oriented x 3 Skin: normal color, no rash Lymphatic: no adenopathy Laboratory Results Last 24 Hours Test 07/28/16 20:45 07/29/16 05:20 Activated Partial Thromboplast Time 59.2 SECONDS 54.3 SECONDS Partial Thromboplastin Ratio 2.3 2.1 White Blood Count 5.75 K/uL Red Blood Count 3.13 M/uL Hemoglobin 9.2 g/dL Hematocrit 27.7 % Mean Corpuscular Volume 88.5 fL Mean Corpuscular Hemoglobin 29.4 pg Mean Corpuscular Hemoglobin Concent 33.2 g/dl Platelet Count 294 K/uL Mean Platelet Volume 9.3 fL Neutrophils (%) (Auto) 47.1 % Lymphocytes (%) (Auto) 29.0 % Monocytes (%) (Auto) 16.5 % Eosinophils (%) (Auto) 5.0 % Basophils (%) (Auto) 0.7 % Neutrophils # (Auto) 2.70 K/uL Lymphocytes # (Auto) 1.67 K/uL Monocytes # (Auto) 0.95 K/uL Eosinophils # (Auto) 0.29 K/uL Basophils # (Auto) 0.04 K/uL RDW Standard Deviation 46.7 fL RDW Coefficient of Variation 14.7 % Immature Granulocyte % (Auto) 1.7 % Immature Granulocyte # (Auto) 0.10 K/uL Sodium Level 145 mmol/L Potassium Level 3.9 mmol/L Chloride Level 109 mmol/L Carbon Dioxide Level 29 mmol/L Anion Gap 7.0 mmol/L Blood Urea Nitrogen 4 mg/dl Creatinine 0.48 mg/dl Est Creatinine Clear Calc Drug Dose 182.9 ml/min Estimated GFR () > 150.0 Estimated GFR (Non- 146.8 BUN/Creatinine Ratio 7.3 Random Glucose 79 mg/dl Calcium Level 8.2 mg/dl Assessment and Plan right upper lobe cavitary lesion in patient on immunosuppressive therapy for multiple sclerosis. sputum cultures growing methicillin sensitive Staph aureus , certainly could be cause cavitary lesion. Patient currently on IV Zosyn, likely can transition to oral antibiotics such as with dicloxacillin 500 mg q.i.d. i. Will discuss.
[2016-07-29] MEDS: TRAZODONE HCL 50 MG TAB PO SCH (21:50)
[2016-07-30 00:05] VITALS: BP 95/62; PULSE 61; TEMP 36.7; O2SAT 98
[2016-07-30] MEDS: PIPERACILL/TAZOBAC IV 3.375 GM in DEXTROSE 5% 100ML 100 ML IV SCH ×3 (00:59→15:48)
[2016-07-30] MEDS: HEPARIN 25,000 UNIT/500ML D5W 500 ML IV PRN (01:00)
[2016-07-30 06:33] LABS: BASO ABS # 0.06 K/uL (0-0.2); IG% 2.4 %; LYMPH % 28.6 %; LYMPH ABS # 1.65 K/uL (1.2-3.4); MEAN CELL VOLUME 87.1 fL (80-100); MEAN CORPUSCULAR HEMOGLOBIN 28.7 pg (25-34); MEAN PLATELET VOLUME 9.2 fL (7.4-10.4); MONO % 15.4 %; NEUT % 48.6 %; PLATELET COUNT 291 K/uL (130-400); WHITE BLOOD COUNT 5.77 K/uL (4.8-10.8)
[2016-07-30 06:48] LABS: PARTIAL THROMBOPLASTIN RATIO 2.5
[2016-07-30 06:57] LABS: BLOOD UREA NITROGEN 3 mg/dl (7-18); BUN/CREATININE RATIO 6.3 (10-20); CARBON DIOXIDE 27 mmol/L (21-32); CHLORIDE 109 mmol/L (98-107); CREATININE 0.51 mg/dl (0.60-1.40); GLUCOSE 82 mg/dl (70-99); POTASSIUM 3.7 mmol/L (3.5-5.1); SODIUM 144 mmol/L (136-145)
[2016-07-30 07:12] LABS: COMPLETE YES; POLYCHROMASIA 1+
--- NOTE | 2016-07-30 07:51 | Pulmonology Progress Note ---
Pulmonary Progress Note Date of Service Jul 30, 2016. Attending Dr. Hayder Waddell Subjective Patient is ding well today with no active pulmonary complaints and minimal sputum production Objective 31-yo male hospital day # 6 admitted with large RUL cavitary lung lesion/MSSA sputum, and small bilateral subsegmental pulmonary emboli. PMHx: Multiple sclerosis (Dx 24-yo), neurogenic bladder, malnutrition. 31-yo male admitted to [facility] 07/24/16: RUL cavitary lesion (MSSA from sputum), CTA : 07/24/16: few segmental bilateral pulmonary emboli, Today: - 98%: RA - Afebrile, HD stable - Fungitell: negative - Coccidioides, histoplasma, TB: neg - Influenza: neg - Sputum 07/25: MSSA, no fungal or AFB noted - 2x am AFB obtained for evaluation of Atypical organicisms Physical Exam: Constitutional: cachectic Head: PERRLA Respiratory: decreased BS RUL anterior CV: RRR, no MRG Abdomen: Soft, active bowel sounds : fallon catheter draining yellow translucent urine MSK/Extremiteis: Muscle wasting. Neurologic: A&O x 3, Appropriate affect. Assessment & Plan 31-year-old immunosuppressives male with right upper lobe cavitating lesion, sputum + MSSA and bilateral PE 1. RUL cavitary lesion with sputum + MSSA: - Antibiotic coverage per ID -1 morning sputum pending for evaluation of possible atypical AFB organisms. As the sensitivity of Quant-Gold on pooled data is 81% and the patient has another etiology for his current cavitary lesion further work-up for active TB is not warranted in my opinion. Suggest we f/u with ID. - Flutter Valve TID to aid in expectoration - Follow-up: -Pulmonary in [place] -Repeat non-contrasted CT of the chest post completion of antibiotic based off ID recommendations -May need more aggressive surgical options if cavity doesn't respond well to anti-biotic therapy as future MS treatment may require immunosuppressive agents 2. Bilateral provoked PE: - Continue anticoagulation - Heparin Gtt then would transition to long-term AC for x 3-months - minimum per anticoagulation clinic Pulm to sign off at this time but will follow patient post discharge or as needed this hospital stay Case discussed with Dr. Waddell Data Medications: Current Inpatient Medications Medications (Trade) Dose Ordered Sig/Camilo Route Start Time Stop Time Status Last Admin Dose Admin Acetaminophen (Tylenol Tab) 650 mg Q4H PRN PO 07/24/16 21:45 08/23/16 21:44 07/25/16 20:51 650 MG Al Hydrox/Mg Hydrox/Simethicone (Maalox Max Susp) 15 ml Q4H PRN PO 07/24/16 21:45 08/23/16 21:44 Magnesium Hydroxide (Milk Of Magnesia Susp) 30 ml Q6H PRN PO 07/24/16 21:45 08/23/16 21:44 Polyethylene (Miralax Powder Packet) 17 gm DAILY PRN PO 07/24/16 22:00 08/23/16 21:59 07/26/16 20:10 17 GM Ondansetron HCl (Zofran Inj) 4 mg Q6H PRN IV 07/24/16 21:45 08/23/16 21:44 Amantadine HCl (Symmetrel Cap) 100 mg BID PO 07/25/16 08:00 08/24/16 08:59 07/29/16 21:51 100 MG Bupropion HCl (Wellbutrin-Sr Tab) 100 mg DAILY@1500 PO 07/25/16 15:00 08/24/16 14:59 07/29/16 14:12 100 MG Bupropion HCl (Wellbutrin-Sr Tab) 100 mg QAM PO 07/25/16 08:00 08/24/16 08:59 07/29/16 07:53 100 MG Meclizine HCl (Antivert Tab) 25 mg TID PRN PO 07/24/16 22:30 08/23/16 22:29 Multivitamins (Multivitamin Tab) 1 tab DAILY PO 07/25/16 08:00 08/24/16 08:59 07/29/16 07:53 1 TAB Trazodone HCl (Desyrel Tab) 150 mg HS PO 07/25/16 21:00 08/24/16 20:59 07/29/16 21:50 150 MG Cholecalciferol (Vitamin D Tab) 5,000 inter.unit DAILY PO 07/25/16 08:00 08/24/16 08:59 07/29/16 07:53 5,000 INTER.UNIT Miscellaneous Information (Order Awaiting Action) 1 ea QS N/A 07/25/16 08:00 08/24/16 07:59 Docusate Sodium (coLACE CAP) 100 mg BID PO 07/25/16 08:00 08/24/16 08:59 07/29/16 21:47 100 MG Senna (Senokot Tab) 8.6 mg QAM PO 07/25/16 08:00 08/24/16 08:59 07/29/16 07:53 8.6 MG Bisacodyl 5 mg 5 mg DAILY PRN PO 07/24/16 22:30 08/23/16 22:29 07/26/16 20:10 5 MG Sodium Chloride (Nss 1000ml) 1,000 ml @ 100 mls/hr Q10H IV 07/24/16 22:45 08/23/16 22:44 07/29/16 21:51 100 MLS/HR Guaifenesin (Mucinex Contr Rel Tab) 600 mg Q12H PO 07/25/16 09:00 08/24/16 08:59 07/29/16 21:50 600 MG Phenol (Chloraseptic 1.4% [place]) 1 sprays BID PRN MT 07/24/16 22:45 08/23/16 22:44 07/25/16 18:43 1 SPRAYS Oxybutynin Chloride (Ditropan-Xl Tab) 10 mg BID PO 07/25/16 08:00 08/24/16 07:59 07/29/16 21:47 10 MG Piperacillin Sod/ Tazobactam Sod 1 ea 1 ea UD PRN N/A 07/25/16 10:07 08/24/16 10:06 Heparin Sodium/ Dextrose (Heparin 25,000 Unit/500ml D5W) 500 ml @ 33 mls/hr [id number] PRN IV 07/25/16 10:45 08/24/16 10:44 07/30/16 01:00 33 MLS/HR Enteral Nutritional Formula 1 can 1 can TIDM PO 07/25/16 17:00 08/24/16 16:59 07/29/16 16:46 1 CAN Piperacillin Sod/ Tazobactam Sod/ Dextrose (Zosyn Iv/D5 100ml) 115 ml @ 28.75 mls/ hr Q8H IV 07/27/16 16:00 07/31/16 23:59 07/30/16 00:59 28.75 MLS/HR I & O: 24-Hour Column 07/30/16 08:00 Intake Total 4521 ml Output Total 5750 ml Balance -1229 ml Vital Signs: Date Time Temp Pulse Resp B/P Pulse Ox O2 Delivery O2 Flow Rate FiO2 07/30/16 00:05 36.7 61 20 95/62 98 Room Air 07/30/16 00:00 Room Air 07/29/16 16:15 90 Room Air 07/29/16 15:39 37.0 68 18 98/64 98 Room Air 07/29/16 10:13 Room Air 07/29/16 07:42 37.0 60 18 99/63 98 Room Air Laboratory Results: Last 24 Hours Test 07/30/16 05:50 White Blood Count 5.77 K/uL Red Blood Count 3.10 M/uL Hemoglobin 8.9 g/dL Hematocrit 27.0 % Mean Corpuscular Volume 87.1 fL Mean Corpuscular Hemoglobin 28.7 pg Mean Corpuscular Hemoglobin Concent 33.0 g/dl Platelet Count 291 K/uL Mean Platelet Volume 9.2 fL Neutrophils (%) (Auto) 48.6 % Lymphocytes (%) (Auto) 28.6 % Monocytes (%) (Auto) 15.4 % Eosinophils (%) (Auto) 4.0 % Basophils (%) (Auto) 1.0 % Neutrophils # (Auto) 2.80 K/uL Lymphocytes # (Auto) 1.65 K/uL Monocytes # (Auto) 0.89 K/uL Eosinophils # (Auto) 0.23 K/uL Basophils # (Auto) 0.06 K/uL RDW Standard Deviation 46.4 fL RDW Coefficient of Variation 15.1 % Immature Granulocyte % (Auto) 2.4 % Immature Granulocyte # (Auto) 0.14 K/uL Polychromasia 1+ Activated Partial Thromboplast Time 64.8 SECONDS Partial Thromboplastin Ratio 2.5 Sodium Level 144 mmol/L Potassium Level 3.7 mmol/L Chloride Level 109 mmol/L Carbon Dioxide Level 27 mmol/L Anion Gap 8.0 mmol/L Blood Urea Nitrogen 3 mg/dl Creatinine 0.51 mg/dl Est Creatinine Clear Calc Drug Dose 172.2 ml/min Estimated GFR () > 150.0 Estimated GFR (Non- 143.2 BUN/Creatinine Ratio 6.3 Random Glucose 82 mg/dl Calcium Level 8.0 mg/dl
[2016-07-30] MEDS: DOCUSATE SODIUM 100 MG CAP PO SCH ×2 (08:00→20:36)
[2016-07-30] MEDS: SENNA 8.6 MG TAB PO SCH (08:00)
[2016-07-30 08:05] VITALS: BP 100/51; PULSE 61; TEMP 36.5; O2SAT 94
[2016-07-30] MEDS: GUAIFENESIN 600 MG TABCR PO SCH ×2 (08:06→20:37)
[2016-07-30] MEDS: BuPROPion SR 100 MG TABCR PO SCH ×2 (08:07→15:48)
[2016-07-30] MEDS: OXYBUTYNIN CHLORIDE 5 MG TABCR PO SCH ×2 (08:07→20:37)
[2016-07-30] MEDS: AMANTADINE HCL 100 MG CAP PO SCH ×2 (08:07→20:37)
[2016-07-30] MEDS: MULTIVITAMIN TAB PO SCH (08:07)
[2016-07-30] MEDS: SODIUM CHLORIDE 0.9% 1000ML 1,000 ML IV SCH ×2 (08:07→17:41)
[2016-07-30] MEDS: CHOLECALCIFEROL 1000 INTER.UNIT TAB PO SCH (08:07)
[2016-07-30] MEDS: BOOST PLUS VANILLA PO SCH ×6 (08:08→15:48)
[2016-07-30 15:09] VITALS: BP 105/63; PULSE 74; TEMP 37; O2SAT 95
[2016-07-30 15:36] LABS: HISTOPLASMA AB Negative (Negative)
[2016-07-30] MEDS: RIVAROXABAN TAB 15 MG TAB PO SCH (18:34)
--- NOTE | 2016-07-30 19:10 | Progress Note ---
Medicine Progress Note Date & Time of Visit: Jul 30, 2016 at 19:09. Subjective Patient doing better overall, will likely be able to return home this weekend. No overnight events noted. Tolerating PO. Appetite improving. Patient has been increasing activity. Cough is less productive. No other complaints. Objective Last 8 Hrs Date Time Temp Pulse Resp B/P Pulse Ox O2 Delivery O2 Flow Rate FiO2 07/30/16 16:00 Room Air 07/30/16 15:09 37.0 74 16 105/63 95 Room Air Physical Exam: GENERAL: Patient is in no acute distress. Appears cachectic HEENT: No acute trauma, normocephalic, mucous membranes moist, no nasal congestion, no scleral icterus. NECK: No stridor, trachea is midline. LUNGS: Diminished bilaterally, few rhonchi, breath sounds equal. HEART: Without murmurs gallops or rubs, regular rate and rhythm. ABDOMEN: Soft, nontender, bowel sounds positive EXTREMITIES: No cyanosis or edema NEUROLOGIC: Oriented x 3, no acute motor or sensory deficits, no focal weakness. SKIN: No rash, no jaundice, no diaphoresis. Laboratory Results: Last 24 Hours Test 07/30/16 05:50 White Blood Count 5.77 K/uL Red Blood Count 3.10 M/uL Hemoglobin 8.9 g/dL Hematocrit 27.0 % Mean Corpuscular Volume 87.1 fL Mean Corpuscular Hemoglobin 28.7 pg Mean Corpuscular Hemoglobin Concent 33.0 g/dl Platelet Count 291 K/uL Mean Platelet Volume 9.2 fL Neutrophils (%) (Auto) 48.6 % Lymphocytes (%) (Auto) 28.6 % Monocytes (%) (Auto) 15.4 % Eosinophils (%) (Auto) 4.0 % Basophils (%) (Auto) 1.0 % Neutrophils # (Auto) 2.80 K/uL Lymphocytes # (Auto) 1.65 K/uL Monocytes # (Auto) 0.89 K/uL Eosinophils # (Auto) 0.23 K/uL Basophils # (Auto) 0.06 K/uL RDW Standard Deviation 46.4 fL RDW Coefficient of Variation 15.1 % Immature Granulocyte % (Auto) 2.4 % Immature Granulocyte # (Auto) 0.14 K/uL Polychromasia 1+ Activated Partial Thromboplast Time 64.8 SECONDS Partial Thromboplastin Ratio 2.5 Sodium Level 144 mmol/L Potassium Level 3.7 mmol/L Chloride Level 109 mmol/L Carbon Dioxide Level 27 mmol/L Anion Gap 8.0 mmol/L Blood Urea Nitrogen 3 mg/dl Creatinine 0.51 mg/dl Est Creatinine Clear Calc Drug Dose 172.2 ml/min Estimated GFR () > 150.0 Estimated GFR (Non- 143.2 BUN/Creatinine Ratio 6.3 Random Glucose 82 mg/dl Calcium Level 8.0 mg/dl Date/Time Source Procedure Growth Status 07/30/16 08:30 Sputum Expectorated Sputum Acid Fast Stain Pending Received 07/30/16 08:30 Sputum Expectorated Sputum Mycobacterial Culture Pending Received Assessment & Plan CAVITARY LUNG LESION: likely from MSSA -risk factors include 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 (taken since 2013, MS controlled) -remains afebrile -sputum culture: MSSA -most likely etiology of cavitary pneumonia is from MSSA, as work up for concomitant fungal infection and TB are essentially negative -blood cultures: negative thus far -AFB sputum negative x1, 2 additional sputums have been ordered to rule out TB -Quantiferon gold negative -Serologic tests for Fungal infection neg -was on Vanco and Zosyn IV, due to staph being MSSA, vanco was stopped -has been off airborne precautions -Aubagio held for now -ID and Pulm consulted, appreciate recommendations -patient will likely be discharged on oral abx for 1 week per discussion with Dr. Olivarez from ID BILATERAL LOWER LOBE PULMONARY EMBOLI: -risk factors: underlying illness, sedentary -was on IV Heparin -per Pulm recs, should discuss anticoagulation choices with [facility] to determine which agent would be most appropriate -discussed with pharmacy and xarelto and coumadin were checked against the patients medications and xarelto had no interactions and thus patient will be placed on xarelto and heparin drip can be stopped; will need to check with insurance to make sure it is covered ANEMIA: -has low iron, was started on Iron supplement -monitor closely given anticoagulation -no bleeding noted MILD INR ELEVATION: -Liver US: no abnormalities -question if from Aubagio -monitor MULTIPLE SCLEROSIS: -controlled symptoms with Aubagio, but may be causing immunocompromised status -Neurology consulted, recommend to hold Aubagio for now; patient to follow up as outpatient 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 of urethral strictures -intermittently self catheterizes -continue Andino for now CACHEXIA/PROTEIN CALORIE MALNUTRITION: -likely from underlying infection -Nutrition consulted -BMI: 17.8 Current Inpatient Medications: Current Inpatient Medications Medications (Trade) Dose Ordered Sig/Camilo Route Start Time Stop Time Status Last Admin Dose Admin Acetaminophen (Tylenol Tab) 650 mg Q4H PRN PO 07/24/16 21:45 08/23/16 21:44 07/25/16 20:51 650 MG Al Hydrox/Mg Hydrox/Simethicone (Maalox Max Susp) 15 ml Q4H PRN PO 07/24/16 21:45 08/23/16 21:44 Magnesium Hydroxide (Milk Of Magnesia Susp) 30 ml Q6H PRN PO 07/24/16 21:45 08/23/16 21:44 Polyethylene (Miralax Powder Packet) 17 gm DAILY PRN PO 07/24/16 22:00 08/23/16 21:59 07/26/16 20:10 17 GM Ondansetron HCl (Zofran Inj) 4 mg Q6H PRN IV 07/24/16 21:45 08/23/16 21:44 Amantadine HCl (Symmetrel Cap) 100 mg BID PO 07/25/16 08:00 08/24/16 08:59 07/30/16 08:07 100 MG Bupropion HCl (Wellbutrin-Sr Tab) 100 mg DAILY@1500 PO 07/25/16 15:00 08/24/16 14:59 07/30/16 15:48 100 MG Bupropion HCl (Wellbutrin-Sr Tab) 100 mg QAM PO 07/25/16 08:00 08/24/16 08:59 07/30/16 08:07 100 MG Meclizine HCl (Antivert Tab) 25 mg TID PRN PO 07/24/16 22:30 08/23/16 22:29 Multivitamins (Multivitamin Tab) 1 tab DAILY PO 07/25/16 08:00 08/24/16 08:59 07/30/16 08:07 1 TAB Trazodone HCl (Desyrel Tab) 150 mg HS PO 07/25/16 21:00 08/24/16 20:59 07/29/16 21:50 150 MG Cholecalciferol (Vitamin D Tab) 5,000 inter.unit DAILY PO 07/25/16 08:00 08/24/16 08:59 07/30/16 08:07 5,000 INTER.UNIT Miscellaneous Information (Order Awaiting Action) 1 ea QS N/A 07/25/16 08:00 08/24/16 07:59 Docusate Sodium (coLACE CAP) 100 mg BID PO 07/25/16 08:00 08/24/16 08:59 07/29/16 21:47 100 MG Senna (Senokot Tab) 8.6 mg QAM PO 07/25/16 08:00 08/24/16 08:59 07/29/16 07:53 8.6 MG Bisacodyl 5 mg 5 mg DAILY PRN PO 07/24/16 22:30 08/23/16 22:29 07/26/16 20:10 5 MG Sodium Chloride (Nss 1000ml) 1,000 ml @ 100 mls/hr Q10H IV 07/24/16 22:45 08/23/16 22:44 07/30/16 17:41 100 MLS/HR Guaifenesin (Mucinex Contr Rel Tab) 600 mg Q12H PO 07/25/16 09:00 08/24/16 08:59 07/30/16 08:06 600 MG Phenol (Chloraseptic 1.4% [place]) 1 sprays BID PRN MT 07/24/16 22:45 08/23/16 22:44 07/25/16 18:43 1 SPRAYS Oxybutynin Chloride (Ditropan-Xl Tab) 10 mg BID PO 07/25/16 08:00 08/24/16 07:59 07/30/16 08:07 10 MG Piperacillin Sod/ Tazobactam Sod (Consult) 1 ea UD PRN N/A 07/25/16 10:07 08/24/16 10:06 Enteral Nutritional Formula 1 can 1 can TIDM PO 07/25/16 17:00 08/24/16 16:59 07/30/16 15:48 1 CAN Piperacillin Sod/ Tazobactam Sod/ Dextrose (Zosyn Iv/D5 100ml) 115 ml @ 28.75 mls/ hr Q8H IV 07/27/16 16:00 07/31/16 23:59 07/30/16 15:48 28.75 MLS/HR Rivaroxaban (Xarelto Tab) 15 mg BIDM PO 07/30/16 18:00 08/20/16 23:59 07/30/16 18:34 15 MG
--- NOTE | 2016-07-30 19:53 | Infectious Disease Progress Nt ---
Progress Note Date of Service Jul 30, 2016. Subjective Pt evaluation today including: conversation w/ patient, physical exam, chart review, lab review, review of studies, conversation w/ healthcare economics consultant, review of inpatient medication list Cough is improving, less sputum production. Remains afebrile. No other new complaints. All Other Systems: Reviewed and Negative Medications Current Inpatient Medications Medications (Trade) Dose Ordered Sig/Camilo Route Start Time Stop Time Status Last Admin Dose Admin Acetaminophen (Tylenol Tab) 650 mg Q4H PRN PO 07/24/16 21:45 08/23/16 21:44 07/25/16 20:51 650 MG Al Hydrox/Mg Hydrox/Simethicone (Maalox Max Susp) 15 ml Q4H PRN PO 07/24/16 21:45 08/23/16 21:44 Magnesium Hydroxide (Milk Of Magnesia Susp) 30 ml Q6H PRN PO 07/24/16 21:45 08/23/16 21:44 Polyethylene (Miralax Powder Packet) 17 gm DAILY PRN PO 07/24/16 22:00 08/23/16 21:59 07/26/16 20:10 17 GM Ondansetron HCl (Zofran Inj) 4 mg Q6H PRN IV 07/24/16 21:45 08/23/16 21:44 Amantadine HCl (Symmetrel Cap) 100 mg BID PO 07/25/16 08:00 08/24/16 08:59 07/30/16 08:07 100 MG Bupropion HCl (Wellbutrin-Sr Tab) 100 mg DAILY@1500 PO 07/25/16 15:00 08/24/16 14:59 07/30/16 15:48 100 MG Bupropion HCl (Wellbutrin-Sr Tab) 100 mg QAM PO 07/25/16 08:00 08/24/16 08:59 07/30/16 08:07 100 MG Meclizine HCl (Antivert Tab) 25 mg TID PRN PO 07/24/16 22:30 08/23/16 22:29 Multivitamins (Multivitamin Tab) 1 tab DAILY PO 07/25/16 08:00 08/24/16 08:59 07/30/16 08:07 1 TAB Trazodone HCl (Desyrel Tab) 150 mg HS PO 07/25/16 21:00 08/24/16 20:59 07/29/16 21:50 150 MG Cholecalciferol (Vitamin D Tab) 5,000 inter.unit DAILY PO 07/25/16 08:00 08/24/16 08:59 07/30/16 08:07 5,000 INTER.UNIT Miscellaneous Information (Order Awaiting Action) 1 ea QS N/A 07/25/16 08:00 08/24/16 07:59 Docusate Sodium (coLACE CAP) 100 mg BID PO 07/25/16 08:00 08/24/16 08:59 07/29/16 21:47 100 MG Senna (Senokot Tab) 8.6 mg QAM PO 07/25/16 08:00 08/24/16 08:59 07/29/16 07:53 8.6 MG Bisacodyl 5 mg 5 mg DAILY PRN PO 07/24/16 22:30 08/23/16 22:29 07/26/16 20:10 5 MG Sodium Chloride (Nss 1000ml) 1,000 ml @ 100 mls/hr Q10H IV 07/24/16 22:45 08/23/16 22:44 07/30/16 17:41 100 MLS/HR Guaifenesin (Mucinex Contr Rel Tab) 600 mg Q12H PO 07/25/16 09:00 08/24/16 08:59 07/30/16 08:06 600 MG Phenol (Chloraseptic 1.4% [place]) 1 sprays BID PRN MT 07/24/16 22:45 08/23/16 22:44 07/25/16 18:43 1 SPRAYS Oxybutynin Chloride (Ditropan-Xl Tab) 10 mg BID PO 07/25/16 08:00 08/24/16 07:59 07/30/16 08:07 10 MG Piperacillin Sod/ Tazobactam Sod (Consult) 1 ea UD PRN N/A 07/25/16 10:07 08/24/16 10:06 Enteral Nutritional Formula 1 can 1 can TIDM PO 07/25/16 17:00 08/24/16 16:59 07/30/16 15:48 1 CAN Piperacillin Sod/ Tazobactam Sod/ Dextrose (Zosyn Iv/D5 100ml) 115 ml @ 28.75 mls/ hr Q8H IV 07/27/16 16:00 07/31/16 23:59 07/30/16 15:48 28.75 MLS/HR Rivaroxaban (Xarelto Tab) 15 mg BIDM PO 07/30/16 18:00 08/20/16 23:59 07/30/16 18:34 15 MG Objective Vital Signs Date Time Temp Pulse Resp B/P Pulse Ox O2 Delivery O2 Flow Rate FiO2 07/30/16 16:00 Room Air 07/30/16 15:09 37.0 74 16 105/63 95 Room Air 07/30/16 08:05 36.5 61 16 100/51 94 Room Air 07/30/16 08:00 Room Air 07/30/16 00:05 36.7 61 20 95/62 98 Room Air 07/30/16 00:00 Room Air Physical Exam General Appearance: WD/WN, no apparent distress Eyes: normal inspection, EOMI, sclerae normal ENT: normal ENT inspection, pharynx normal Neck: supple, no adenopathy, thyroid normal, trachea midline Respiratory/Chest: chest non-tender, lungs clear, normal breath sounds, no respiratory distress Cardiovascular: regular rate, rhythm, no gallop, no murmur Abdomen: normal bowel sounds, non tender, soft, no organomegaly Extremities: non-tender, no calf tenderness Neurologic/Psychiatric: alert, oriented x 3 Skin: normal color, no rash Lymphatic: no adenopathy Laboratory Results Last 24 Hours Test 07/30/16 05:50 White Blood Count 5.77 K/uL Red Blood Count 3.10 M/uL Hemoglobin 8.9 g/dL Hematocrit 27.0 % Mean Corpuscular Volume 87.1 fL Mean Corpuscular Hemoglobin 28.7 pg Mean Corpuscular Hemoglobin Concent 33.0 g/dl Platelet Count 291 K/uL Mean Platelet Volume 9.2 fL Neutrophils (%) (Auto) 48.6 % Lymphocytes (%) (Auto) 28.6 % Monocytes (%) (Auto) 15.4 % Eosinophils (%) (Auto) 4.0 % Basophils (%) (Auto) 1.0 % Neutrophils # (Auto) 2.80 K/uL Lymphocytes # (Auto) 1.65 K/uL Monocytes # (Auto) 0.89 K/uL Eosinophils # (Auto) 0.23 K/uL Basophils # (Auto) 0.06 K/uL RDW Standard Deviation 46.4 fL RDW Coefficient of Variation 15.1 % Immature Granulocyte % (Auto) 2.4 % Immature Granulocyte # (Auto) 0.14 K/uL Polychromasia 1+ Activated Partial Thromboplast Time 64.8 SECONDS Partial Thromboplastin Ratio 2.5 Sodium Level 144 mmol/L Potassium Level 3.7 mmol/L Chloride Level 109 mmol/L Carbon Dioxide Level 27 mmol/L Anion Gap 8.0 mmol/L Blood Urea Nitrogen 3 mg/dl Creatinine 0.51 mg/dl Est Creatinine Clear Calc Drug Dose 172.2 ml/min Estimated GFR () > 150.0 Estimated GFR (Non- 143.2 BUN/Creatinine Ratio 6.3 Random Glucose 82 mg/dl Calcium Level 8.0 mg/dl Assessment and Plan right upper lobe cavitary lesion in patient on immunosuppressive therapy for multiple sclerosis. sputum cultures growing methicillin sensitive Staph aureus , certainly could be cause cavitary lesion. Patient currently on IV Zosyn, likely can transition to oral antibiotics such as with dicloxacillin 500 mg q.i.d. i. Will discuss.
[2016-07-30] MEDS ORDERED: RIVAROXABAN TAB 15 MG TAB PO SCH (20:00)
[2016-07-30] MEDS: TRAZODONE HCL 50 MG TAB PO SCH (20:37)
[2016-07-30 23:30] VITALS: BP 93/46; PULSE 62; TEMP 37.1; O2SAT 97
[2016-07-31] MEDS: PIPERACILL/TAZOBAC IV 3.375 GM in DEXTROSE 5% 100ML 100 ML IV SCH ×2 (00:38→07:54)
[2016-07-31] MEDS: SODIUM CHLORIDE 0.9% 1000ML 1,000 ML IV SCH ×3 (03:48→23:03)
[2016-07-31 06:32] LABS: PARTIAL THROMBOPLASTIN RATIO 1.3
[2016-07-31 07:43] VITALS: BP 103/63; PULSE 55; TEMP 37.1; O2SAT 97
[2016-07-31] MEDS: SENNA 8.6 MG TAB PO SCH (07:51)
[2016-07-31] MEDS: AMANTADINE HCL 100 MG CAP PO SCH ×2 (07:51→20:30)
[2016-07-31] MEDS: OXYBUTYNIN CHLORIDE 5 MG TABCR PO SCH ×2 (07:52→20:31)
[2016-07-31] MEDS: GUAIFENESIN 600 MG TABCR PO SCH ×2 (07:52→20:31)
[2016-07-31] MEDS: BuPROPion SR 100 MG TABCR PO SCH ×2 (07:52→16:07)
[2016-07-31] MEDS: CHOLECALCIFEROL 1000 INTER.UNIT TAB PO SCH (07:52)
[2016-07-31] MEDS: RIVAROXABAN TAB 15 MG TAB PO SCH ×2 (07:52→16:55)
[2016-07-31] MEDS: MULTIVITAMIN TAB PO SCH (07:52)
[2016-07-31] MEDS: DOCUSATE SODIUM 100 MG CAP PO SCH ×2 (07:53→20:31)
[2016-07-31] MEDS: BOOST PLUS VANILLA PO SCH ×6 (07:53→16:06)
[2016-07-31 16:03] VITALS: BP 98/52; PULSE 60; TEMP 36.4; O2SAT 99
[2016-07-31] MEDS ORDERED: XRL15 PO (16:34)
[2016-07-31] MEDS: DICLOXACILLIN SODIUM 250 MG CAP PO SCH ×2 (16:55→20:30)
--- NOTE | 2016-07-31 19:37 | Progress Note ---
Medicine Progress Note Date & Time of Visit: Jul 31, 2016 at 19:36. Subjective Patient reports doing better overall, his cough is less frequent and less productive and he does feel able to breathe deeper without as much discomfort. No overnight events noted. Tolerating PO. Has been ambulating in his room without difficulty. Objective Last 8 Hrs Date Time Temp Pulse Resp B/P Pulse Ox O2 Delivery O2 Flow Rate FiO2 07/31/16 16:03 36.4 60 18 98/52 99 Room Air 07/31/16 16:00 Room Air Physical Exam: GENERAL: Patient is in no acute distress. Appears cachectic HEENT: No acute trauma, normocephalic, mucous membranes moist, no nasal congestion, no scleral icterus. NECK: No stridor, trachea is midline. LUNGS: Diminished bilaterally, few mild rhonchi in upper airways, breath sounds equal. HEART: Without murmurs gallops or rubs, regular rate and rhythm. ABDOMEN: Soft, nontender, bowel sounds positive EXTREMITIES: No cyanosis or edema NEUROLOGIC: Oriented x 3, no acute motor or sensory deficits, no focal weakness. SKIN: No rash, no jaundice, no diaphoresis. Laboratory Results: Last 24 Hours Test 07/31/16 05:24 Activated Partial Thromboplast Time 34.3 SECONDS Partial Thromboplastin Ratio 1.3 Assessment & Plan CAVITARY LUNG LESION: likely from MSSA -risk factors include 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 (taken since 2013, MS controlled) -remains afebrile -sputum culture: MSSA -most likely etiology of cavitary pneumonia is from MSSA, as work up for concomitant fungal infection and TB are essentially negative -blood cultures: negative thus far -AFB sputum negative x1, 2 additional sputums have been ordered to rule out TB and are pending -Quantiferon gold negative -Serologic tests for Fungal infection neg -was on Vanco and Zosyn IV, due to staph being MSSA, vanco was stopped -has been off airborne precautions -Aubagio held for now -ID and Pulm consulted, appreciate recommendations -patient will likely be discharged on oral abx for 1 week per discussion with Dr. Olivarez from ID -zosyn stopped and dicloxacillin started today BILATERAL LOWER LOBE PULMONARY EMBOLI: -risk factors: underlying illness, sedentary -was on IV Heparin -per Pulm recs, should discuss anticoagulation choices with [facility] to determine which agent would be most appropriate -discussed with pharmacy and xarelto and coumadin were checked against the patients medications and xarelto had no interactions and thus patient will be placed on xarelto and heparin drip can be stopped; will need to check with insurance to make sure it is covered ANEMIA: -has low iron, was started on Iron supplement -monitor closely given anticoagulation -no bleeding noted -outpatient CBC in 1 week MILD INR ELEVATION: -Liver US: no abnormalities -question if from Aubagio -monitor MULTIPLE SCLEROSIS: -controlled symptoms with Aubagio, but may be causing immunocompromised status -Neurology consulted, recommend to hold Aubagio for now; patient to follow up as outpatient for further instruction regarding MS treatment 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 of urethral strictures -intermittently self catheterizes -continue Andino while in the hospital CACHEXIA/PROTEIN CALORIE MALNUTRITION: -likely from underlying infection -Nutrition consulted -BMI: 17.8 Current Inpatient Medications: Current Inpatient Medications Medications (Trade) Dose Ordered Sig/Camilo Route Start Time Stop Time Status Last Admin Dose Admin Acetaminophen (Tylenol Tab) 650 mg Q4H PRN PO 07/24/16 21:45 08/23/16 21:44 07/25/16 20:51 650 MG Al Hydrox/Mg Hydrox/Simethicone (Maalox Max Susp) 15 ml Q4H PRN PO 07/24/16 21:45 08/23/16 21:44 Magnesium Hydroxide (Milk Of Magnesia Susp) 30 ml Q6H PRN PO 07/24/16 21:45 08/23/16 21:44 Polyethylene (Miralax Powder Packet) 17 gm DAILY PRN PO 07/24/16 22:00 08/23/16 21:59 07/26/16 20:10 17 GM Ondansetron HCl (Zofran Inj) 4 mg Q6H PRN IV 07/24/16 21:45 08/23/16 21:44 Amantadine HCl (Symmetrel Cap) 100 mg BID PO 07/25/16 08:00 08/24/16 08:59 07/31/16 07:51 100 MG Bupropion HCl (Wellbutrin-Sr Tab) 100 mg DAILY@1500 PO 07/25/16 15:00 08/24/16 14:59 07/31/16 16:07 100 MG Bupropion HCl (Wellbutrin-Sr Tab) 100 mg QAM PO 07/25/16 08:00 08/24/16 08:59 07/31/16 07:52 100 MG Meclizine HCl (Antivert Tab) 25 mg TID PRN PO 07/24/16 22:30 08/23/16 22:29 Multivitamins (Multivitamin Tab) 1 tab DAILY PO 07/25/16 08:00 08/24/16 08:59 07/31/16 07:52 1 TAB Trazodone HCl (Desyrel Tab) 150 mg HS PO 07/25/16 21:00 08/24/16 20:59 07/30/16 20:37 150 MG Cholecalciferol (Vitamin D Tab) 5,000 inter.unit DAILY PO 07/25/16 08:00 08/24/16 08:59 07/31/16 07:52 5,000 INTER.UNIT Miscellaneous Information (Order Awaiting Action) 1 ea QS N/A 07/25/16 08:00 08/24/16 07:59 Docusate Sodium (coLACE CAP) 100 mg BID PO 07/25/16 08:00 08/24/16 08:59 07/30/16 20:36 100 MG Senna (Senokot Tab) 8.6 mg QAM PO 07/25/16 08:00 08/24/16 08:59 07/29/16 07:53 8.6 MG Bisacodyl 5 mg 5 mg DAILY PRN PO 07/24/16 22:30 08/23/16 22:29 07/26/16 20:10 5 MG Sodium Chloride (Nss 1000ml) 1,000 ml @ 100 mls/hr Q10H IV 07/24/16 22:45 08/23/16 22:44 07/31/16 16:06 100 MLS/HR Guaifenesin (Mucinex Contr Rel Tab) 600 mg Q12H PO 07/25/16 09:00 08/24/16 08:59 07/31/16 07:52 600 MG Phenol (Chloraseptic 1.4% [place]) 1 sprays BID PRN MT 07/24/16 22:45 08/23/16 22:44 07/25/16 18:43 1 SPRAYS Oxybutynin Chloride (Ditropan-Xl Tab) 10 mg BID PO 07/25/16 08:00 08/24/16 07:59 07/31/16 07:52 10 MG Enteral Nutritional Formula (Boost Plus Vanilla) 1 can TIDM PO 07/25/16 17:00 08/24/16 16:59 07/31/16 16:06 1 CAN Rivaroxaban (Xarelto Tab) 15 mg BIDM PO 07/30/16 18:00 08/20/16 23:59 07/31/16 16:55 15 MG Dicloxacillin Sodium (Dynapen Cap) 500 mg QID PO 07/31/16 17:00 08/07/16 16:59 07/31/16 16:55 500 MG
[2016-07-31] MEDS: TRAZODONE HCL 50 MG TAB PO SCH (20:31)
[2016-07-31 23:30] VITALS: BP 86/44; PULSE 67; TEMP 36.8; O2SAT 97
[2016-08-01 06:24] LABS: HEMATOCRIT 27.9 % (42-52); MEAN CELL VOLUME 89.1 fL (80-100); MEAN CORPUSCULAR HEMOGLOBIN 29.7 pg (25-34); MEAN CORPUSCULAR HGB CONC 33.3 g/dl (32-36); MEAN PLATELET VOLUME 9.3 fL (7.4-10.4); PLATELET COUNT 289 K/uL (130-400); RED BLOOD COUNT 3.13 M/uL (4.7-6.1); WHITE BLOOD COUNT 5.81 K/uL (4.8-10.8)
[2016-08-01 06:31] LABS: PARTIAL THROMBOPLASTIN RATIO 1.2
[2016-08-01 07:41] VITALS: BP 93/54; PULSE 53; TEMP 36.8; O2SAT 98
[2016-08-01] MEDS: DICLOXACILLIN SODIUM 250 MG CAP PO SCH (07:54)
[2016-08-01] MEDS: CHOLECALCIFEROL 1000 INTER.UNIT TAB PO SCH (07:54)
[2016-08-01] MEDS: AMANTADINE HCL 100 MG CAP PO SCH (07:54)
[2016-08-01] MEDS: GUAIFENESIN 600 MG TABCR PO SCH (07:54)
[2016-08-01] MEDS: MULTIVITAMIN TAB PO SCH (07:54)
[2016-08-01] MEDS: OXYBUTYNIN CHLORIDE 5 MG TABCR PO SCH (07:54)
[2016-08-01] MEDS: SENNA 8.6 MG TAB PO SCH (07:55)
[2016-08-01] MEDS: SODIUM CHLORIDE 0.9% 1000ML 1,000 ML IV SCH (07:55)
[2016-08-01] MEDS: RIVAROXABAN TAB 15 MG TAB PO SCH (07:55)
[2016-08-01] MEDS: BOOST PLUS VANILLA PO SCH ×2 (07:55)
[2016-08-01] MEDS: DOCUSATE SODIUM 100 MG CAP PO SCH (07:55)
[2016-08-01] MEDS: BuPROPion SR 100 MG TABCR PO SCH (07:55)
[2016-08-01] MEDS ORDERED: DCL250 PO (10:38)
--- NOTE | 2016-08-01 10:48 | Discharge Instructions ---
Discharge Instructions Admission Reason for Admission: Cavitary Lesion Of Lung; Multiple Sclerosis Discharge Discharge Diagnosis / Problem: Cavitary lung lesion, MSSA pneumonia Discharge Goals Goal(s): Therapeutic intervention Activity Recommendations Activity Limitations: as noted below Lifting Limitations: gradually increase as tolerated . Instructions / Follow-Up Instructions / Follow-Up Please see Dr. Orourke on August 03 at 11:10AM for hospital follow up. Please also obtain a script for Xarelto 20mg daily that you will take after the initial prescription is completed Please follow up with Neurology (either in [facility] or with [facility] Dr. Lizarraga or Dr. Clark) and continue to hold Aubagio until after follow up with Neurology and Pulmonary Please call to make an appointment with Dr. Waddell with [facility] in [facility]. Phone number to schedule is [phone] Current Hospital Diet Patient's current hospital diet: Regular Diet Discharge Diet Recommended Diet: Regular Diet Pending Studies Studies pending at discharge: yes List of pending studies: Awaiting 2 additional sputum for AFB culture results to become finalized. Medical Emergencies . Who to Call and When: Medical Emergencies: If at any time you feel your situation is an emergency, please call 911 immediately. . Non-Emergent Contact Non-Emergency issues call your: Primary Care Provider . . "Provider Documentation" section prepared by Krissy Cantu. VTE Core Measure Inpt VTE Proph given/why not?: Other Anticoagulation
--- NOTE | 2016-08-01 10:58 | Discharge Summary ---
Discharge Summary Admission Date: Jul 24, 2016 at 21:44 Discharge Date: Aug 01, 2016 Discharge Disposition: Home with services Principal Diagnosis: PE, Cavitary lung lesion, MSSA pneumonia Pending Studies/Follow-Up: Needs a script for Xarelto 20mg once daily at PCP follow up appt. Needs a repeat CBC in 1 week (after follow up with PCP). Follow up of sputum AFB samples (2 were still pending). Pulmonary follow up with Dr. Waddell and CT chest. Medication Reconciliation New Medications: Dicloxacillin Sodium (Dicloxacillin Sodium) 250 Mg Cap 500 MG PO QID, #28 CAP Rivaroxaban (Xarelto) 15 Mg Tab 15 MG PO BIDM, #38 TAB Continued Medications: Amantadine Hcl (Symmetrel) 100 Mg Tab 100 MG PO BID, TAB Bupropion (Wellbutrin Sr) 100 Mg Ertab 100 MG PO QAM, TAB Bupropion (Wellbutrin Sr) 100 Mg Ertab 100 MG PO AFTERNOON, TAB NOT LATER THAN 4PM Cholecalciferol (Vitamin D) 5,000 Unit Tab 5000 UNIT PO DAILY Coenzyme [id number]-[id number] E (Coenzyme Q10) 1 Cap Cap 1 CAP PO DAILY Meclizine HCl (Meclizine 25) 25 Mg Tab 25 MG PO TID PRN for Nausea or Vomiting Multivitamin (Multivitamin) Tab 1 TAB PO DAILY, TAB Nutritional Supplements (Dhea) 1 Cap Cap 1 CAP PO DAILY Oxybutynin Chloride (Oxybutynin Chloride ER) 10 Mg Tabcr 10 MG PO BID Trazodone Hcl (Desyrel) 150 Mg Tab 150-300 MG PO HS, TAB Discontinued Medications: Teriflunomide (Aubagio) 14 Mg Tab 14 MG PO DAILY Admission Information HPI (per Admitting provider): This is a 31 year old male with PMH of MS, neurogenic bladder requiring intermittent self catheterizations - presented here secondary to productive cough for the past few days, weakness and a significant weight loss in the past year - as per the father, he has lost around 25-30 lbs. in the past year. He has been having upper respiratory problems for a few weeks now and has seen his PCP for this. He was given Augmentin for 10 days and he had finished the course of antibiotics, but the cough and sputum production persisted and worsened. He presented to the ER and had an CXR done showing a cavitary lesion in the right upper lobe. He has no travel history outside of [facility]. He denies chest pain/denies shortness of breath. Physical Exam (per Admitting): General Appearance: no apparent distress, + cachetic, + thin Head: normocephalic, atraumatic ENT: + pertinent finding (temporal wasting) Respiratory/Chest: no respiratory distress, no accessory muscle use, + decreased breath sounds Cardiovascular: regular rate, rhythm, no edema, no murmur Abdomen/GI: normal bowel sounds, non tender, soft Extremities/Musculoskelatal: no calf tenderness, normal capillary refill, no pedal edema Neurologic/Psych: no motor/sensory deficits, alert, normal mood/affect Skin: normal color Lymphatic: no adenopathy Hospital Course CAVITARY LUNG LESION: likely from MSSA -risk factors include 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 (taken since 2013, MS controlled) -remains afebrile -sputum culture: MSSA -most likely etiology of cavitary pneumonia is from MSSA, as work up for concomitant fungal infection and TB are essentially negative -blood cultures: negative thus far -AFB sputum negative x1, 2 additional sputums have been ordered to rule out TB and are pending -Quantiferon gold negative -Serologic tests for Fungal infection neg -was on Vanco and Zosyn IV, due to staph being MSSA, vanco was stopped -has been off airborne precautions -Aubagio held for now -ID and Pulm consulted, appreciate recommendations -patient will likely be discharged on oral abx for 1 week per discussion with Dr. Olivarez from ID -zosyn stopped and dicloxacillin started BILATERAL LOWER LOBE PULMONARY EMBOLI: -risk factors: underlying illness, sedentary -was on IV Heparin -per Pulm recs, should discuss anticoagulation choices with [facility] to determine which agent would be most appropriate -discussed with pharmacy and xarelto and coumadin were checked against the patients medications and xarelto had no interactions and thus patient was placed on xarelto and the heparin drip stopped ANEMIA: -has low iron, was started on Iron supplement -monitor closely given anticoagulation -no bleeding noted -outpatient CBC in 1 week MILD INR ELEVATION: -Liver US: no abnormalities -question if from Aubagio -monitor MULTIPLE SCLEROSIS: -controlled symptoms with Aubagio, but may be causing immunocompromised status -Neurology consulted, recommend to hold Aubagio for now; patient to follow up as outpatient for further instruction regarding MS treatment 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 of urethral strictures -intermittently self catheterizes -continue Andino while in the hospital CACHEXIA/PROTEIN CALORIE MALNUTRITION: -likely from underlying infection -Nutrition consulted -BMI: 17.8 PHYSICAL EXAM ON DAY OF DISCHARGE: GENERAL: Patient is in no acute distress. HEENT: No acute trauma, normocephalic, mucous membranes moist, no nasal congestion, no scleral icterus NECK: No stridor, trachea is midline. LUNGS: Clear to auscultation bilaterally, no wheeze, no rhonchi, breath sounds equal. HEART: Without murmurs gallops or rubs, regular rate and rhythm. ABDOMEN: Soft, nontender, bowel sounds positive EXTREMITIES: No cyanosis or edema NEUROLOGIC: Oriented x 3, no acute motor or sensory deficits, no focal weakness. SKIN: No rash, no jaundice, no diaphoresis. Total time spent on discharge = 37 This includes examination of the patient, discharge planning, medication reconciliation, and communication with other providers. Discharge Instructions 08/01/16 05:30 Test 08/01/16 05:30 Red Blood Count 3.13 M/uL (4.7-6.1) Mean Corpuscular Volume 89.1 fL (80-100) Mean Corpuscular Hemoglobin 29.7 pg (25-34) Mean Corpuscular Hemoglobin Concent 33.3 g/dl (32-36) RDW Standard Deviation 47.4 fL (36.4-46.3) RDW Coefficient of Variation 16.2 % (11.5-14.5) Mean Platelet Volume 9.3 fL (7.4-10.4) Activated Partial Thromboplast Time 32.4 SECONDS (21.0-31.0) Partial Thromboplastin Ratio 1.2 see patient instructions Additional Copies To Mani Chao M.D.
[2016-08-01 11:25] VITALS: BP 93/54; PULSE 53; TEMP 36.8; O2SAT 98
[2016-08-05 12:24] LABS: NEO CAL-R MOLECULAR See Separate Report; NEO JAK2 MUT EXON 12 MOLECULAR See Separate Report; NEO MPL W515 See Separate Report
== END 2016-08-01 12:02 | disposition home health service (06) | DRG 177 ==
LOC: ENRESERVTM → ENRESERVDT → C.EDB 19:10 → C.4E 21:44
PROVIDERS: ADMIT Family Medicine; ATTEND Internal Medicine
DX: J15.211 Pneumonia due to Methicillin susceptible Staphylococcus aureus (principal); I26.99 Other pulmonary embolism without acute cor pulmonale; E46 Unspecified protein-calorie malnutrition; R64 Cachexia; G35 Multiple sclerosis; E04.1 Nontoxic single thyroid nodule; R91.1 Solitary pulmonary nodule; D64.9 Anemia, unspecified; N31.9 Neuromuscular dysfunction of bladder, unspecified; Z83.3 Family history of diabetes mellitus

== ENCOUNTER → 2016-09-06 | Outpatient (CLI) | payer OTHER ==
[~2016-09-06] MED LIST: AMAN100T PO; BUPR100T8 PO; CHOL1TAB42 PO; COENCAP8 PO; DCL250 PO; DTRSR/10 PO; MECL-91 PO; MULT-506 PO; NUTR50CA PO; TRAZ1TAB52 PO; XRL15 PO
--- NOTE | 2016-09-06 11:10 | DIAGNOSTIC IMAGING REPORT ---
CHEST CT WITHOUT CONTRAST CT DOSE: 225.62 mGy.cm HISTORY: J98.4 Pulmonary cavitary lesion TECHNIQUE: Multiaxial CT images of the chest were performed without contrast. COMPARISON: Chest CTA 07/24/2016. FINDINGS: The 8.8 cm right upper lobe cavitary focus is again noted. However, the second wall has significantly improved. There is no fluid remaining within the cavitary lesion. The additional areas of right lung groundglass and nodular opacities have a most completely resolved. Left lung remains clear. The central airways are patent. No pneumothorax. No pleural effusions. No mediastinal or hilar lymphadenopathy. Visualized liver, spleen, and adrenal glands are unremarkable. The heart is normal in size. IMPRESSION: The 8.8 cm right upper lobe cavitary focus is unchanged in size. However, there is significant improvement in the thickened wall and resolution of the fluid within the cavitary lesion. There is also near complete resolution of the right lung groundglass and nodular opacities. This most likely represents resolving cavitary pneumonia. [address] follow-up is recommended to ensure complete resolution. Electronically signed by: Emmanuel Vega M.D. 09/06/2016 11:09 AM Dictated Date/Time: 09/06/2016 11:02 AM
== END | disposition home or self-care (01) ==
LOC: C.CTS 10:07
PROVIDERS: ATTEND Internal Medicine Critical Care Medicine
DX: J98.4 Other disorders of lung (principal)

== ENCOUNTER → 2017-03-02 | Outpatient (CLI) | payer OTHER ==
--- NOTE | 2017-03-02 13:54 | DIAGNOSTIC IMAGING REPORT ---
(CHEST) THORAX WITHOUT CLINICAL HISTORY: J15.211 MSSA (methicillin susceptible Staphylococcus aureus) cough. Cavitary pulmonary lesion. COMPARISON STUDY: 09/06/2016 CT DOSE: 297.10 mGy.cm TECHNIQUE: CT of the thorax was performed from the thoracic inlet to the lung bases. Images are reviewed in the axial, sagittal, and coronal planes. IV contrast was not administered for this examination. A dose lowering technique was utilized adhering to the principles of ALARA. FINDINGS: Thyroid: Imaged portions of the thyroid gland are normal in appearance. Thoracic aorta: The thoracic aorta is normal in course and caliber, noting standard 3 vessel arch anatomy. Heart: The heart is normal in size and configuration, without pericardial effusion. Lungs and pleural spaces: No pleural effusions are visualized. There is an 8.8 cm thin-walled cavitary/cystic lesion within the right upper lobe peripherally. There is stable adjacent tree-in-bud nodularity. There is no fluid within the lesion. No endobronchial lesions are visualized. The left lung appears clear. There is no pneumothorax. Mediastinum: There is no mediastinal lymphadenopathy. Nunu: There is no evidence of pathologic hilar adenopathy on this noncontrast study Axilla: There is no evidence of pathologic axillary lymphadenopathy. Upper abdomen: Partially visualized upper abdominal viscera is within normal limits. Skeletal structures: There are no lytic or blastic osseous lesions. IMPRESSION: 1. Stable 8.8 cm right upper lobe thin-walled cavitary/cystic lesion. There is stable adjacent tree-in-bud nodularity. The lesion is likely postinflammatory. 2. No evidence of pathologic adenopathy. Electronically signed by: Carlo Napoles M.D. 03/02/2017 1:53 PM Dictated Date/Time: 03/02/2017 1:48 PM
== END | disposition home or self-care (01) ==
LOC: C.CTS 13:17
PROVIDERS: ATTEND Internal Medicine Critical Care Medicine
DX: J15.211 Pneumonia due to Methicillin susceptible Staphylococcus aureus (principal); J98.4 Other disorders of lung; R05 Cough

== ENCOUNTER → 2018-02-08 | Outpatient (CLI) | payer OTHER ==
[~2018-02-08] MED LIST changes: +AMAN100C18 PO; -AMAN100T PO; +B-COCAP20 PO; -BUPR100T8 PO; +CALC-478 PO; +CHOL1CAP30 PO; -CHOL1TAB42 PO; -COENCAP8 PO; -DCL250 PO; +DTR5 PO; -DTRSR/10 PO; +HYDR-5688 PO; +LEVE250T PO; -MECL-91 PO; +MELA1CAP9 PO; +NORT50CA PO; -NUTR50CA PO; +POLY335019 PO; +SERT50TA PO; -TRAZ1TAB52 PO; -XRL15 PO; +ZINC1TAB PO; +[UNRECOGNIZED DRUG - CODE] PO
--- NOTE | 2018-02-08 13:51 | DIAGNOSTIC IMAGING REPORT ---
CHEST 2 VIEWS ROUTINE CLINICAL HISTORY: J98.4 Pulmonary cavitary [id number] COMPARISON STUDY: 12/08/2017 FINDINGS: The cardiac and mediastinal contours remain stable. There is a 6.7 cm cavitary right upper lobe lesion/bulla with adjacent pleural thickening and subtle parenchymal density. There is mild superior right hilar retraction. Since the prior study, the patient has developed clustered left upper lobe nodular opacities, likely infectious/inflammatory.[ IMPRESSION: 1. 6.7 cm right upper lobe bulla/cavitary lesion with adjacent pleural thickening and subtle parenchymal density. Superinfection must be considered. 2. Interval development of clustered left upper lobe nodular opacities, likely infectious/inflammatory Electronically signed by: Carlo Napoles M.D. 02/08/2018 1:49 PM Dictated Date/Time: 02/08/2018 1:46 PM
== END | disposition home or self-care (01) ==
LOC: C.RAD1850 13:31
PROVIDERS: ATTEND Internal Medicine Critical Care Medicine
DX: J98.4 Other disorders of lung (principal)

== ENCOUNTER 2018-02-12 14:31 | Emergency (ER) | payer OTHER ==
[~2018-02-12] VITALS: Ht 180.3 cm; Wt 77.0 kg
[~2018-02-12 14:31] MED LIST changes: -CALC-478 PO; -MULT-506 PO
[2018-02-12 14:42] VITALS: TEMP 36.9; Ht 180.3 cm; Wt 77.0 kg
[2018-02-12] MEDS ORDERED: MULT-506 PO (14:53)
[2018-02-12] MEDS ORDERED: CALC-478 PO (14:53)
--- NOTE | 2018-02-12 15:46 | EMERGENCY ROOM VISIT NOTE ---
History Report prepared by Frandy: Abby Dhaliwal Under the Supervision of: Dr. Katelyn Dave M.D. First contact with patient: 14:55 Chief Complaint: OTHER COMPLAINT Stated Complaint: CATHERTER PINCHING OFF History of Present Illness The patient is a 32 year old male who presents to the Emergency Room with complaints of an episode of a blocked catheter that started today. The patient reports that he had a catheter put in through his suprapubic region a week and a half ago in preparation for a ureteral reconstruction. The patient states that the surgeon shortened his catheter four days ago. He states that the surgeon noted that his catheter was "blocked by gunk" and he was told to drink lemonade. He states that he believes that he was instructed to do so in order to increase his citric acid to help with the "break down of stuff in the bladder ". He notes that he has since stopped drinking lemonade because it started hurting his mouth. The patient states that he came to the ED today because he noticed a leaking trail of urine from his penis after exiting the shower. He states that at this time he noticed a kink in his catheter and he believes that is why it is not draining. He denies having a fever and feeling as though he as a full bladder. Source of History: patient Onset: Today Position: abdomen (suprapubic region), other (Penis) Quality: other (blocked catheter) Timing: other (episode) Modifying Factors (Worsening): other (kink in catheter) Associated Symptoms: No fevers Note: The patient complains of a sore mouth. The patient denies feeling as though he has a full bladder. Review of Systems See HPI for pertinent positives & negatives. A total of 6 systems reviewed and were otherwise negative. Past Medical & Surgical Medical Problems: (1) Cavitary lesion of lung (2) Multiple sclerosis (3) Multiple sclerosis (4) Multiple sclerosis exacerbation (5) Seizure Family History Cancer Diabetes mellitus Hypertension Lung disease Social History Smoking Status: Never Smoker Alcohol Use: none Marital Status: single Housing Status: lives with family Occupation Status: disabled Current/Historical Medications Scheduled Amantadine Hcl (Amantadine Hcl), 100 MG PO BID B-Complex W/ C & Folic Acid (Renal), 1 CAP PO QAM Tgafgog-Qsyygrdfj-Bmyp (Calcium & Magnesium + Zin 334-134-5 mg), 1 TAB PO DAILY Cholecalciferol (Vitamin D3), 400 UNITS PO QAM Levetiracetam (Keppra), Unknown Dose PO BID Multivitamin (Multivitamin), 1 TAB PO DAILY Nortriptyline (Pamelor), 100 MG PO HS Oxybutynin Chloride (Oxybutynin Chloride), 5 MG PO QID Sertraline (Zoloft), 50 MG PO QAM Teriflunomide (Aubagio), 14 MG PO QAM Scheduled PRN Melatonin (Melatonin), 10 MG PO HS PRN for Sleep Allergies Coded Allergies: Sulfanilamide (Verified Allergy, Severe, Neck pain; hives, 02/12/18) Clindamycin (Verified Allergy, Mild, Rash, 02/12/18) Physical Exam Vital Signs Date Time Temp Pulse Resp B/P (MAP) Pulse Ox O2 Delivery O2 Flow Rate FiO2 02/12/18 16:19 71 14 115/71 100 02/12/18 14:42 36.9 69 20 115/78 98 Room Air Physical Exam Vital signs reviewed. . General: Chronically ill-appearing 32-year-old male, in no significant distress. Abdomen: Soft, nontender, nondistended, positive bowel sounds. Suprapubic catheter in place. Has some bend in the catheter just prior to the connector. Once disconnected, a plug of sediment was visualized in the tube. Musculoskeletal: Atraumatic, no peripheral edema. Neurologic: Patient awake alert and oriented x 3 Skin: Warm, dry, no rash Medical Decision & Procedures ED Course 1509: Past medical records reviewed. The patient was evaluated in room A12B. A complete history and physical examination was performed. 1355: Upon reevaluation, the patient appeared to have improvement of his symptoms. I discussed findings with him. He verbalized agreement of the treatment plan. The patient was discharged home. Medical Decision Differential Diagnoses include mechanical catheter obstruction, infection, bleeding, stone. This patient was evaluated and appeared to be in no significant distress. Physical examination reveals evidence of a suprapubic catheter with sediment in the connector. Patient does have a small kink in the catheter tubing but it appears to be open. This was taped for a bit of support. The patient was advised to irrigate the catheter if needed when it is blocked. His father was present. They will follow-up with the urologist, Dr. Murillo this week for reevaluation. He will drink plenty of clear fluids and will return to the ED for worsening symptoms or any medical concerns. Medication Reconcilliation Current Medication List: was personally reviewed by me Blood Pressure Screening Patient's blood pressure: Normal blood pressure Blood pressure disposition: Did not require urgent referral Impression Primary Impression: Suprapubic catheter dysfunction Scribe Attestation The scribe's documentation has been prepared under my direction and personally reviewed by me in its entirety. I confirm that the note above accurately reflects all work, treatment, procedures, and medical decision making performed by me. Departure Information Dispostion Home / Self-Care Referrals Mani Chao M.D. (PCP) Forms HOME CARE DOCUMENTATION FORM, IMPORTANT VISIT INFORMATION, WORK / SCHOOL INSTRUCTIONS Patient Instructions My [facility] Additional Instructions Diagnosis: Suprapubic catheter obstruction Please drink plenty of clear fluids. He may place a lemon or orange in your ice water. Do not feel obligated to drink large quantities of lemonade. Irrigate the catheter as directed by nursing staff if it becomes obstructed. Follow-up with urology this week for reevaluation. Return to the emergency department for worsening of symptoms or any medical concerns.
[2018-02-12 16:19] VITALS: BP 115/71; PULSE 71; O2SAT 100
== END 2018-02-12 16:14 | disposition home or self-care (01) ==
LOC: C.EDB 14:33 → C.EDA 16:14
DX: T83.098A Other mechanical complication of other urinary catheter, initial encounter (principal); Y84.6 Urinary catheterization as the cause of abnormal reaction of the patient, or of later complication, without mention of misadventure at the time of the procedure; G35 Multiple sclerosis; Z80.9 Family history of malignant neoplasm, unspecified; Z83.3 Family history of diabetes mellitus; Z82.49 Family history of ischemic heart disease and other diseases of the circulatory system; Z83.6 Family history of other diseases of the respiratory system; Z79.899 Other long term (current) drug therapy; Z88.2 Allergy status to sulfonamides; Z88.1 Allergy status to other antibiotic agents

== ENCOUNTER 2018-12-20 05:37 | Inpatient (IN) ==
--- NOTE | 2018-11-29 15:21 | PAT Medication Instructions ---
Medication Instructions Date of Service November 29, 2018 Home Medications amantadine HCl 100 mg PO DAILY levetiracetam 500 mg PO DAILY nortriptyline 50 mg PO HS omeprazole 20 mg PO QAM oxybutynin chloride 10 mg PO BID sertraline 100 mg PO QAM trazodone 150 mg PO HS aspirin 81 mg PO QAM [id number]-yqeyfjoum-uxjs 1 tab PO QAM cholecalciferol (vitamin D3) 1,000 unit PO QAM multivitamin 1 tab PO QAM teriflunomide [Aubagio] 14 mg PO QAM ASK your prescriber and surgeon aspirin 81 mg PO QAM teriflunomide [Aubagio] 14 mg PO QAM DO NOT take the morning of surgery rbpugcp-[id number]-cjlg 1 tab PO QAM cholecalciferol (vitamin D3) 1,000 unit PO QAM multivitamin 1 tab PO QAM Take morning of surgery With a small sip of water, OTHERWISE NOTHING TO EAT OR DRINK AFTER MIDNIGHT: levetiracetam 500 mg PO DAILY omeprazole 20 mg PO QAM sertraline 100 mg PO QAM amantadine HCl 100 mg PO DAILY (continue as directed per Dr. John mao/anesthesiologist) Take evening before surgery nortriptyline 50 mg PO HS oxybutynin chloride 10 mg PO BID trazodone 150 mg PO HS Other Notes If you have any questions please call us at [phone] or [phone] or [phone] or [phone]
--- NOTE | 2018-11-30 10:42 | Anesthesiology Consultation ---
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 Patient states he was told reaction was due to the muscle relaxant given with surgery. He states no issues with subsequent urologic surgeries. Father with similar myalgias post-operatively. Most recent surgery: 02/01/18: LMA#5 unique/TIVA at [facility] done under MH precaut ions per anesthesiologist recommendation due to unclear anesthesia reaction hx. Discussed with Dr. Reyna-- given patient did well with most recent surgery, will use same MH/pseudocholinesterase deficiency precautions/management. OR made aware to scheduled as first case with MH precautions. Of note, patient taking Amantadine as off label for management of multiple sclerosis. Discussed with Dr. Stephens- recommendation to continue as directed perioperatively. Patient made aware. Chart Review Chart Review: Acceptable Risk for Surgery and Patient seen in Pre Admission Testing Teaching & Discussion Pre-Anesthesia Teaching/Discussion Notes: Instructed NPO after midnight before surgery,except medications with 15 cc of water. Medication instructions provided according to the PAT guidelines. History Surgery Operation Date: 12/20/18 07:30 Proposed Procedures p Robotic Right Video Assisted Thoracoscopy with Right Upper Lobe Wedge Resection, Possible Right Upper Lobectomy with Mediastinal Lymphadenectomy - Eugene Hsieh MD, FACS Height/Weight Height: 5 ft 11 in Weight: 82.9 kg Allergies Allergy/AdvReac Type Severity Reaction Status Date / Time sulfanilamide Allergy Severe Neck pain; Verified 11/27/18 13:51 hives clindamycin Allergy Mild Rash Verified 11/27/18 13:51 Medications Home Medications Medication Instructions Recorded Confirmed Last Taken amantadine HCl 100 mg PO DAILY 10/04/18 11/27/18 Unknown levetiracetam 500 mg PO DAILY 10/04/18 11/27/18 Unknown nortriptyline 50 mg PO HS 10/04/18 11/27/18 Unknown omeprazole 20 mg PO QAM 10/04/18 11/27/18 Unknown oxybutynin chloride 10 mg PO BID 10/04/18 11/27/18 Unknown sertraline 100 mg PO QAM 10/04/18 11/27/18 Unknown trazodone 150 mg PO HS 10/04/18 11/27/18 Unknown aspirin 81 mg PO QAM 11/27/18 11/27/18 Unknown mcpixvi-iatnlxyfr-kjjw 1 tab PO QAM 11/27/18 11/27/18 Unknown cholecalciferol (vitamin D3) 1,000 unit PO QAM 11/27/18 11/27/18 Unknown [Vitamin D3] multivitamin 1 tab PO QAM 11/27/18 11/27/18 Unknown teriflunomide [Aubagio] 14 mg PO QAM 11/27/18 11/27/18 Unknown Past Medical History Medical History History of pulmonary embolus (PE) 3+ YEARS AGO (FOLLOWING PNA)= AC X 6 MONTHS; NO ISSUES SINCE Multiple sclerosis LEGALLY BLIND; BALANCE ISSUES, LEFT SIDED TREMORS (OFF LABEL TREATMENT FOR MS: AMANTADINE) Neuropathy UE'S/LE'S Seizure LAST SEIZURE 1 YEAR AGO Exercise / Class Metabolic Activity III < 4 Walking/Shop/Light housework (USES CANE PRN) Past Surgical History Surgical History History of surgery URETHRAL SURGERY Past Anesthesia History 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 Patient states he was told reaction was due to the muscle relaxant given with surgery. He states no issues with subsequent urologic surgeries. Father with similar myalgias post-operatively. Most recent surgery: 02/01/18: LMA#5 unique/TIVA done under MH precautions per anesthesiologist recommendation due to unclear anesthesia reaction hx. History of PONV No Hx of PONV and No Hx of Motion Sickness Social History Smoking Status: Never smoker Do You Dip or Chew Tobacco: No Hx Alcohol Use: Yes Alcohol type: other alcohol intake frequency: holidays/special occasions only Hx Substance Use: No substance use type: does not use Review of Systems Patient denies chest pain, shortness of breath, cough, wheezing, palpitations. Physical Exam Vital Signs VITALS BP 108/74 P 77 TEMP 98.3 SP02 96%RA RESP 16 PHYSICAL Full neck and c-spine range of motion. Full TMJ range of motion. TMD 3.5 finger breaths Mallampati Score 2 Dentition: upper front teeth missing, poor dentition Lungs: clear throughout to auscultation Cardiac: regular rate and rhythm, no murmurs noted Spine: normal Extremities: upper extremity tremors noted Trimmed delgado. Testing Laboratory Results 11/30/18 11:15 11/30/18 11:15 11/30/18 11:15 Blood Type B Positive Antibody Screen NEGATIVE Electrocardiogram Date: 11/30/18 Findings: + NSR @ (78) Other Testing Chest CT: 10/18/18: 7 cm cavity in the right upper lobe. Based on the thin wall, this is suspected to represent a benign cavitary lesion likely a pneumatocele from prior reported infection especially given the surrounding scarring and bronchiectasis. 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 Trace groundglass infiltrate in the periphery of the left upper lobe may be infectious or inflammatory.
[2018-11-30 12:26] LABS: Basophils # (auto) 0.04 K/uL (0-0.2); Basophils % (auto) 0.8 %; Eosinophils # (auto) 0.32 K/uL (0-0.5); Eosinophils % (auto) 6.1 %; Hematocrit (blood only) 45.7 % (42-52); Hemoglobin 15.9 g/dL (14.0-18.0); Immature Granulocytes # (auto) 0.01 K/uL (0.00-0.02); Immature Granulocytes % (auto) 0.2 %; Lymphocytes % (auto) 26.6 %; Mean Corpuscular Hgb Conc 34.8 g/dL (32-36); Mean Corpuscular Volume 86.9 fL (80-100); Mean Platelet Volume 9.7 fL (7.4-10.4); Monocytes # (auto) 0.72 K/uL (0.11-0.59); Monocytes % (auto) 13.7 %; Neutrophils # (auto) 2.77 K/uL (1.4-6.5); Neutrophils % (auto) 52.6 %; Platelet Count 266 K/uL (130-400); RDW Coefficient of Variation 14.1 % (11.5-14.5); RDW Standard Deviation 44.6 fL (36.4-46.3); Red Blood Count 5.26 M/uL (4.7-6.1); White Blood Count 5.26 K/uL (4.8-10.8)
[2018-11-30 12:36] LABS: BUN Creatinine Ratio 4.9 (10-20); Calcium 8.7 mg/dl (8.5-10.1); Est GFR (African American) 127.9; Est GFR (Non-African American) 110.3; Potassium 4.3 mmol/L (3.5-5.1)
[2018-12-20] MEDS ORDERED: LR 15ML/HR IV SCH (06:00)
[2018-12-20] MEDS ORDERED: PROPOFOL IV EMULSION 10 MG/ML 100 ML VIAL IV ONE (06:18)
[2018-12-20] MEDS ORDERED: REMIFENTANIL HCL 1 MG VIAL ONE ×3 (06:19→09:04)
[2018-12-20] MEDS ORDERED: ACETAMINOPHEN 1000 MG/100 ML IV IV ONE (06:19)
[2018-12-20] MEDS ORDERED: KETAMINE HCL INJ 50 MG/ML 10 ML VIAL ONE (06:39)
[2018-12-20] MEDS ORDERED: GLYCOPYRROLATE 0.2 MG/ML VIAL ONE (06:39)
[2018-12-20] MEDS ORDERED: ROCURONIUM BROMIDE 10 MG/ML 5 ML VIAL ONE (06:39)
[2018-12-20] MEDS ORDERED: NEOSTIGMINE METHYLSULFATE 5 MG/5 ML SYR ONE (06:39)
[2018-12-20] MEDS ORDERED: PROPOFOL IV EMULSION 10 MG/ML 20 ML VIAL IV ONE ×2 (06:39→08:46)
[2018-12-20] MEDS ORDERED: ONDANSETRON INJ 2 MG/ML 2 ML VIAL ONE (06:39)
[2018-12-20] MEDS ORDERED: fentaNYL citrate 100 MCG/2 ML VIAL ONE ×2 (06:39→10:47)
[2018-12-20] MEDS ORDERED: MIDAZOLAM HCL 1 MG/ML 2ML VIAL ONE (06:39)
--- NOTE | 2018-12-20 07:13 | History & Physical Report ---
Date of Service December 20, 2018 Assessment & Plan (1) Cavitary lesion of lung: Robot-assisted thoracoscopic right upper lobectomy Present on Admission?: Yes History of Present Illness This is a 33-year-old male with multiple sclerosis and some learning disabilities who presented to my office back on 11/20/2018 on referral from pulmonology. Patient history of a cavitary lesion in his right upper lobe which is been present for a long period of time has had coughing upper respiratory symptoms for about 2 years. 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 He also has some tree-in-bud abnormalities in the rest of his right upper lobe. I had a very long discussion with the patient and his father in the office and on the morning of surgery. We are going to proceed with robot-assisted thoracoscopic right upper lobectomy. We discussed possible complications including prolonged air leak pneumonia deep vein thrombosis with pulmonary emboli prolonged air leaks and infections among others. They understand well. We will proceed with surgery this morning. Primary Care Provider: Mani Chao MD Allergies Allergy/AdvReac Type Severity Reaction Status Date / Time sulfanilamide Allergy Severe Neck pain; Verified 12/20/18 06:07 hives clindamycin Allergy Mild Rash Verified 12/20/18 06:07 Home Medications Home Medications Medication Instructions Recorded Confirmed Type amantadine HCl 100 mg PO DAILY 10/04/18 12/20/18 History levetiracetam 500 mg PO DAILY 10/04/18 12/20/18 History nortriptyline 50 mg PO HS 10/04/18 12/20/18 History omeprazole 20 mg PO QAM 10/04/18 12/20/18 History oxybutynin chloride 10 mg PO BID 10/04/18 12/20/18 History sertraline 100 mg PO QAM 10/04/18 12/20/18 History trazodone 150 mg PO HS 10/04/18 12/20/18 History aspirin 81 mg PO QAM 11/27/18 12/20/18 History kiuezac-xvlrsnsmo-hwpm 1 tab PO QAM 11/27/18 12/20/18 History cholecalciferol (vitamin D3) 1,000 unit PO QAM 11/27/18 12/20/18 History [Vitamin D3] multivitamin 1 tab PO QAM 11/27/18 12/20/18 History teriflunomide [Aubagio] 14 mg PO QAM 11/27/18 12/20/18 History coenzyme Q10 [CoQ-10] 100 mg PO DAILY 12/20/18 12/20/18 History vitamin B complex [B Complex 1] 1 tab PO DAILY 12/20/18 12/20/18 History Past Med/Surg History Medical History History of pulmonary embolus (PE) 3+ YEARS AGO (FOLLOWING PNA)= AC X 6 MONTHS; NO ISSUES SINCE Multiple sclerosis LEGALLY BLIND; BALANCE ISSUES, LEFT SIDED TREMORS (OFF LABEL TREATMENT FOR MS: AMANTADINE) Neuropathy UE'S/LE'S Seizure LAST SEIZURE 1 YEAR AGO Surgical History History of surgery URETHRAL SURGERY Social History Preferred Language: Albanian Communication Ability: Effective Lead Pharmacy Technician Required: No Beliefs That Will Affect Care: None Current Living Situation: Family Other Information That Helps Us Care for You: No Feels Safe at Home: Yes Safety Concerns: Feels Safe At This Time Smoking Status: Never smoker Do You Dip or Chew Tobacco: No Second Hand Exposure: No Tobacco Cessation Education Requested by Patient: No Hx Alcohol Use: Yes Alcohol type: other Hx Substance Use: No Review of Systems Review of Systems: I had a long talk with the patient. He has indwelling Andino catheter. He also has a persistent cough. He denies fevers or chills. He denies chest pain or palpitations. He had no new neurologic symptoms although patient is legally blind. He said no change in his vision or his hearing recently. He does have a history of seizures but has had none recently. He denies any GI symptoms such as nausea vomiting or diarrhea. He has a small abrasion on his right chest under his right breast but it is not in the area of her surgery and is very superficial. Indwelling Andino catheter. Denies any fevers or chills recently. No hemoptysis. Denies abdominal pain. Physical Exam Physical Exam: Patient awake alert patient in no acute distress. His sclera and conjunctiva are normal. He has no nasolabial flattening. His tongue is midline. Teeth are in poor repair. I see no abscesses. His neck is supple. He has no supra clavicular cervical lymphadenopathy. He has no tracheal deviation or neck vein distention. Regular rate and rhythm his heart. His abdomen is soft and nontender. He really does not have any abnormal breath sounds rales. His abdomen soft nontender. He has no peripheral edema. Indwelling Andino catheter. He has a 1.8 x 2.0 cm superficial abrasion with eschar under his right breast. There is no surrounding erythema or fluctuance. Patient is slow to answer questions and appears to understand what we are going to proceed with today. He also has difficulty with his gait but she is a cane. He can move all extremities to command. Results & Data Vital Signs (Past 12 Hours) Vital Signs Temp Pulse Resp BP Pulse Ox 12/20/18 06:10 37 C 76 20 99/81 L 96
[2018-12-20] MEDS ORDERED: BUPIVACAINE 0.5 % 5 MG/1 ML MPF 30ML VIAL ONE (07:16)
[2018-12-20] MEDS ORDERED: SODIUM CHLORIDE 0.9% PF 50 ML VIAL ONE (07:16)
[2018-12-20] MEDS ORDERED: BUPIVACAINE LIPOSOME 1.3% 266 MG/20 ML VIAL ONE (07:16)
[2018-12-20] MEDS ORDERED: ATROPINE SULFATE 0.1 MG/ML 10ML SYR IV PRN (08:20)
[2018-12-20] MEDS ORDERED: ONDANSETRON INJ 2 MG/ML 2 ML VIAL IV PRN ×2 (08:20→13:30)
[2018-12-20] MEDS ORDERED: PROMETHAZINE HCL 6.25 MG in SODIUM CHLORIDE 0.9% 50 ML IV PRN (08:20)
[2018-12-20] MEDS ORDERED: ePHEDrine sulfate 50 MG/ML AMP IV PRN (08:20)
[2018-12-20] MEDS ORDERED: HYDROmorphone INJ 2 MG/ML SYR/VIAL IV PRN (08:20)
[2018-12-20] MEDS ORDERED: HYDROmorphone INJ 2 MG/ML SYR/VIAL ONE (08:48)
[2018-12-20] MEDS ORDERED: CEFAZOLIN 2000MG 2,000 MG/15 ML SYR IV ONE (08:49)
[2018-12-20] MEDS ORDERED: SURGICEL ABSORB HEMOSTAT 2IN X 14IN TOP ONE (09:32)
[2018-12-20] MEDS ORDERED: DEXAMETHASONE SOD INJ 4 MG/ML VIAL ONE (09:51)
[2018-12-20] MEDS ORDERED: CEFAZOLIN 250 MG/ML 1 GM VIAL ONE (10:47)
--- NOTE | 2018-12-20 11:23 | Post Operative Brief Note ---
Immediate Post Op Note v1 Date of Surgery December 20, 2018 Pre & Post Diagnosis Operation Date: 12/20/18 07:30 Pre-Op Diagnosis: Cavitary Lestion Right Lung, Multiple Sclerosis Post-Op Diagnosis: Cavitary Lestion Right Lung, Multiple Sclerosis Procedure Operation Date: 12/20/18 07:30 Actual Procedures p Robotic Right Video Assisted Thoracoscopy with Right Upper Lobectomy with Mediastinal Lymphadenectomy(Right) - Eugene Hsieh MD, FACS Surgeon Eugene Hsieh MD, FACS Design Quality Engineer Georgina DAVIS Estimated Blood Loss 75 Findings Consistent with Post-Op Diagnosis Drains Andino Catheter (Patient arrives to OR with Andino catheter, patent and draining clear yellow urine. Anesthesia to monitor)
[2018-12-20] MEDS ORDERED: METOCLOPRAMIDE HCL INJ 5 MG/ML 2 ML VIAL IV ONE (11:50)
[2018-12-20] MEDS ORDERED: METOCLOPRAMIDE HCL INJ 5 MG/ML 2 ML VIAL ONE (12:08)
--- NOTE | 2018-12-20 12:13 | XRay Report ---
XR chest 1V portable HISTORY: 33 years-old Male RUL follow-up study in a patient with recent right lung surgery COMPARISON: Chest CT 10/18/2018 TECHNIQUE: Portable AP view of the chest FINDINGS: Status post resection of the previously noted right upper lobe mass. Right-sided chest tube is noted, distal tip terminating adjacent to the right lung apex. Small right apical pneumothorax, pleural sep aration of 2.1 cm. Mild right hemidiaphragmatic elevation. Subsegmental right lung base opacities wit h probable trace right pleural effusion. Left lung is clear. Minimal subcutaneous emphysema about the right chest wall. Bones appear normal. IMPRESSION: 1. Status post resection of the right upper lobe mass. 2. Chest tube terminates adjacent to the right lung apex. 3. Small right apical pneumothorax. The above report was generated using voice recognition software. It may contain grammatical, syntax o r spelling errors. Electronically signed by: Tylor Valdovinos M.D. 12/20/2018 12:12 PM
[2018-12-20] MEDS: fentaNYL citrate 100 MCG/2 ML VIAL IV PRN ×4 (12:19→12:38)
--- NOTE | 2018-12-20 12:51 | Anesthesiology Progress Note ---
Date of Service December 20, 2018 Anesthesia Post Procedure Vital Signs Vital Signs: Temp Pulse Pulse Pulse Resp BP BP 12/20/18 12:40 100 H 26 H 128/89 12/20/18 12:35 97 H 15 132/78 12/20/18 12:30 99 H 15 138/89 12/20/18 12:25 92 H 12 133/78 12/20/18 12:20 91 H 21 144/94 H 12/20/18 12:15 92 H 14 150/85 H 12/20/18 12:10 94 H 18 141/80 H 12/20/18 12:06 96 H 17 148/86 H 12/20/18 12:05 89 14 12/20/18 12:00 100 H 16 157/93 H 12/20/18 11:55 96 H 14 139/96 12/20/18 11:52 93 H 18 12/20/18 11:50 92 H 14 142/78 H 12/20/18 11:49 35.9 C L 96 H 16 147/85 H 12/20/18 06:10 37 C 76 20 99/81 L Pulse Ox 12/20/18 12:40 98 12/20/18 12:35 95 12/20/18 12:30 97 12/20/18 12:25 100 12/20/18 12:20 100 12/20/18 12:15 100 12/20/18 12:10 100 12/20/18 12:06 100 12/20/18 12:05 100 12/20/18 12:00 100 12/20/18 11:55 100 12/20/18 11:52 100 12/20/18 11:50 100 12/20/18 11:49 99 12/20/18 06:10 96 Pain Intensity Right Chest: Pain Intensity: 6 Transfer of Care Handoff Completed per policy Notes Mental Status: alert / awake / arousable Patient Amnestic to Procedure: Yes Nausea / Vomiting: adequately controlled Pain: adequately controlled Airway Patency, RR, SpO2: stable & adequate BP & HR: stable & adequate Hydration State: stable & adequate Anesthetic Complications: no major complications apparent
[2018-12-20] MEDS ORDERED: KETOROLAC TROMETHAMINE 15 MG/ML VIAL IV PRN (13:30)
[2018-12-20] MEDS: ACETAMINOPHEN 1,000 MG/100 ML VIAL IV SCH ×2 (14:36→21:41)
--- NOTE | 2018-12-20 15:12 | Operative Report ---
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 PROCEDURE: Robot-assisted thoracoscopic right upper lobectomy with mediastinal lymphadenectomy. SURGEON: Dr. Hsieh. PUBLIC WELFARE WORKER: RYAN Panchal ( Tyler was present for the entire case). ANESTHESIA: General anesthesia with endotracheal intubation with a double lumen tube. SPECIFICS OF PROCEDURE AND FINDINGS: The patient is a 33-year-old male with multiple sclerosis, who was diagnosed 9 years ago, has been treated with immunosuppressive therapy. For more than 2 years, he has had a cavitary lesion in his right upper lobe and has had a persistent cough. He has been unresponsive on antifungals and antibiotics. 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 We had a long talk about this in the office. We are going to proceed with a right upper lobectomy. We discussed a wedge resection; however, he has got inflammatory changes in his right upper lobe, which are rather diffuse and I told the patient and his father quite frankly I was concerned about leaving behind diseased lung. His middle lobe and lower lobe appeared to be unaffected. For this reason, I felt that we would proceed with a lobectomy. On 12/20/2018, the patient underwent an uncomplicated robot-assisted thoracoscopic surgery with extensive lysis of adhesions and a right upper lobectomy with mediastinal lymph node dissection. He tolerated it quite well. Blood loss was negligible and he had a negligible air leak at the conclusion of the case. DESCRIPTION OF PROCEDURE: The patient was brought to the Operating Room and laid in supine position. General anesthesia induced and endotracheal intubation was performed with a double lumen tube. Arterial line was placed. The patient was placed in the left lateral decubitus position. The right chest prepped and draped in usual sterile fashion after appropriate antibiotics had been given and timeout had been called and the patient has been draped. A 5 mm trocar was placed just a bit anterior to the mid axillary line in the eighth interspace. We could see we were in the chest cavity and carbon dioxide was insufflated. There were marked adhesions from the upper lobe to the chest wall.and_ the lower lobe to the upper lobe. I put the camera port just anterior to the midaxillary line.. I put an 8 mm port anterior and posterior, another 5 mm port more posteriorly close to the spine and then an assistance port 15 mm port just above the diaphragm anteriorly. We switched the 5 mm port to a camera port, which was about 12 mm. A 266 mg of Exparel have been mixed with 30 mL of 0.5% bupivacaine and 250 mL of saline. This was used to inject each of the [address] them and then performed an intercostal block from the 2nd to the 11th rib. This was done under thoracoscopic guidance. We then docked the robot. Upon going in, we used a 30-degree scope and I had excellent visualization and I carefully took down these marked adhesions of the upper lobe to the chest wall. We really did not violate the parietal pleura. We were able to separate this, which was very nice with the robot. After we took this down meticulously with very little in the way of blood loss, we completely freed up the upper lobe. There were also adhesions of lower lobe. We were able to sharply and bluntly take these down. The lobe was quite thickened. We did not open this cavity while we were doing our dissection. Inferior pulmonary ligament was taken down and level 8 and level 9 nodes taken. Level 7 node was taken and then with meticulous dissection, I was able to get the entire level 11 packet nodes out between the upper lobe takeoff in the bronchus intermedius. While doing this, I was able to easily identify the A3 segment in the right pulmonary artery. The attention was then turned towards the level 2 and level 4 nodes above the azygos vein. I dissected this out and sent these off. I then freed up under the azygos vein and took a level 10 node out from here and then I dissected out the artery away from the bronchus as well as the vein. This went very nicely and I was able to fire a stapler across the apical anterior branch without difficulty. This took care of our A1 and A2 segments. Attention was then turned towards the vein and I was easily able to separate the superior pulmonary vein from the confluence with the middle lobe vein. An Endo-MAYDA stapler fired across this. We then had the A3 segment left in the bronchus and we went ahead and took the bronchus first as it laid nicer. This was done without difficulty with Endo-MAYDA stapler and then the A3 segment was divided with Endo-MAYDA stapler. I then fired Endo-MAYDA stapler several times to separate the middle lobe from the upper lobe as well as the middle lobe from the lower lobe. We then checked for air leaks and really did not see any. I then placed an Endobag in the chest and placed the specimen in. We pulled out the assistance port. We had to open this up to about 5 cm as we could not really get it out. After getting it out, I then opened up the mycetoma and sent off some of this for culture. Particularly concerning we may have a fungal culture or perhaps even an acid fast bacilli. We then sent this off to Pathology. A 0 Vicryl V-Loc suture was used to close the assistance port muscle layers which had opened. A chest tube was then placed and the camera port directed towards the apex, sutured in place with heavy silk suture. This is a 24-Georgian chest tube. A 0 Vicryl was used to close the deeper layers of the 8 mm ports and 4-0 Monocryl was used in running subcuticular fashion to approximate all the wound edges. The patient tolerated the procedure quite well. Transferred to the Postanesthesia Care Unit in a stable condition. I attest to the content of the Intraoperative Record and any orders documented therein. Any exceptions are noted below. CAROLA
[2018-12-20] MEDS: D5W AND 1/2NSS 1,000 ML IV SCH (16:41)
[2018-12-20] MEDS: AUBAGIO PO SCH (18:37)
[2018-12-20] MEDS: DOCUSATE SODIUM 100 MG CAP PO SCH (20:07)
[2018-12-20] MEDS: TRAZODONE HCL 50 MG TAB PO SCH (20:07)
[2018-12-20] MEDS: NORTRIPTYLINE HCL 25 MG CAP PO SCH (20:07)
[2018-12-20] MEDS: OXYBUTYNIN CHLORIDE XL 5 MG TABCR PO SCH (20:07)
[2018-12-20] MEDS: METOCLOPRAMIDE HCL INJ 5 MG/ML 2 ML VIAL IV SCH (21:41)
[2018-12-21] MEDS: D5W AND 1/2NSS 1,000 ML IV SCH (02:35)
[2018-12-21] MEDS: ACETAMINOPHEN 1,000 MG/100 ML VIAL IV SCH (05:50)
[2018-12-21] MEDS: METOCLOPRAMIDE HCL INJ 5 MG/ML 2 ML VIAL IV SCH ×2 (05:50→12:36)
[2018-12-21 06:00] LABS: Basophils # (auto) 0.01 K/uL (0-0.2); Basophils % (auto) 0.1 %; Eosinophils # (auto) 0.03 K/uL (0-0.5); Eosinophils % (auto) 0.3 %; Hematocrit (blood only) 38.3 % (42-52); Hemoglobin 12.9 g/dL (14.0-18.0); Immature Granulocytes # (auto) 0.02 K/uL (0.00-0.02); Immature Granulocytes % (auto) 0.2 %; Lymphocytes # (auto) 0.79 K/uL (1.2-3.4); Lymphocytes % (auto) 7.8 %; Mean Corpuscular Volume 86.7 fL (80-100); Mean Platelet Volume 9.6 fL (7.4-10.4); Monocytes # (auto) 1.75 K/uL (0.11-0.59); Monocytes % (auto) 17.4 %; Neutrophils # (auto) 7.47 K/uL (1.4-6.5); Neutrophils % (auto) 74.2 %; Platelet Count 191 K/uL (130-400); RDW Coefficient of Variation 13.8 % (11.5-14.5); RDW Standard Deviation 43.4 fL (36.4-46.3); Red Blood Count 4.42 M/uL (4.7-6.1); White Blood Count 10.07 K/uL (4.8-10.8)
[2018-12-21 06:01] LABS: Mean Corpuscular Hgb Conc 33.7 g/dL (32-36)
[2018-12-21 06:16] LABS: BUN Creatinine Ratio 11.1 (10-20); Calcium 7.7 mg/dl (8.5-10.1); Creatinine Clr Calc Pharmacy 151.2 ml/min; Est GFR (African American) 140.5; Est GFR (Non-African American) 121.2; Potassium 3.8 mmol/L (3.5-5.1)
[2018-12-21 06:18] LABS: INR 1.2 (0.9-1.1); Partial Thromboplastin Time 26.2 Seconds (21.0-31.0); Prothrombin Time 11.7 Seconds (9.0-12.0)
--- NOTE | 2018-12-21 07:10 | XRay Report ---
XR chest 1V portable HISTORY: 33 years-old Male RUL follow-up study in a patient with right-sided pneumothorax COMPARISON: Chest radiograph 12/20/2018 TECHNIQUE: Portable AP view of the chest FINDINGS: Postoperative changes of the right lung. Right-sided chest tube is again noted terminating adjacent t o the right lung apex. The previously described right pneumothorax is not definitively seen on today' s study. Postoperative changes of the right lung. Small right pleural effusion with right hemidiaphra gmatic elevation right lung base opacities persist. Cardiomediastinal and hilar silhouettes are uncha nged. The left lung is clear. The bones appear intact. IMPRESSION: 1. Postoperative changes of the right lung with stable positioning of the right-sided chest tube. 2. Previously noted small right pneumothorax is not identified on today's exam. 3. Small right pleural effusion. The above report was generated using voice recognition software. It may contain grammatical, syntax o r spelling errors. Electronically signed by: Tylor Vladovinos M.D. 12/21/2018 7:09 AM
[2018-12-21] MEDS: DOCUSATE SODIUM 100 MG CAP PO SCH ×2 (08:05→21:29)
[2018-12-21] MEDS: levETIRAcetam 500 MG TAB PO SCH (08:05)
[2018-12-21] MEDS: AMANTADINE HCL 100 MG CAPSULE PO SCH (08:05)
[2018-12-21] MEDS: MULTIVITAMIN TAB PO SCH (08:05)
[2018-12-21] MEDS: ASPIRIN 81 MG ECTAB PO SCH (08:05)
[2018-12-21] MEDS: VITAMIN B COMPLEX TAB PO SCH (08:05)
[2018-12-21] MEDS: SERTRALINE HCL 100 MG TABLET PO SCH (08:05)
[2018-12-21] MEDS: CHOLECALCIFEROL 1,000 UNITS TAB PO SCH (08:05)
[2018-12-21] MEDS: OXYBUTYNIN CHLORIDE XL 5 MG TABCR PO SCH ×2 (08:06→21:29)
[2018-12-21] MEDS: AUBAGIO PO SCH (08:06)
[2018-12-21] MEDS: PANTOprazole 40 MG TAB PO SCH (08:06)
[2018-12-21] MEDS: ENOXAPARIN INJ 40 MG/0.4 ML SYR SQ SCH (08:56)
[2018-12-21] MEDS ORDERED: NON-FORMULARY MEDICATION (Coenzyme Q10 [Coq-10] 100 MG) PO SCH (09:00)
[2018-12-21] MEDS ORDERED: NON-FORMULARY MEDICATION (Calcium-Magnesium-Zinc 1 TAB) PO SCH (09:00)
[2018-12-21] MEDS: MoRPHine SULFATE 2 MG/ML CARP IV PRN ×2 (10:01→15:44)
--- NOTE | 2018-12-21 10:36 | Anesthesiology Progress Note ---
Date of Service December 21, 2018 Anesthesia Post Procedure Vital Signs Vital Signs: Temp Pulse Pulse Pulse Pulse Pulse Resp 12/21/18 09:25 36.4 C L 74 18 12/21/18 05:20 36.7 C 70 19 12/21/18 01:27 36.9 C 71 19 12/20/18 23:20 36.8 C 83 20 12/20/18 21:31 36.8 C 76 18 12/20/18 19:20 37.0 C 95 H 18 12/20/18 17:20 36.7 C 97 H 18 12/20/18 16:30 36.7 C 84 18 12/20/18 15:20 37.0 C 91 H 20 12/20/18 14:30 36.8 C 95 H 18 12/20/18 14:01 36.4 C L 93 H 17 12/20/18 13:20 36.7 C 100 H 16 12/20/18 13:14 36.4 C L 12/20/18 13:05 113 H 14 12/20/18 13:01 108 H 14 12/20/18 13:00 97 H 14 12/20/18 12:55 106 H 14 12/20/18 12:50 100 H 14 12/20/18 12:45 105 H 14 12/20/18 12:40 100 H 26 H 12/20/18 12:35 97 H 15 12/20/18 12:30 99 H 15 12/20/18 12:25 92 H 12 12/20/18 12:20 91 H 21 12/20/18 12:15 92 H 14 12/20/18 12:10 94 H 18 12/20/18 12:06 96 H 17 12/20/18 12:05 89 14 12/20/18 12:00 100 H 16 12/20/18 11:55 96 H 14 12/20/18 11:52 93 H 18 12/20/18 11:50 92 H 14 12/20/18 11:49 35.9 C L 96 H 16 BP BP Pulse Ox 12/21/18 09:25 113/75 96 12/21/18 05:20 134/81 95 12/21/18 01:27 112/61 95 12/20/18 23:20 99/55 L 95 12/20/18 21:31 125/72 94 12/20/18 19:20 132/74 95 12/20/18 17:20 133/81 97 12/20/18 16:30 131/79 98 12/20/18 15:20 128/78 97 12/20/18 14:30 113/74 95 12/20/18 14:01 116/73 100 12/20/18 13:20 124/73 99 12/20/18 13:14 94 12/20/18 13:05 119/90 98 12/20/18 13:01 117/77 95 12/20/18 13:00 92 12/20/18 12:55 128/79 92 12/20/18 12:50 142/76 H 95 12/20/18 12:45 117/73 95 12/20/18 12:40 128/89 98 12/20/18 12:35 132/78 95 12/20/18 12:30 138/89 97 12/20/18 12:25 133/78 100 12/20/18 12:20 144/94 H 100 12/20/18 12:15 150/85 H 100 12/20/18 12:10 141/80 H 100 12/20/18 12:06 148/86 H 100 12/20/18 12:05 100 12/20/18 12:00 157/93 H 100 12/20/18 11:55 139/96 100 12/20/18 11:52 100 12/20/18 11:50 142/78 H 100 12/20/18 11:49 147/85 H 99 Notes Mental Status: alert / awake / arousable and participated in evaluation Nausea / Vomiting: adequately controlled Pain: adequately controlled Airway Patency, RR, SpO2: stable & adequate BP & HR: stable & adequate Hydration State: stable & adequate
[2018-12-21] MEDS: ACETAMINOPHEN 325 MG TAB PO SCH ×2 (12:35→18:00)
--- NOTE | 2018-12-21 12:42 | Progress Note ---
DATE: 12/21/2018 Mr. Carter was seen today 1 day after a robot-assisted thoracoscopic right upper lobectomy. He has done very well. He does not have an air leak. He is on room air. He has excellent breath sounds. His x-ray looks good. He did drain almost 500 mL through his chest tube. All in all, I am quite pleased with him. His labs looked good and he looks quite good. We are going to stop his IVs today and continue to get him up moving. If his drainage drops, we will probably pull his tube out in the morning and let him go home.
[2018-12-21] MEDS: NORTRIPTYLINE HCL 25 MG CAP PO SCH (21:29)
[2018-12-21] MEDS: TRAZODONE HCL 50 MG TAB PO SCH (21:29)
[2018-12-22] MEDS: ACETAMINOPHEN 325 MG TAB PO SCH ×3 (00:05→12:54)
--- NOTE | 2018-12-22 07:30 | XRay Report ---
XR chest 1V portable CLINICAL HISTORY: RUL COMPARISON STUDY: Chest radiograph December 21, 2018. FINDINGS: Right-sided chest tube is in place. Postoperative findings within the right lung with fibro ids are noted. A small right pleural effusion is noted. No pneumothorax is identified. No evidence fo r pulmonary edema. Cardiomediastinal silhouette is normal. IMPRESSION: Right chest tube in place. No pneumothorax. Small right pleural effusion. Electronically signed by: Yoni Fung M.D. 12/22/2018 7:29 AM
[2018-12-22] MEDS: AUBAGIO PO SCH (09:36)
[2018-12-22] MEDS: levETIRAcetam 500 MG TAB PO SCH (09:38)
[2018-12-22] MEDS: DOCUSATE SODIUM 100 MG CAP PO SCH (09:38)
[2018-12-22] MEDS: PANTOprazole 40 MG TAB PO SCH (09:38)
[2018-12-22] MEDS: VITAMIN B COMPLEX TAB PO SCH (09:38)
[2018-12-22] MEDS: CHOLECALCIFEROL 1,000 UNITS TAB PO SCH (09:38)
[2018-12-22] MEDS: SERTRALINE HCL 100 MG TABLET PO SCH (09:38)
[2018-12-22] MEDS: ASPIRIN 81 MG ECTAB PO SCH (09:38)
[2018-12-22] MEDS: MULTIVITAMIN TAB PO SCH (09:38)
[2018-12-22] MEDS: AMANTADINE HCL 100 MG CAPSULE PO SCH (09:39)
[2018-12-22] MEDS: OXYBUTYNIN CHLORIDE XL 5 MG TABCR PO SCH (09:39)
[2018-12-22] MEDS: ENOXAPARIN INJ 40 MG/0.4 ML SYR SQ SCH (09:39)
[2018-12-22] MEDS: OXYCODONE HCL IR 5 MG TAB (IMMEDIATE RELEASE) PO PRN ×2 (10:44→17:05)
--- NOTE | 2018-12-22 15:40 | XRay Report ---
XR chest 1V portable CLINICAL HISTORY: 33 years-old Male presenting with chest tube removal. TECHNIQUE: Portable upright AP view of the chest was obtained. COMPARISON: 12/22/2018. FINDINGS: Removal of the right pleural effusion. Cardiomediastinal silhouette normal. Elevation of the right he midiaphragm with associated right basilar opacity. Suture margin noted in the right apex. Right pleur al effusion noted. No pneumothorax. Osseous structures normal. Upper abdomen normal. IMPRESSION: 1. Removal of the right pleural effusion. No pneumothorax. 2. Right basilar atelectasis. Electronically signed by: Mina Pringle M.D. 12/22/2018 3:39 PM
--- NOTE | 2018-12-23 00:44 | Discharge Summary ---
DISCHARGE DIAGNOSES: 1. 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 2. Multiple sclerosis. 3. Legal blindness. HOSPITAL COURSE: This is a very nice man who has some learning disabilities and multiple sclerosis for several years who is cared for very tenderly by his father. The patient has had recurrent upper respiratory infections for the last [address] scan 2 years ago showed a cystic lesion in his right upper lobe with evidence of inflammation. The inflammation improved with antibiotics, but the cyst persisted. I was asked to see him when an apparent mycetoma was noted. I took the patient to the Operating Room on 12/20/2018 and did an uncomplicated robot-assisted thoracoscopic right upper lobectomy and mediastinal lymphadenectomy. The patient did well with no air leak. He had a bit of drainage the first day, but the second day the drainage decreased. He had no air leak and his x-ray looked quite good. I removed his chest tube and I was quite pleased with his x-ray. He was on room air. He was ambulating in the hallway. His incisions were quite clean. He was tolerating a regular diet. His pain control was excellent. I removed the chest tube on postop day 2 and his x-ray looked good. I had a long talk with the patient, his brother and his father. I have explained that I went over the pathology with Dr. Mina Trejo today and it appears that we are dealing with a congenital lesion. This cystic lesion was surrounded by epithelium. At any rate, we were quite pleased with how well he did with the resection. We did note an Aspergillus species and the apparent mycetoma. As the patient's lobe was removed. I do not think he requires treatment for this. We will see him back in the office in 10 days or so. [facility]ITAL[facility]
== END 2018-12-22 17:31 | disposition home or self-care (01) | DRG 164 ==
LOC: ASU 05:37 → 3W 11:35
DX: Z86.19 Personal history of other infectious and parasitic diseases; Q33.0 Congenital cystic lung; Z79.82 Long term (current) use of aspirin; Z87.01 Personal history of pneumonia (recurrent); Z88.2 Allergy status to sulfonamides; B47.9 Mycetoma, unspecified; F81.9 Developmental disorder of scholastic skills, unspecified; B44.1 Other pulmonary aspergillosis; Z79.899 Other long term (current) drug therapy; Z86.711 Personal history of pulmonary embolism; E88.09 Other disorders of plasma-protein metabolism, not elsewhere classified; Z96.0 Presence of urogenital implants; Z16.20 Resistance to unspecified antibiotic; Z88.1 Allergy status to other antibiotic agents; H54.8 Legal blindness, as defined in USA; G35 Multiple sclerosis